=== PATIENT | female | born 1960 | race Caucasian/White ===

== ENCOUNTER 2019-09-25 19:35 | Emergency (ER) | payer MEDICARE, SELFPAY ==
[2019-09-25] VITALS (12 sets, daily range): BP systolic 103–126; BP diastolic 51–86; PULSE 78–174; RESP 17–25; TEMP 36.6; O2SAT 95–99; BMI 38.4
--- NOTE | 2019-09-25 19:58 | ED_ITS ---
Entered by Diane Rodriguez, acting as scribe for HPI - Chest Pain General: Chief Complaint: Chest Pain Stated Complaint: ABD HR Time Seen by Provider: 09/25/19 19:58 Source: patient Mode of arrival: ambulatory History of Present Illness: HPI narrative: 59 yo f came to the er pov with family with afib. Onset was an hour ago. Pt states that she is sweaty. MD complaint: chest pain Pertinent past history: other (afib) Prior episodes: Yes Onset: during rest Pain location: lateral Pain radiation: none Severity: mild Quality: fullness Associated symptoms: Deny abdominal pain, dyspnea or fever(s) Risk Factors: Coronary artery disease risk factors: none Related Data: On Oral Contraceptives: No Review of Systems General: Reports: 10 or more systems reviewed and unremarkable except in HPI and below Const: Denies: fever Eyes: Denies: change in vision ENMT: Denies: throat pain Card: Reports: chest pain and other (afib) Resp: Denies: shortness of breath GI: Denies: abdominal pain : Denies: flank pain Musc: Denies: neck pain Skin/Breast: Denies: rash Neuro: Denies: headache Psych: Denies: anxiety Endo: Denies: excessive urination Good/Lymph: Denies: easy bruising All/Imm: Denies: hives PFSH ED PFSH: Statuses (acute, chronic, etc) shown below reflect problem list status as previously entered and may not be historically accurate Social History Smoking and tobacco status: current every day smoker Course Vital Signs: Vital signs: Vital Signs Temperature 97.9 F 09/25/19 19:43 Pulse Rate 83 09/25/19 21:53 Respiratory Rate 17 09/25/19 21:15 Blood Pressure 117/80 09/25/19 21:15 Pulse Oximetry 99 09/25/19 21:15 MDM - Chest Pain Lab Data: Labs: Lab Results 09/25/19 09/25/19 09/25/19 Range/Units 20:07 20:07 20:07 WBC 10.9 H (4.0-10.0) 10^3/ uL RBC 5.78 H (4.1-5.3) 10^6/u L Hgb 16.2 H (11.5-15.3) g/dL Hct 49.7 H (37.0-47.0) % MCV 86.0 (81-99) fL MCH 28.0 (28.0-34.0) pg MCHC 32.6 (30.0-36.0) g/dL RDW 12.8 (12.1-15.1) % Plt Count 214 (130-400) 10^3/c mm MPV 11.2 H (7.4-10.4) fL Neut % (Auto) 65.0 % Lymph % (Auto) 21.1 % [place] % (Auto) 8.4 % Eos % (Auto) 4.5 % Baso % (Auto) 0.5 % Neut # (Auto) 7.1 (1.8-7.7) 10^3/u L Lymph # (Auto) 2.3 (0.8-4.8) 10^3/u L [place] # (Auto) 0.9 (0.2-0.9) 10^3/u L Eos # (Auto) 0.5 (0.0-0.8) 10^3/u L Baso # (Auto) 0.1 (0.0-0.1) 10^3/u L Nucleated RBC % (a uto) 0 % Nucleated RBCs # 0.0 /100WBC Sodium 140 (136-145) mmol/L Potassium 3.9 (3.5-5.1) mmol/L Chloride 100 (98-107) mmol/L Carbon Dioxide 24 (22-29) mmol/L Anion Gap 19.9 H (5-19) BUN 20 (8-23) mg/dL Creatinine 1.1 H (0.5-0.9) mg/dL GFR Calculation 50.5 L (90-130) mL/min Glucose 217 H (74-106) mg/dL Calcium 10.4 H (8.8-10.2) mg/Dl Total Bilirubin 0.2 (0.15-1.2) mg/dL AST 29 (0-32) U/L ALT 26 (0-33) U/L Alkaline Phosphata se 96 (35-105) IU/L Troponin T Baselin e 42 H (0-10) ng/mL Troponin T 120 Min livan (0-10) ng/mL Delta Troponin T (0-10) ABS# Total Protein 7.5 (6.6-8.7) g/dL Albumin 5.0 (3.5-5.2) g/dL Globulin 2.5 (1.3-4.6) g/dL 09/25/19 Range/Units 22:25 WBC (4.0-10.0) 10^3/ uL RBC (4.1-5.3) 10^6/u L Hgb (11.5-15.3) g/dL Hct (37.0-47.0) % MCV (81-99) fL MCH (28.0-34.0) pg MCHC (30.0-36.0) g/dL RDW (12.1-15.1) % Plt Count (130-400) 10^3/c mm MPV (7.4-10.4) fL Neut % (Auto) % Lymph % (Auto) % [place] % (Auto) % Eos % (Auto) % Baso % (Auto) % Neut # (Auto) (1.8-7.7) 10^3/u L Lymph # (Auto) (0.8-4.8) 10^3/u L [place] # (Auto) (0.2-0.9) 10^3/u L Eos # (Auto) (0.0-0.8) 10^3/u L Baso # (Auto) (0.0-0.1) 10^3/u L Nucleated RBC % (a uto) % Nucleated RBCs # /100WBC Sodium (136-145) mmol/L Potassium (3.5-5.1) mmol/L Chloride (98-107) mmol/L Carbon Dioxide (22-29) mmol/L Anion Gap (5-19) BUN (8-23) mg/dL Creatinine (0.5-0.9) mg/dL GFR Calculation (90-130) mL/min Glucose (74-106) mg/dL Calcium (8.8-10.2) mg/Dl Total Bilirubin (0.15-1.2) mg/dL AST (0-32) U/L ALT (0-33) U/L Alkaline Phosphata se (35-105) IU/L Troponin T Baselin e (0-10) ng/mL Troponin T 120 Min livan 59.33 H (0-10) ng/mL Delta Troponin T 17.33 H (0-10) ABS# Total Protein (6.6-8.7) g/dL Albumin (3.5-5.2) g/dL Globulin (1.3-4.6) g/dL Discharge Plan Discharge Patient Disposition: Home, Self-Care Clinical Impression: Atrial fibrillation Condition: Stable Prescriptions: No Action levothyroxine 175 mcg tablet 175 mcg PO DAILY RF: 0 potassium chloride 10 mEq capsule, extended release 10 meq PO DAILY RF: 0 sotalol 80 mg tablet 80 mg PO BID RF: 0 simvastatin 40 mg tablet 40 mg PO QPM RF: 0 pantoprazole 40 mg tablet,delayed release (DR/EC) 40 mg PO DAILY RF: 0 lisinopril 10 mg tablet 10 mg PO DAILY RF: 0 diltiazem HCl 120 mg capsule,extended release 24hr 120 mg PO DAILY RF: 0 montelukast 10 mg tablet 10 mg PO DAILY RF: 0 glipizide 5 mg tablet 5 mg PO DAILY RF: 0 Eliquis 5 mg tablet 5 mg PO DAILY RF: 0 Discharge Orders: Discharge Order (Routine); Ordered 09/26/19 Ordered By: Steph Broderick Referrals: [id number] [Other] Discharge Diet: Advance as tolerated Discharge Activity: Resume usual activity Patient Instructions: Atrial Fibrillation (ED) Coding Level of Care Code ED Correspondence Review Clerk for Chg Fwaleksandar The documentation recorded by the Michael martínez Stephanie Lyn, accurately reflects the service I personally performed and the decisions made by Davie hawkins Korby, MD Sep 25, 2019 19:35
[2019-09-25 20:14] LABS: Basophils # 0.1 10^3/uL (0.0-0.1); Basophils % 0.5 %; Eosinophils # 0.5 10^3/uL (0.0-0.8); Eosinophils % 4.5 %; Hematocrit 49.7 % (37.0-47.0); Hemoglobin 16.2 g/dL (11.5-15.3); Lymphocytes # 2.3 10^3/uL (0.8-4.8); Lymphocytes % 21.1 %; Mean Corpuscular HGB Conc 32.6 g/dL (30.0-36.0); Mean Platelet Volume 11.2 fL (7.4-10.4); Monocytes # 0.9 10^3/uL (0.2-0.9); Monocytes % 8.4 %; Neutrophils # 7.1 10^3/uL (1.8-7.7); Nucleated Red Blood Cells % 0 %; Platelet Count 214 10^3/cmm (130-400); Red Blood Count 5.78 10^6/uL (4.1-5.3); Red Cell Distribution Width 12.8 % (12.1-15.1); White Blood Count 10.9 10^3/uL (4.0-10.0)
[2019-09-25 20:20] LABS: Add RBC Morph No
[2019-09-25 20:29] LABS: Alanine Aminotransferase 26 U/L (0-33); Alkaline Phosphatase 96 IU/L (35-105); Anion Gap 19.9 (5-19); Aspartate Amino Transferase 29 U/L (0-32); Blood Urea Nitrogen 20 mg/dL (8-23); Calcium 10.4 mg/Dl (8.8-10.2); Carbon Dioxide 24 mmol/L (22-29); Chloride 100 mmol/L (98-107); Globulin 2.5 g/dL (1.3-4.6); Glomerular Filtration Rate 50.5 mL/min (90-130); Glucose 217 mg/dL (74-106); Potassium 3.9 mmol/L (3.5-5.1); Sodium 140 mmol/L (136-145); Total Bilirubin 0.2 mg/dL (0.15-1.2); Total Protein 7.5 g/dL (6.6-8.7)
[2019-09-25] MEDS: sodium chloride 0.9% 1,000 ML 999 ML IV (20:30)
[2019-09-25 20:31] LABS: Troponin(5th) Baseline 42 ng/mL (0-10)
[2019-09-25] MEDS: sodium chloride 0.9% 500 ML 999 ML IV (20:31)
--- NOTE | 2019-09-25 20:50 | XR_ITS ---
WS: [id number] Portable AP upright chest, 09/25/2019 Clinical Data: chest pain Comparison: Portable chest, 06/30/2019 Findings: No nodules, masses or effusions are seen. The heart is normal. The pulmonary vascularity is not increased. No pneumonia or pneumothorax is seen. Monitor leads are on the chest wall. XR/XR chest 1V portable [id number] Impression: Negative chest.
--- NOTE | 2019-09-25 22:04 | ECG_ITS ---
Measurements Intervals [place] Rate: 77 P: 86 SC: 129 QRS: -6 QRSD: 112 T: -87 QT: 424 QTc: 480 SINUS RHYTHM INCOMPLETE RIGHT BUNDLE BRANCH BLOCK MINIMAL VOLTAGE CRITERIA FOR LVH, CONSIDER NORMAL VARIANT ST DEVIATION AND MODERATE T-WAVE ABNORMALITY, CONSIDER ANTEROLATERAL ISCHEMIA ST DEVIATION AND MODERATE T-WAVE ABNORMALITY, CONSIDER INFERIOR ISCHEMIA Compared to ECG 07/02/2019 04:58:49 Sinus bradycardia no longer present Indeterminate axis no longer present T-wave abnormality still present Possible ischemia still present Electronically Signed On 09-26-2019 6:56:51 MAINFRAME SYSTEMS ENGINEER by Yohana Dejesus M.D. [email or web address]
[2019-09-25 22:46] LABS: Troponin 5 2HR 59.33 ng/mL (0-10); Troponin 5 2HR Delta 17.33 ABS# (0-10)
--- NOTE | 2019-09-25 23:56 | PC.NURSE ---
Patient ambulated to bedside commode and sink with no need for assistance. Patient did state that she would like something to drink. Noted for nurse.
--- NOTE | 2019-09-26 00:02 | PC.NURSE ---
Patient is wanting an update on test results and disposition. nurse has been notified, noted in comments for nurse and doctor.
[2019-09-26] MEDS: sodium chloride 0.9% 1,000 ML 999 ML IV (00:20)
[2019-09-26 00:23] VITALS: BP 123/54; PULSE 62; RESP 18; O2SAT 97
[2019-09-26 00:38] VITALS: BP 134/64; PULSE 69; RESP 18; O2SAT 97
--- NOTE | 2019-09-26 02:20 | W.ED.CHESTPA ---
HPI - Chest Pain General: Chief Complaint: Chest Pain Stated Complaint: ABD HR Time Seen by Provider: 09/25/19 19:58 Source: patient Mode of arrival: ambulatory Limitations: no limitations History of Present Illness: HPI narrative: 59-year-old female with a history of A. fib states she started having palpitations roughly 1 to 2 hours ago. Patient's heart rate here is in the 160s. She states that she typically goes in and out of A. fib. She has had palpitations and pain with her heart rate. She states this feels like it does when she goes into A. fib. Onset (ago): hour(s) Pain location: lateral Quality: fullness Associated symptoms: Deny abdominal pain, dyspnea, fever(s), nausea or vomiting Related Data: On Oral Contraceptives: No Review of Systems Const: Denies: fever or chills Eyes: Denies: change in vision ENMT: Denies: throat pain or mouth pain Card: Denies: chest pain Resp: Denies: shortness of breath GI: Denies: abdominal pain, nausea, vomiting or diarrhea : Denies: difficulty urinating Musc: Denies: back pain or joint pain Skin/Breast: Denies: rash Neuro: Denies: headache or behavioral changes Psych: Denies: depression Endo: Denies: excessive urination Good/Lymph: Denies: easy bruising All/Imm: Denies: hives PFSH ED PFSH: Statuses (acute, chronic, etc) shown below reflect problem list status as previously entered and may not be historically accurate Social History Smoking and tobacco status: current every day smoker Physical Exam Const: COMMON NORMALS: no apparent distress, oriented x3 and healthy appearing HENMT: COMMON NORMALS: normocephalic and external nose normal HEAD & SCALP: normocephalic NOSE: external nose normal Eye: COMMON NORMALS: PERRL PUPIL: Yes PERRL Neck/C-Spine: COMMON NORMALS: full ROM and no lymphadenopathy Chest: COMMONS NORMALS: inspection of chest normal Resp: COMMON NORMALS: normal respiratory effort, no use of accessory muscles and clear to auscultation bilaterally AUSCULTATION: clear to auscultation bilaterally Cardio: RATE: tachycardic RHYTHM: abnormal rhythm GI: COMMON NORMALS: normal to inspection, nondistended, normoactive bowel sounds, soft to palpation, non-tender and no masses PALPATION: Yes soft Back/Pelvis: THORACIC SPINE/UPPER BACK: Yes normal to inspection Extremity: COMMON NORMALS: normal to inspection, full ROM and normal capillary refill Neuro: COMMON NORMALS: oriented x3 Psych: COMMON NORMALS: mental status grossly normal and cooperative Skin: COMMON NORMALS: no rashes or lesions noted GENERAL SKIN EXAM: no rashes or lesions noted Course Vital Signs: Vital signs: Vital Signs Temperature 97.9 F 09/25/19 19:43 Pulse Rate 69 09/26/19 00:38 Respiratory Rate 18 09/26/19 00:38 Blood Pressure 134/64 09/26/19 00:38 Pulse Oximetry 97 09/26/19 00:38 MDM - Chest Pain MDM Narrative: Medical decision making narrative: Patient presents here with A. fib with RVR is converted here with Cardizem. Patient does have 2-hour troponin delta of 17 but she states she feels improved and does not want to stay. It is likely due to her A. fib. Patient is requesting discharge I feel she is stable for discharge. She is to follow-up with her primary care doctor in 2 to 5 days and return if worsening. Lab Data: Labs: Lab Results 09/25/19 09/25/19 09/25/19 Range/Units 20:07 20:07 20:07 WBC 10.9 H (4.0-10.0) 10^3/ uL RBC 5.78 H (4.1-5.3) 10^6/u L Hgb 16.2 H (11.5-15.3) g/dL Hct 49.7 H (37.0-47.0) % MCV 86.0 (81-99) fL MCH 28.0 (28.0-34.0) pg MCHC 32.6 (30.0-36.0) g/dL RDW 12.8 (12.1-15.1) % Plt Count 214 (130-400) 10^3/c mm MPV 11.2 H (7.4-10.4) fL Neut % (Auto) 65.0 % Lymph % (Auto) 21.1 % [place] % (Auto) 8.4 % Eos % (Auto) 4.5 % Baso % (Auto) 0.5 % Neut # (Auto) 7.1 (1.8-7.7) 10^3/u L Lymph # (Auto) 2.3 (0.8-4.8) 10^3/u L [place] # (Auto) 0.9 (0.2-0.9) 10^3/u L Eos # (Auto) 0.5 (0.0-0.8) 10^3/u L Baso # (Auto) 0.1 (0.0-0.1) 10^3/u L Nucleated RBC % (a uto) 0 % Nucleated RBCs # 0.0 /100WBC Sodium 140 (136-145) mmol/L Potassium 3.9 (3.5-5.1) mmol/L Chloride 100 (98-107) mmol/L Carbon Dioxide 24 (22-29) mmol/L Anion Gap 19.9 H (5-19) BUN 20 (8-23) mg/dL Creatinine 1.1 H (0.5-0.9) mg/dL GFR Calculation 50.5 L (90-130) mL/min Glucose 217 H (74-106) mg/dL Calcium 10.4 H (8.8-10.2) mg/Dl Total Bilirubin 0.2 (0.15-1.2) mg/dL AST 29 (0-32) U/L ALT 26 (0-33) U/L Alkaline Phosphata se 96 (35-105) IU/L Troponin T Baselin e 42 H (0-10) ng/mL Troponin T 120 Min livan (0-10) ng/mL Delta Troponin T (0-10) ABS# Total Protein 7.5 (6.6-8.7) g/dL Albumin 5.0 (3.5-5.2) g/dL Globulin 2.5 (1.3-4.6) g/dL 09/25/19 Range/Units 22:25 WBC (4.0-10.0) 10^3/ uL RBC (4.1-5.3) 10^6/u L Hgb (11.5-15.3) g/dL Hct (37.0-47.0) % MCV (81-99) fL MCH (28.0-34.0) pg MCHC (30.0-36.0) g/dL RDW (12.1-15.1) % Plt Count (130-400) 10^3/c mm MPV (7.4-10.4) fL Neut % (Auto) % Lymph % (Auto) % [place] % (Auto) % Eos % (Auto) % Baso % (Auto) % Neut # (Auto) (1.8-7.7) 10^3/u L Lymph # (Auto) (0.8-4.8) 10^3/u L [place] # (Auto) (0.2-0.9) 10^3/u L Eos # (Auto) (0.0-0.8) 10^3/u L Baso # (Auto) (0.0-0.1) 10^3/u L Nucleated RBC % (a uto) % Nucleated RBCs # /100WBC Sodium (136-145) mmol/L Potassium (3.5-5.1) mmol/L Chloride (98-107) mmol/L Carbon Dioxide (22-29) mmol/L Anion Gap (5-19) BUN (8-23) mg/dL Creatinine (0.5-0.9) mg/dL GFR Calculation (90-130) mL/min Glucose (74-106) mg/dL Calcium (8.8-10.2) mg/Dl Total Bilirubin (0.15-1.2) mg/dL AST (0-32) U/L ALT (0-33) U/L Alkaline Phosphata se (35-105) IU/L Troponin T Baselin e (0-10) ng/mL Troponin T 120 Min livan 59.33 H (0-10) ng/mL Delta Troponin T 17.33 H (0-10) ABS# Total Protein (6.6-8.7) g/dL Albumin (3.5-5.2) g/dL Globulin (1.3-4.6) g/dL EKG Data^: EKG 1: Attestation: I personally reviewed and interpreted this EKG as follows: EKG interpretation date: 09/25/19 EKG interpretation time: 19:52 Interpretation: afib with rvr hr [address] or t wave abnormalities EKG 2: Attestation: I personally reviewed and interpreted this EKG as follows: EKG interpretation date: 09/26/19 EKG interpretation time: 22:07 Interpretation: hr [address] or t wave abnormalities nsr Discharge Plan Discharge Patient Disposition: Home, Self-Care Clinical Impression: Atrial fibrillation Qualifiers: Atrial fibrillation type: paroxysmal Qualified Code(s): I48.0 - Paroxysmal atrial fibrillation Condition: Stable Prescriptions: No Action levothyroxine 175 mcg tablet 175 mcg PO DAILY RF: 0 potassium chloride 10 mEq capsule, extended release 10 meq PO DAILY RF: 0 sotalol 80 mg tablet 80 mg PO BID RF: 0 simvastatin 40 mg tablet 40 mg PO QPM RF: 0 pantoprazole 40 mg tablet,delayed release (DR/EC) 40 mg PO DAILY RF: 0 lisinopril 10 mg tablet 10 mg PO DAILY RF: 0 diltiazem HCl 120 mg capsule,extended release 24hr 120 mg PO DAILY RF: 0 montelukast 10 mg tablet 10 mg PO DAILY RF: 0 glipizide 5 mg tablet 5 mg PO DAILY RF: 0 Eliquis 5 mg tablet 5 mg PO DAILY RF: 0 Discharge Orders: Discharge Order (Routine); Ordered 09/26/19 Ordered By: Steph Broderick Referrals: REYES [Other] Discharge Diet: Advance as tolerated Discharge Activity: Resume usual activity Patient Instructions: Atrial Fibrillation (ED) Discharge Date/Time: 09/26/19 01:00 Coding Level of Care Code ED Payloader Operator for Wendie Mata
== END 2019-09-26 01:00 | disposition home or self-care (01) ==
PROVIDERS: Emergency Provider Emergency Medicine
DX: I48.91 Unspecified atrial fibrillation (principal); F17.210 Nicotine dependence, cigarettes, uncomplicated
CPT/HCPCS: 36415; 71045; 80053; 84484; 85025; 93005; 96360; 96361; 96374; 99282; J3490; J7030; J7040

== ENCOUNTER 2019-10-08 09:00 | Outpatient (CLI) | payer MEDICARE, SELFPAY | END 2019-10-08 09:01 | disposition home or self-care (01) | LOC: SLEEP 10-09 09:01 | DX: G47.33 Obstructive sleep apnea (adult) (pediatric) (principal) | CPT/HCPCS: 95810; 95811 ==

== ENCOUNTER 2019-10-28 08:13 | Outpatient (CLI) | payer MEDICARE, SELFPAY | END 2019-10-28 08:14 | disposition home or self-care (01) | LOC: RT 08:18 | DX: J44.9 Chronic obstructive pulmonary disease, unspecified (principal) | CPT/HCPCS: 94010 ==

== ENCOUNTER 2020-04-23 11:54 | Outpatient (CLI) | payer MEDICARE, SELFPAY ==
--- NOTE | 2020-04-23 12:10 | XRR_ITS ---
PROCEDURE INFORMATION: Exam: XR Lumbosacral Spine Complete with Flexion/Extension, 6 or More Views Exam date and time: 04/23/2020 12:51 PM Age: 59 years old Clinical indication: Pain; Lumbago; Additional info: Lumbago w/sciatica, left side TECHNIQUE: Imaging protocol: XR of the lumbosacral spine with flexion/extension, 6 or more views. Other technique: AP, both oblique, neutral, flexion and extension lateral, and spot lateral views of the lumbar spine are submitted. COMPARISON: MRI Lumbar Spine w/o [id number] 01/23/2014 3:41 PM FINDINGS: Vertebrae: Bilateral L4-L5 and L5-S1 lumbar facet primary osteoarthritis. There is 8.4 mm anterolisthesis of L4 on L5 in the neutral position. No instability with flexion or extension positioning identified. Moderate L5-S1 spondylosis, likely L5-S1 neural foraminal stenoses.. Vasculature: Moderate aortic and bilateral iliac artery atherosclerotic calcifications without evidence of aneurysm. Soft tissues: Unremarkable. XR/XR lumbar spine 6V w f/e [id number] IMPRESSION: 1. Grade 1 L4-5 degenerative type anterolisthesis. 2. No instability with flexion or extension positioning identified.
== END 2020-04-23 11:55 | disposition home or self-care (01) ==
LOC: RAD 12:00
DX: M54.42 Lumbago with sciatica, left side (principal)
CPT/HCPCS: 72114

== ENCOUNTER 2020-05-21 10:06 | Outpatient (CLI) | payer MEDICARE, SELFPAY ==
--- NOTE | 2020-05-21 10:09 | CT_ITS ---
WS: [id number] LDCT LUNG CANCER SCREENING TECHNIQUE: Noncontrast CT of the chest with coronal and sagittal reformatted images. CLINICAL INFORMATION: NICOTINE DEPENDENCE COMPARISON: CT chest 9 ,017 DLP: 70.96 mGy.cm DIvol: 2.[address] scans at [facility] use at least one of these dose optimization techniques: automat ed exposure control; mA and/or kV adjustment per patient size (includes targeted exams where dose is matched to clinical indication); or iterative reconstruction. FINDINGS: No acute pulmonary infiltrates. Tiny 1 to 2 mm noncalcified nodule left upper lobe. A few calcified g ranulomas. No axillary lymphadenopathy. Coronary calcification. Normal caliber thoracic aorta. Cardio megaly. A few prominent anterior mediastinal lymph nodes similar to previous. Slightly prominent agusto r lymph nodes also similar to previous. Small esophageal hiatal hernia. Hypertrophic changes thoracic spine. CT/CT lung screening [id number] IMPRESSION: LUNG-RADS: 2-Benign Appearance or Behavior FOLLOW UP: 12 Month: Continue annual screening with LDCT
== END 2020-05-21 10:07 | disposition home or self-care (01) ==
LOC: CT 10:07
DX: Z12.2 Encounter for screening for malignant neoplasm of respiratory organs (principal); F17.210 Nicotine dependence, cigarettes, uncomplicated
CPT/HCPCS: G0297

== ENCOUNTER 2020-07-24 23:01 | Observation (INO) | payer MEDICARE, SELFPAY ==
--- NOTE | 2020-07-24 23:03 | XRR_ITS ---
PROCEDURE INFORMATION: Exam: XR Chest, 1 View Exam date and time: 07/24/2020 11:35 PM Age: 60 years old Clinical indication: Chest pain; Prior surgery; Surgery type: Lumpectomy; Patient HX: Palpitations, a fib, cp TECHNIQUE: Imaging protocol: XR of the chest Views: 1 view. COMPARISON: CR XR chest 1V portable [id number] 09/25/2019 9:24 PM FINDINGS: Lungs: Visualized portions of the lungs are clear. Pleural space: Unremarkable. No pleural effusion. No pneumothorax. Heart/Mediastinum: Heart is upper limits of normal in size. Bones/joints: Unremarkable. XR/XR chest 1V portable [id number] IMPRESSION: No acute infiltrates. No significant change from 09/25/2019
--- NOTE | 2020-07-24 23:04 | ECG_ITS ---
[facility] Test Date: 2020-07-24 Pat Name: Trena Segura Department: Room: Gender: Female Socket Puller: : 1960 Requested By: Blanca Longoria Order Number: [id number] John MD: ABDI AMBROSE Measurements Intervals [place] Rate: 141 P: -10 DC: 173 QRS: -67 QRSD: 124 T: 94 QT: 333 QTc: 510 Interpretive Statements SINUS TACHYCARDIA, POSSIBLE ATRIAL FLUTTER RIGHT BUNDLE BRANCH BLOCK [120+ ms QRS DURATION, UPRIGHT V1, 40+ ms S IN I/aVL/V4/V5/V6] LEFT ANTERIOR FASCICULAR BLOCK [QRS AXIS <= -45, QR IN I, RS IN II] LEFT VENTRICULAR HYPERTROPHY AND ST-T CHANGE [VOLTAGE CRITERIA PLUS ST/T ABNORMALITY] POSSIBLE SEPTAL MYOCARDIAL INFARCTION , OF INDETERMINATE AGE [30 ms Q WAVE IN V1/V2] Compared to ECG 09/25/2019 22:07:22 Patient is tachycardic now Electronically Signed On 07-25-2020 18:28:09 CDT by ABDI AMBROSE [id number]
[2020-07-24 23:11] VITALS: BP 117/76; PULSE 128; RESP 18; TEMP 36.4; O2SAT 97; BMI 35.9
[2020-07-24 23:22] VITALS: O2SAT 100
[2020-07-24 23:30] VITALS: BP 127/85; PULSE 141; RESP 23; O2SAT 98
[2020-07-24 23:33] VITALS: BP 127/85; PULSE 140; RESP 19; O2SAT 99
[2020-07-24 23:35] LABS: Basophils # 0.1 10^3/uL (0.0-0.1); Basophils % 0.6 %; Eosinophils # 0.6 10^3/uL (0.0-0.8); Eosinophils % 6.3 %; Hematocrit 49.4 % (37.0-47.0); Hemoglobin 16.4 g/dL (11.5-15.3); Lymphocytes # 2.1 10^3/uL (0.8-4.8); Lymphocytes % 24.2 %; Mean Corpuscular HGB Conc 33.2 g/dL (30.0-36.0); Mean Corpuscular Hemoglobin 29.3 pg (28.0-34.0); Mean Corpuscular Volume 88.2 fL (81-99); Mean Platelet Volume 10.9 fL (7.4-10.4); Monocytes # 0.8 10^3/uL (0.2-0.9); Neutrophils # 5.26 10^3/uL (1.8-7.7); Neutrophils % 59.4 %; Nucleated Red Blood Cells % 0 %; Platelet Count 204 10^3/cmm (130-400); Red Cell Distribution Width 13.1 % (12.1-15.1); White Blood Count 8.9 10^3/uL (4.0-10.0)
[2020-07-24 23:45] VITALS: BP 113/88; PULSE 113; RESP 21; O2SAT 100
[2020-07-24 23:45] LABS: INR 0.94 (0.8-1.2)
--- NOTE | 2020-07-24 23:52 | ED_ITS ---
HPI - Arrhythmia/Palpitations General: Chief Complaint: Arrhythmia/Palpitations Stated Complaint: possible a fib Time Seen by Provider: 07/24/20 23:17 Source: patient and family Mode of arrival: ambulatory Limitations: no limitations History of Present Illness: HPI narrative: Trena is a very nice 60-year-old female who comes in complaining of chest discomfort with palpitations. Patient has a history of paroxysmal atrial fibrillation as she states at 2 PM today she felt her heart go into A. fib. It is uncomfortable in her chest. She cannot describe the discomfort any further other than as a discomfort . She has shortness of breath more so when she exerts herself. She denies any radiation of the discomfort, diaphoresis, nausea vomiting or other complaint. Patient is unaware of any exacerbating or alleviating factors other than exertion makes her shortness of breath worse. She denies fever, cough, chills, headache, abdominal, back pain or urinary symptoms. Patient denies missing any of her medications but states that she did increase her caffeine intake today and she can be sensitive to that. Associated symptoms: Deny diaphoresis, nausea, pre-syncope, syncope or vomiting Review of Systems Const: Denies: fever(s), chills, body aches, fatigue, malaise or diaphoresis Eyes: Denies: change in vision, blurry vision, photophobia, eye discomfort, eye discharge, eye redness or yellow eyes ENMT: Denies: throat pain, odynophagia, hoarseness, swelling of lips/tongue, ear or mastoid pain, ear discharge, change in hearing or nasal discharge Card: Denies: edema, lightheadedness, syncope, pre-syncope, dyspnea on exertion or orthopnea Resp: Denies: productive cough, non-productive cough, wheezing, hemoptysis or chest congestion GI: Denies: abdominal pain, nausea, vomiting, hematemesis, coffee ground emesis, heartburn, diarrhea, constipation, GI cramping, hematochezia or melena : Denies: flank pain, dysuria, urinary frequency, urinary urgency or hematuria Musc: Denies: neck pain, back pain, extremity pain, extremity swelling, joint pain, joint swelling, joint redness, joint warmth or joint stiffness Skin/Breast: Denies: rash, pruritus, erythema, skin pain or skin tenderness Neuro: Denies: headache(s), numbness in extremities, weakness in extremities, sensory changes, lack of coordination, difficulty walking, dizziness, vertigo, confusion, Slurred speech present or seizure-like activity Good/Lymph: Denies: easy bruising, easy bleeding, petechiae, purpura or enlarged lymph nodes All/Imm: Denies: urticaria, throat swelling, tongue swelling, facial swelling or acute wheezing PFSH ED PFSH: Medical History History of chronic atrial fibrillation History of COPD History of degenerative joint disease History of depression History of diverticulosis History of fibromyalgia History of fracture of lower extremity History of hypertension History of hypothyroidism Hx of atrial flutter Hx of chronic congestive heart failure Hx of colonic polyps Hx of coronary artery disease Hx of diastolic dysfunction Hx of gastroesophageal reflux (GERD) Hx of gout Hx of hemorrhoids Hx of hyperlipidemia Hx of myocardial infarction Hx of nicotine dependence Hx of obesity Hx of osteoporosis Hx of simple renal cyst Hx of sleep apnea Hx of type 2 diabetes mellitus Surgical History History of coronary artery stent placement History of total left knee replacement History of total right knee replacement (TKR) Hx of breast reduction, elective Hx of colonoscopy Hx of coronary angioplasty Hx of esophagogastroduodenoscopy Hx of skin graft Hx of tonsillectomy Social History Smoking and tobacco status: current every day smoker Physical Exam Const: COMMON NORMALS: no acute distress, patient oriented x3, no limitations and alert GENERAL APPEARANCE: cooperative HENMT: COMMON NORMALS: normocephalic, atraumatic, external ears normal, EAC's normal and Normal external nose present HEAD & SCALP: normal to inspection, normocephalic and atraumatic FACE & SINUS: normal facial exam and face symmetric NOSE: Normal external nose present and Normal nares present EXTERNAL EAR: Yes external ears normal EXTERNAL AUDITORY CANAL: EAC's normal MOUTH: Normal oral and palatal mucosa present, lip normal and tongue normal Eye: COMMON NORMALS: Equal, round and reactive pupils present and conjunctivae normal GENERAL EYE: appearance normal, both eyes and all related structures ALIGNMENT: Yes alignment normal PERIORBITAL: periorbital findings normal EYELID: eyelids normal CONJUNCTIVA: Yes conjunctivae normal SCLERA: sclerae normal PUPIL: Yes Equal, round and reactive pupils present Neck/C-Spine: COMMON NORMALS: full ROM, no lymphadenopathy, supple, no meningeal signs and no JVD GENERAL: Yes normal visual inspection and Yes trachea midline Chest: COMMONS NORMALS: normal inspection of the chest and normal palpation of entire chest wall Resp: COMMON NORMALS: normal respiratory effort, No retractions, No use of accessory muscles and clear to auscultation bilaterally EFFORT & INSPECTION: Yes able to speak in complete sentences and Yes symmetric chest movement AUSCULTATION: clear to auscultation bilaterally, no crackles, no rales, no rhonchi and no wheezes Cardio: COMMON NORMALS: no JVD, S1 normal heart sound present and S2 normal heart sound present RATE: tachycardic RHYTHM: abnormal rhythm irregularly irregular HEART SOUNDS: S1 normal heart sound present, S2 normal heart sound present, no click, no gallops, no murmurs and no rubs GI: COMMON NORMALS: Soft to palpation and No hepatosplenomegaly present PALPATION: Yes Soft to palpation, No Tenderness to palpation present (GI), No Guarding due to palpation present (GI), No Rigid due to palpation, Yes No hepatosplenomegaly present, No Hernia present, No Palpable mass present and No Pulsatile mass present : COMMON NORMALS: Yes no CVA tenderness BLADDER/KIDNEY EXAM: Yes no CVA tenderness EXTERNAL FEMALE EXAM: No Hernia present Back/Pelvis: COMMON NORMALS: no CVA tenderness, thoracic and lumbar spine normal to inspection, no thoracic nor lumbar tenderness and thoraco-lumbar ROM normal Extremity: COMMON NORMALS: normal to inspection, full ROM, capillary refill normal, no joint enlargement, no clubbing, cyanosis or edema and no calf tenderness Neuro: COMMON NORMALS: patient oriented x3, CN's II-XII intact bilaterally, moves all extremities, no focal motor deficits and no sensory deficits noted SENSORIUM/ORIENTATION: Yes alert MENINGEAL SIGNS: Yes no meningeal signs SPEECH: speech normal Psych: COMMON NORMALS: mental status grossly normal, Normal thought process present, cooperative, normal affect, speech normal and activity/motor behavior normal SPEECH: Yes normal speech THOUGHT PROCESS: Normal thought process present Skin: COMMON NORMALS: no rashes or lesions noted, turgor normal, no jaundice, no petechiae and no mottling GENERAL SKIN EXAM: no rashes or lesions noted and turgor normal Course Vital Signs: Vital signs: Vital Signs Temperature 97.5 F L 07/24/20 23:11 Pulse Rate 136 H 07/25/20 00:34 Respiratory Rate 23 H 07/25/20 00:34 Blood Pressure 142/98 07/25/20 00:34 Pulse Oximetry 98 07/25/20 00:34 MDM - Arrhythmia/Palpitations MDM Narrative: Medical decision making narrative: Trena's heart rate improved after the second bolus and we did a trial of keeping her off the drip but within just a few minutes her heart rate went back into the 120 range. We had to turn the drip back on and up to a higher rate to keep it down. Currently her heart rate is 103 at 7.5 mg/h of diltiazem. She had a positive delta but I think this was due to the elevated heart rate as the patient has no significant ST or T wave changes and is not having any chest discomfort any longer. Her magnesium was low and I replaced this but the drip did not seem to cause any change in her heart rate. Patient is already anticoagulated so she will not need any additional anticoagulation at this time. I endorsed the case to Dr. Dickinson and he is agreeable to admission. Lab Data: Attestation: I reviewed the patient's lab results. Labs: Lab Results 07/24/20 07/24/20 07/24/20 Range/Units 23:29 23:29 23:29 WBC 8.9 (4.0-10.0) 10^3/ uL RBC 5.60 H (4.1-5.3) 10^6/u L Hgb 16.4 H (11.5-15.3) g/dL Hct 49.4 H (37.0-47.0) % MCV 88.2 (81-99) fL MCH 29.3 (28.0-34.0) pg MCHC 33.2 (30.0-36.0) g/dL RDW 13.1 (12.1-15.1) % Plt Count 204 (130-400) 10^3/c mm MPV 10.9 H (7.4-10.4) fL Neut % (Auto) 59.4 % Lymph % (Auto) 24.2 % [place] % (Auto) 9.0 % Eos % (Auto) 6.3 % Baso % (Auto) 0.6 % Neut # (Auto) 5.26 (1.8-7.7) 10^3/u L Lymph # (Auto) 2.1 (0.8-4.8) 10^3/u L [place] # (Auto) 0.8 (0.2-0.9) 10^3/u L Eos # (Auto) 0.6 (0.0-0.8) 10^3/u L Baso # (Auto) 0.1 (0.0-0.1) 10^3/u L Nucleated RBC % (a uto) 0 % Nucleated RBCs # 0.0 /100WBC PT 12.90 (12.1-14.9) SECO NDS INR 0.94 (0.8-1.2) Sodium 134 L (136-145) mmol/L Potassium 4.1 (3.5-5.1) mmol/L Chloride 99 (98-107) mmol/L Carbon Dioxide 21 L (22-29) mmol/L Anion Gap 18.1 (5-19) BUN 14 (8-23) mg/dL Creatinine 0.9 (0.5-0.9) mg/dL GFR Calculation 63.4 L (90-130) mL/min Glucose 261 H (65-115) mg/dL Calculated Osmolal ity 288 (285-295) mOsm/k g Calcium 9.6 (8.5-10.5) mg/dL Magnesium 1.6 L (1.7-2.3) mg/dL Total Bilirubin 0.3 (0.15-1.2) mg/dL AST 28 (0-32) U/L ALT 35 H (0-33) U/L Alkaline Phosphata se 137 H (35-105) IU/L Troponin T Baselin e (0-10) ng/L Troponin T 120 Min [place] (0-10) ng/L Delta Troponin T (0-10) ABS# Total Protein 6.9 (6.6-8.7) g/dL Albumin 4.6 (3.5-5.2) g/dL Globulin 2.3 (1.3-4.6) g/dL TSH 2.73 (0.27-4.20) uIU/ mL Free T4 1.58 (0.82-1.77) ng/d L Urine Color (Yellow) Urine Appearance (CLEAR) Urine pH (5-7) Ur Specific Gravit y (1.005-1.030) Urine Protein (Negative) Urine Glucose (UA) (Normal) Urine Ketones (Negative) Urine Blood (Negative) Urine Nitrate (Negative) Urine Bilirubin (Negative) Urine Urobilinogen (Negative) mg/dL Ur Leukocyte Abida ase (Negative) 07/24/20 07/25/20 07/25/20 Range/Units 23:29 01:06 01:27 WBC (4.0-10.0) 10^3/ uL RBC (4.1-5.3) 10^6/u L Hgb (11.5-15.3) g/dL Hct (37.0-47.0) % MCV (81-99) fL MCH (28.0-34.0) pg MCHC (30.0-36.0) g/dL RDW (12.1-15.1) % Plt Count (130-400) 10^3/c mm MPV (7.4-10.4) fL Neut % (Auto) % Lymph % (Auto) % [place] % (Auto) % Eos % (Auto) % Baso % (Auto) % Neut # (Auto) (1.8-7.7) 10^3/u L Lymph # (Auto) (0.8-4.8) 10^3/u L [place] # (Auto) (0.2-0.9) 10^3/u L Eos # (Auto) (0.0-0.8) 10^3/u L Baso # (Auto) (0.0-0.1) 10^3/u L Nucleated RBC % (a uto) % Nucleated RBCs # /100WBC PT (12.1-14.9) SECO NDS INR (0.8-1.2) Sodium (136-145) mmol/L Potassium (3.5-5.1) mmol/L Chloride (98-107) mmol/L Carbon Dioxide (22-29) mmol/L Anion Gap (5-19) BUN (8-23) mg/dL Creatinine (0.5-0.9) mg/dL GFR Calculation (90-130) mL/min Glucose (65-115) mg/dL Calculated Osmolal ity (285-295) mOsm/k g Calcium (8.5-10.5) mg/dL Magnesium (1.7-2.3) mg/dL Total Bilirubin (0.15-1.2) mg/dL AST (0-32) U/L ALT (0-33) U/L Alkaline Phosphata se (35-105) IU/L Troponin T Baselin e 48 H (0-10) ng/L Troponin T 120 Min [place] 62.08 H (0-10) ng/L Delta Troponin T 14.08 H* (0-10) ABS# Total Protein (6.6-8.7) g/dL Albumin (3.5-5.2) g/dL Globulin (1.3-4.6) g/dL TSH (0.27-4.20) uIU/ mL Free T4 (0.82-1.77) ng/d L Urine Color Straw (Yellow) Urine Appearance Clear (CLEAR) Urine pH 6 (5-7) Ur Specific Gravit y 1.005 (1.005-1.030) Urine Protein Neg (Negative) Urine Glucose (UA) Trace H (Normal) Urine Ketones Negative (Negative) Urine Blood Neg (Negative) Urine Nitrate Negative (Negative) Urine Bilirubin Neg (Negative) Urine Urobilinogen Norm (Negative) mg/dL Ur Leukocyte Abida ase Negative (Negative) Imaging Data^: CXR: Attestation: I personally reviewed and interpreted this imaging study as follows: My impression: No acute cardiopulmonary findings. EKG Data^: EKG 1: Attestation: I personally reviewed and interpreted this EKG as follows: EKG interpretation date: 07/25/20 EKG interpretation time: 23:25 Interpretation: Atrial fibrillation with rapid ventricular [place] 141 beats a minute. Right bundle branch block. Left axis deviation. Left anterior f ascicular block. LVH. Nonspecific ST and T wave changes. Other EKG comments: Chest X-Ray 07/24/20 23:03 IMPRESSION: No acute infiltrates. No significant change from 09/25/2019 EKG 2: Attestation: I personally reviewed and interpreted this EKG as follows: EKG interpretation date: 07/25/20 EKG interpretation time: 01:15 Interpretation: Probable atrial flutter with a ventricular rate of 136 beats a minute, left axis deviation, left anterior fascicular block, left ventricular perjury, no other acute abnormalities. Other EKG comments: Chest X-Ray 07/24/20 23:03 IMPRESSION: No acute infiltrates. No significant change from 09/25/2019 Discharge Plan Discharge Patient Disposition: Placed in Observation Clinical Impression: Atrial fibrillation with rapid ventricular response Condition: Stable Prescriptions: No Action levothyroxine 175 mcg tablet 175 mcg PO DAILY RF: 0 potassium chloride 10 mEq capsule, extended release 10 meq PO DAILY RF: 0 sotalol 80 mg tablet 80 mg PO BID RF: 0 simvastatin 40 mg tablet 40 mg PO QPM RF: 0 pantoprazole 40 mg tablet,delayed release (DR/EC) 40 mg PO DAILY RF: 0 lisinopril 10 mg tablet 10 mg PO DAILY RF: 0 diltiazem HCl 120 mg capsule,extended release 24hr 120 mg PO DAILY RF: 0 montelukast 10 mg tablet 10 mg PO DAILY RF: 0 glipizide 5 mg tablet 5 mg PO DAILY RF: 0 Eliquis 5 mg tablet 5 mg PO DAILY RF: 0 Referrals: Nirmal Hines [Primary Care Provider] - Coding Level of Care Code ED 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
[2020-07-24 23:53] LABS: Troponin(5th) Baseline 48 ng/L (0-10)
[2020-07-24 23:58] VITALS: BP 113/88; PULSE 142; RESP 23; O2SAT 99
[2020-07-24] MEDS: sodium chloride 0.9% 1,000 ML 999 ML IV (23:58)
[2020-07-25] VITALS (16 sets, daily range): BP systolic 98–150; BP diastolic 51–110; PULSE 68–142; RESP 16–28; TEMP 36.4; O2SAT 92–100
[2020-07-25 00:03] LABS: Alanine Aminotransferase 35 U/L (0-33); Albumin Level 4.6 g/dL (3.5-5.2); Alkaline Phosphatase 137 IU/L (35-105); Aspartate Amino Transferase 28 U/L (0-32); Blood Urea Nitrogen 14 mg/dL (8-23); Calcium 9.6 mg/dL (8.5-10.5); Carbon Dioxide 21 mmol/L (22-29); Chloride 99 mmol/L (98-107); Free T4 Free Thyroxine 1.58 ng/dL (0.82-1.77); Globulin 2.3 g/dL (1.3-4.6); Glomerular Filtration Rate 63.4 mL/min (90-130); Glucose 261 mg/dL (65-115); Magnesium 1.6 mg/dL (1.7-2.3); Osmolality Calculated 288 mOsm/kg (285-295); Sodium 134 mmol/L (136-145); Thyroid Stimulating Hormone 2.73 uIU/mL (0.27-4.20); Total Bilirubin 0.3 mg/dL (0.15-1.2); Total Protein 6.9 g/dL (6.6-8.7)
[2020-07-25 00:04] LABS: Anion Gap 18.1 (5-19); Potassium 4.1 mmol/L (3.5-5.1)
[2020-07-25] MEDS: magnesium sulfate premix 2 GM/50 ML PIGGYBACK IV (00:33)
--- NOTE | 2020-07-25 01:04 | ECG_ITS ---
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1960 Requested By: Blanca Longoria Order Number: [id number] John MD: ABDI AMBROSE Measurements Intervals [place] Rate: 136 P: 41 ID: [id number] QRS: -59 QRSD: 129 T: 97 QT: 349 QTc: 527 Interpretive Statements SINUS TACHYCARDIA RIGHT BUNDLE BRANCH BLOCK [120+ ms QRS DURATION, UPRIGHT V1, 40+ ms S IN I/aVL/V4/V5/V6] LEFT ANTERIOR FASCICULAR BLOCK [QRS AXIS <= -45, QR IN I, RS IN II] LEFT VENTRICULAR HYPERTROPHY AND ST-T CHANGE [VOLTAGE CRITERIA PLUS ST/T ABNORMALITY] Compared to ECG 07/24/2020 23:25:34 Myocardial infarct finding no longer present ST (T wave) deviation still present Electronically Signed On 07-25-2020 18:32:22 CDT by ABDI AMBROSE [id number]
[2020-07-25 01:37] LABS: Add Urine Microscopic? NO
[2020-07-25 01:48] LABS: Protein Urine Neg (Negative); Specific Gravity, Urine 1.005 (1.005-1.030); Urine Appearance Clear (CLEAR); Urine Color Straw (Yellow); pH Urine 6 (5-7)
[2020-07-25 01:49] LABS: Bilirubin Urine Neg (Negative); Blood Urine Neg (Negative); Glucose Urine UA Trace (Normal); Ketones Urine Negative (Negative); Leukocyte Esterase Urine Negative (Negative); Nitrate Urine Negative (Negative); Urobilinogen Urine Norm (Negative)
[2020-07-25 02:00] LABS: Troponin 5 2HR 62.08 ng/L (0-10)
[2020-07-25 02:16] LABS: Troponin 5 2HR Delta 14.08 ABS# (0-10)
--- NOTE | 2020-07-25 02:19 | PC.NURSE ---
lab called critical 2 hour delta 14.08. Notified Dr. Preston. No orders at this time
--- NOTE | 2020-07-25 02:29 | PM.HP ---
Providers/Chief Complaint Primary Care Provider: Nirmal Hines Chief Complaint: possible a fib History of Present Illness 60-year-old female with a past medical history significant for chronic obstructive pulmonary disease, tobacco abuse, hypothyroidism, diabetes mellitus, dyslipidemia, hypertension, coronary artery disease, paroxysmal atrial fibrillation/flutter on sotalol, diltiazem and Eliquis was presented to the hospital with palpitations which started earlier today. Patient stated that she has recently been under a lot of stress due to in the family. Has missed multiple doses of for diltiazem this week. Today she noted a funny sensation during which time she checked her blood pressure and heart rate and noted elevated rate. Denied chest pain. Denied shortness of breath. No recent fever, chills, nausea vomiting. Denied abdominal pain, diarrhea constipation. Upon arrival to emergency room she was noted to be in rapid rate in low 140s Initial laboratory workup showed a WBC of 8.9, hemoglobin is 16.4, hematocrit of 49.4 and a platelet count of 204. INR of 0.94. Sodium 134, potassium 4.1, chloride 99, bicarb 21, BUN 14 and creatinine is 0.9. Glucose was elevated 261. Magnesium of 1.6. AST of 28, ALT of 35. TSH of 2.73 and free T4 1.58. In ER patient was started on Cardizem gtt. Also given IL Bolus of NS as well as magnesium 2g IV x 1. Review of Systems General: Reports: 10 or more systems reviewed and unremarkable except in HPI and below Medications/Allergies Home Medications Medication Instructions Recorded Confirmed Last Taken Type apixaban [Eliquis] 5 mg PO DAILY 09/25/19 06/29/20 09/25/19 History diltiazem HCl 120 mg PO DAILY 09/25/19 06/29/20 09/25/19 History glipizide 5 mg PO DAILY 09/25/19 06/29/20 09/25/19 History levothyroxine 175 mcg PO DAILY 09/25/19 06/29/20 09/25/19 History lisinopril 10 mg PO DAILY 09/25/19 06/29/20 09/25/19 History montelukast 10 mg PO DAILY 09/25/19 06/29/20 09/24/19 History pantoprazole 40 mg PO DAILY 09/25/19 06/29/20 09/25/19 History potassium chloride 10 meq PO DAILY 09/25/19 06/29/20 09/25/19 History simvastatin 40 mg PO QPM 09/25/19 06/29/20 09/24/19 History sotalol 80 mg PO BID 09/25/19 06/29/20 09/25/19 History Allergies Allergy/AdvReac Type Severity Reaction Status Date / Time latex Allergy Unknown Unknown Unverified 10/09/19 13:01 Penicillins Allergy Unknown Unknown Unverified 10/09/19 13:01 adhesive tape Allergy RASH Verified 06/03/20 08:09 PFSH Acute PFSH: Medical History History of chronic atrial fibrillation History of COPD History of degenerative joint disease History of depression History of diverticulosis History of fibromyalgia History of fracture of lower extremity History of hypertension History of hypothyroidism Hx of atrial flutter Hx of chronic congestive heart failure Hx of colonic polyps Hx of coronary artery disease Hx of diastolic dysfunction Hx of gastroesophageal reflux (GERD) Hx of gout Hx of hemorrhoids Hx of hyperlipidemia Hx of myocardial infarction Hx of nicotine dependence Hx of obesity Hx of osteoporosis Hx of simple renal cyst Hx of sleep apnea Hx of type 2 diabetes mellitus Surgical History History of coronary artery stent placement History of total left knee replacement History of total right knee replacement (TKR) Hx of breast reduction, elective Hx of colonoscopy Hx of coronary angioplasty Hx of esophagogastroduodenoscopy Hx of skin graft Hx of tonsillectomy Social History Smoking and tobacco status: current every day smoker Vitals/I&O/Wt Last Vital Signs Temp 97.5 F L 07/24/20 23:11 Pulse 136 H 07/25/20 00:34 Resp 23 H 07/25/20 00:34 BP 142/98 07/25/20 00:34 Pulse Ox 98 07/25/20 00:34 07/24/20 07/24/20 07/25/20 14:59 22:59 06:59 Intake Total 1050 / 1050 Balance 1050 / 1050 Weight last 48 hrs Weight 86.183 kg Physical Exam Narrative: EXAM NARRATIVE: General- alert awake oriented no apparent distress HEENT -grossly unremarkable CVS- irregularly irregular rhythm Chest -clear to auscultation bilaterally Abdomen-soft non-tender non-distended Extremities-no edema Data : 07/24/20 23:29 07/24/20 23:29 A&P Assessment and plan (1) Atrial fibrillation with rapid ventricular response: Status: Acute (2) Hypertension: Status: Acute (3) Hyperlipidemia: Status: Acute (4) Coronary artery disease: Status: Acute (5) History of COPD: Status: Acute Atrial fibrillation with RVR - Continue cardizem gtt - Titrate to keep HR < 100 - Resume Sotalol 80 mg PO BID - Continue Eliquis 5 mg PO BID - If doing well resume cardizem 120 mg PO daily in am and titrate off gtt. - Consider cardiology consult in am - Monitor on tele Hypertension - On cardizem gtt - Resume Lisinpril 10 mg PO daily - Meds as above Diabetes Mellitus - Sliding scale insulin - Diabetic/Cardic diet - Hold oral meds COPD w/o exacerbation - Duoneb Q6hr PRN for dyspenea - Supplemental o2 as needed Dyslipidemia - Simvastatin 40 mg PO daily Hypothyroidism - Levothyroxine 175 mcg PO daily - TSH/FT4- WNL DVT ppx - Eliquis 5 mg PO BID Attestations Medical Necessity Statement*: Patient is admitted with atrial fibrillation with rapid ventricular response requiring IV Cardizem anticipate less than 2 midnight stay in hospital for evaluation and treatment Coding Level of Care Code Acute Linux Systems Engineer for Wendie Fwaleksandar Diagnoses Atrial fibrillation with rapid ventricular response I48.91 Hypertension I10 Hyperlipidemia E78.5 Coronary artery disease I25.10 History of COPD Z87.09
--- NOTE | 2020-07-25 02:38 | PC.NURSE ---
Titrated Cardizem drip up to 7.5mg/hr per ED physician verbal order.
--- NOTE | 2020-07-25 03:12 | PC.NURSE ---
Report called to Ruth MENDOZA in [facility].
--- NOTE | 2020-07-25 04:08 | PC.NURSE ---
Patient received from ED via stretcher. Patient able to ambulate to bed with standby assist. Cardizem running at 7.5ml/hr on arrival. Telemetry placed. Patient currently NSR with rate mid 70s. Decreased cardizem drip to 5ml/hr. Patient denies palpitations, pain or other needs. Patient stated, I just want to sleep right now. Patient pleasant and cooperative. No distress observed. Admission completed as documented.
--- NOTE | 2020-07-25 04:43 | PC.NURSE ---
Informed Dr Dickinson patient has returned to NSR with heart rate at 70 [address]. to floor and received verbal order to d/c cardizem gtt and give am home dose of po cardizem now.
--- NOTE | 2020-07-25 05:04 | ECG_ITS ---
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: : 1960 Requested By: Blanca Longoria Order Number: [id number] John MD: ABDI AMBROSE Measurements Intervals [place] Rate: 60 P: 70 IL: 131 QRS: -64 QRSD: 125 T: 246 QT: 459 QTc: 461 Interpretive Statements SINUS RHYTHM RIGHT BUNDLE BRANCH BLOCK [120+ ms QRS DURATION, UPRIGHT V1, 40+ ms S IN I/aVL/V4/V5/V6] LEFT ANTERIOR FASCICULAR BLOCK [QRS AXIS <= -45, QR IN I, RS IN II] LEFT VENTRICULAR HYPERTROPHY AND ST-T CHANGE [VOLTAGE CRITERIA PLUS ST/T ABNORMALITY] POSSIBLE SEPTAL MYOCARDIAL INFARCTION [30 ms Q WAVE IN V1/V2], OF INDETERMINATE AGE Compared to ECG 07/25/2020 01:15:26 Myocardial infarct finding now present Sinus tachycardia no longer present ST (T wave) deviation still present Electronically Signed On 07-25-2020 18:32:14 CDT by ABDI AMBROSE [id number]
[2020-07-25] MEDS: dilTIAZem ER (24HR) 120 mg Capsule PO (05:10)
[2020-07-25 05:43] LABS: Basophils % 0.6 %; Eosinophils # 0.5 10^3/uL (0.0-0.8); Eosinophils % 6.4 %; Hematocrit 45.7 % (37.0-47.0); Hemoglobin 15.1 g/dL (11.5-15.3); Lymphocytes # 1.9 10^3/uL (0.8-4.8); Lymphocytes % 26.1 %; Mean Corpuscular Hemoglobin 29.2 pg (28.0-34.0); Mean Corpuscular Volume 88.4 fL (81-99); Mean Platelet Volume 10.8 fL (7.4-10.4); Monocytes # 0.8 10^3/uL (0.2-0.9); Monocytes % 10.5 %; Neutrophils # 4.02 10^3/uL (1.8-7.7); Neutrophils % 56.1 %; Nucleated Red Blood Cells % 0 %; Platelet Count 165 10^3/cmm (130-400); Red Blood Count 5.17 10^6/uL (4.1-5.3); Red Cell Distribution Width 13.2 % (12.1-15.1); White Blood Count 7.2 10^3/uL (4.0-10.0)
[2020-07-25 06:12] LABS: Anion Gap 17.2 (5-19); Blood Urea Nitrogen 11 mg/dL (8-23); Calcium 8.9 mg/dL (8.5-10.5); Carbon Dioxide 21 mmol/L (22-29); Chloride 105 mmol/L (98-107); Glomerular Filtration Rate 72.7 mL/min (90-130); Glucose 159 mg/dL (65-115); Magnesium 2.1 mg/dL (1.7-2.3); Osmolality Calculated 291 mOsm/kg (285-295); Potassium 4.2 mmol/L (3.5-5.1); Sodium 139 mmol/L (136-145); Thyroid Stimulating Hormone 2.36 uIU/mL (0.27-4.20); Troponin 5 6HR 65.48 ng/L (0-10)
[2020-07-25 06:22] LABS: Troponin 5 6HR Delta 17.48 ng/L (0-12)
[2020-07-25 06:27] LABS: Glucose Point of Care 155 mg/dL (70-110)
[2020-07-25] MEDS: apixaban 5 mg Tablet PO (08:10)
[2020-07-25] MEDS: potassium chloride ER 10 mEq Tablet PO (08:10)
[2020-07-25] MEDS: levothyroxine 150 mcg Tablet PO (08:10)
[2020-07-25] MEDS: sotalol 80 mg Tablet PO (08:10)
[2020-07-25] MEDS: lisinopril 10 mg Tablet PO (08:10)
[2020-07-25] MEDS: levothyroxine 25 mcg Tablet PO (08:10)
[2020-07-25] MEDS: montelukast sodium 10 mg Tablet PO (08:10)
[2020-07-25] MEDS: pantoprazole DR 40 mg Tablet PO (08:11)
--- NOTE | 2020-07-25 08:36 | PM.DCS ---
Discharge Providers Date of Admission: 07/25/20 02:24 Date of Discharge: July 25, 2020 Attending Provider at Admission: Bindu Dickinson Attending Provider at Discharge: Stephen Wright MD Primary Care Provider: Nirmal Hines Diagnoses at Discharge Discharge Diagnosis (1) Atrial fibrillation with rapid ventricular response: Status: Acute Permanent problem details: She is converted to sinus rhythm. She had missed several doses of sotalol and Cardizem, likely explaining her recurrent atrial fibrillation with rapid ventricular rate. Previous to this she had had 9 months free of any known recurrence (2) Hypertension: Status: Acute (3) Hyperlipidemia: Status: Acute (4) Coronary artery disease: Status: Acute (5) History of COPD: Status: Acute Reason for Visit Reason for Visit: possible a fib Hospital Course Hospital Course: Trena is a 60-year-old white female who presented to the emergency department with complaints of fast irregular heartbeat. She was found to be in atrial fibrillation with rapid ventricular rate. She was placed on a Cardizem drip, and transferred to the first floor. Patient reported that she had missed several doses of her Cardizem and sotalol, secondary to stress with a in the family. While on the Cardizem she converted to sinus rhythm. Her sotalol and Cardizem were restarted. It was thought the patient could go home with no overall medicine changes as her recurrence of atrial fibrillation was secondary to medical noncompliance with dosing of medication. Physical Exam Narrative: EXAM NARRATIVE: General exam is no apparent distress Cardiovascular regular rate and rhythm without murmur, telemetry demonstrates sinus rhythm today. Lungs clear Abdomen is soft with positive bowel sounds Extremities no cyanosis clubbing or edema Discharge Data Data Completed and Pending: Completed Studies During Hospitalization Category Date Time Status XR chest 1V eyad ble [id number] Stat Exams 07/24/20 23:03 Completed Pending at discharge Category Date Time Status Basic Metabolic P jeffery AM LABS Lab 07/26/20 04:00 Ordered Complete Blood Co unt w/Auto AM LABS Lab 07/26/20 04:00 Ordered Magnesium AM LABS Lab 07/26/20 04:00 Ordered Thyroid Stimulati ng Hormone AM LABS Lab 07/26/20 04:00 Ordered Labs from last 24 hours 07/25/20 07/25/20 07/25/20 06:16 05:00 05:00 WBC 7.2 RBC 5.17 Hgb 15.1 Hct 45.7 MCV 88.4 MCH 29.2 MCHC 33.0 RDW 13.2 Plt Count 165 MPV 10.8 H Neut % (Auto) 56.1 Lymph % (Auto) 26.1 Frederick % (Auto) 10.5 Eos % (Auto) 6.4 Baso % (Auto) 0.6 Neut # (Auto) 4.02 Lymph # (Auto) 1.9 Frederick # (Auto) 0.8 Eos # (Auto) 0.5 Baso # (Auto) 0.0 Nucleated RBC % (a uto) 0 Nucleated RBCs # 0.0 PT INR Sodium 139 Potassium 4.2 Chloride 105 Carbon Dioxide 21 L Anion Gap 17.2 BUN 11 Creatinine 0.8 GFR Calculation 72.7 L Glucose 159 H POC Glucose 155 Calculated Osmolal ity 291 Calcium 8.9 Magnesium 2.1 Total Bilirubin AST ALT Alkaline Phosphata se Troponin T Baselin e Troponin T 120 Min [place] Delta Troponin T Troponin T Hi Sens 6Hr Troponin T Hi Sens 6Hr Delta Total Protein Albumin Globulin TSH 2.36 Free T4 Urine Color Urine Appearance Urine pH Ur Specific Gravit y Urine Protein Urine Glucose (UA) Urine Ketones Urine Blood Urine Nitrate Urine Bilirubin Urine Urobilinogen Ur Leukocyte Abida ase 07/25/20 07/25/20 07/25/20 05:00 01:27 01:06 WBC RBC Hgb Hct MCV MCH MCHC RDW Plt Count MPV Neut % (Auto) Lymph % (Auto) Frederick % (Auto) Eos % (Auto) Baso % (Auto) Neut # (Auto) Lymph # (Auto) Frederick # (Auto) Eos # (Auto) Baso # (Auto) Nucleated RBC % (a uto) Nucleated RBCs # PT INR Sodium Potassium Chloride Carbon Dioxide Anion Gap BUN Creatinine GFR Calculation Glucose POC Glucose Calculated Osmolal ity Calcium Magnesium Total Bilirubin AST ALT Alkaline Phosphata se Troponin T Baselin e Troponin T 120 Min [place] cliff 62.08 H Delta Troponin T 14.08 H* Troponin T Hi Sens 6Hr 65.48 H Troponin T Hi Sens 6Hr Delta 17.48 H* Total Protein Albumin Globulin TSH Free T4 Urine Color Straw Urine Appearance Clear Urine pH 6 Ur Specific Gravit y 1.005 Urine Protein Neg Urine Glucose (UA) Trace H Urine Ketones Negative Urine Blood Neg Urine Nitrate Negative Urine Bilirubin Neg Urine Urobilinogen Norm Ur Leukocyte Abida ase Negative 07/24/20 07/24/20 07/24/20 23:29 23:29 23:29 WBC RBC Hgb Hct MCV MCH MCHC RDW Plt Count MPV Neut % (Auto) Lymph % (Auto) Frederick % (Auto) Eos % (Auto) Baso % (Auto) Neut # (Auto) Lymph # (Auto) Frederick # (Auto) Eos # (Auto) Baso # (Auto) Nucleated RBC % (a uto) Nucleated RBCs # PT 12.90 INR 0.94 Sodium 134 L Potassium 4.1 Chloride 99 Carbon Dioxide 21 L Anion Gap 18.1 BUN 14 Creatinine 0.9 GFR Calculation 63.4 L Glucose 261 H POC Glucose Calculated Osmolal ity 288 Calcium 9.6 Magnesium 1.6 L Total Bilirubin 0.3 AST 28 ALT 35 H Alkaline Phosphata se 137 H Troponin T Baselin e 48 H Troponin T 120 Min [place] Delta Troponin T Troponin T Hi Sens 6Hr Troponin T Hi Sens 6Hr Delta Total Protein 6.9 Albumin 4.6 Globulin 2.3 TSH 2.73 Free T4 1.58 Urine Color Urine Appearance Urine pH Ur Specific Gravit y Urine Protein Urine Glucose (UA) Urine Ketones Urine Blood Urine Nitrate Urine Bilirubin Urine Urobilinogen Ur Leukocyte Abida ase 07/24/20 23:29 WBC 8.9 RBC 5.60 H Hgb 16.4 H Hct 49.4 H MCV 88.2 MCH 29.3 MCHC 33.2 RDW 13.1 Plt Count 204 MPV 10.9 H Neut % (Auto) 59.4 Lymph % (Auto) 24.2 Frederick % (Auto) 9.0 Eos % (Auto) 6.3 Baso % (Auto) 0.6 Neut # (Auto) 5.26 Lymph # (Auto) 2.1 Frederick # (Auto) 0.8 Eos # (Auto) 0.6 Baso # (Auto) 0.1 Nucleated RBC % (a uto) 0 Nucleated RBCs # 0.0 PT INR Sodium Potassium Chloride Carbon Dioxide Anion Gap BUN Creatinine GFR Calculation Glucose POC Glucose Calculated Osmolal ity Calcium Magnesium Total Bilirubin AST ALT Alkaline Phosphata se Troponin T Baselin e Troponin T 120 Min [place] Delta Troponin T Troponin T Hi Sens 6Hr Troponin T Hi Sens 6Hr Delta Total Protein Albumin Globulin TSH Free T4 Urine Color Urine Appearance Urine pH Ur Specific Gravit y Urine Protein Urine Glucose (UA) Urine Ketones Urine Blood Urine Nitrate Urine Bilirubin Urine Urobilinogen Ur Leukocyte Abida ase Vitals: Last Vital Signs Temp 97.6 F 07/25/20 07:11 Pulse 70 07/25/20 07:11 Resp 16 07/25/20 07:11 BP 141/73 07/25/20 07:11 Pulse Ox 92 07/25/20 07:11 Discharge Plan Discharge Patient Disposition: Home Condition: Stable Prescriptions: Continued levothyroxine 175 mcg tablet 175 mcg PO DAILY RF: 0 potassium chloride 10 mEq capsule, extended release 10 meq PO DAILY RF: 0 sotalol 80 mg tablet 80 mg PO BID RF: 0 simvastatin 40 mg tablet 40 mg PO QPM RF: 0 pantoprazole 40 mg tablet,delayed release (DR/EC) 40 mg PO DAILY RF: 0 lisinopril 10 mg tablet 10 mg PO DAILY RF: 0 diltiazem HCl 120 mg capsule,extended release 24hr 120 mg PO DAILY RF: 0 montelukast 10 mg tablet 10 mg PO DAILY RF: 0 glipizide 5 mg tablet 5 mg PO DAILY RF: 0 Changed Eliquis 5 mg tablet 5 mg PO BID Qty: 0 RF: 0 Discharge Orders: Discharge Order (Routine); Ordered 07/25/20 Ordered By: Stephen Wright Referrals: Nirmal Hines [Primary Care Provider] - 4-7 days Discharge Diet: Cardiac and Diabetic Discharge Activity: Increase activity as tolerated Patient Instructions: Coronary Artery Disease (DC), Atrial Fibrillation (DC), Hypertension (DC), Hyperlipidemia (DC), COPD Stoplight Activity Restrictions/Additional Instructions: Take all medicine as prescribed Keep regular follow-up with your mortgage loan officer Discharge Attestations Time Spent in Discharge Care*: greater than 30 min Quality Metrics Clinical Quality Measures During this hospital stay, did patient experience: None Coding Level of Care Code Acute Inspector [employer] for Tomg Fwd Diagnoses Atrial fibrillation with rapid ventricular response I48.91 Hypertension I10 Hyperlipidemia E78.5 Coronary artery disease I25.10 History of COPD Z87.09
--- NOTE | 2020-07-25 09:55 | PC.NURSE ---
Home med Pt eliquis is listed as daily per doctor. Verified with pt and she is unsure if she takes it daily or twice daily. At first response she said it was daily then she stated she might confuse it with other meds. [place] [facility] [place] as 5 mg twice a day. But pt has not fill this med since February. Pt stated she goes through [facility] pharmacy for her meds. She stated, the [employer] delivery might got delayed. Informed doctor on this. Medication adherence reinforced to pt to take her blood thinner twice a day as directed.
[2020-07-25 11:17] LABS: Glucose Point of Care 121 mg/dL (70-110)
--- NOTE | 2020-07-25 11:24 | PC.NURSE ---
Pt stated she does not have enough Betapace to get through next week She has one for tonight and tomorrow. Notified Dr. Wright and he said [place] [facility] [place]. Verified w/ pt's if she has enough Eliquis (apixaban), w/c is her blood thinner. and she stated she has enough. Verified if pt has enough Cardizem and other meds and she stated, she has enough of them as well. She stated, I get my meds through [facility] pharmacy. I don't know what happened. It might be the [employer] delivery is delayed. Verified to pt if she has anything else that i can help with. Pt denies any more needs or concerns.
--- NOTE | 2020-07-25 11:54 | PC.CHAP ---
Pastoral Care Encounter/Spiritual Assessment Type of Contact [] Declined mailroom supervisor visit [] Patient/Family/Request visit [] Outpatient visit [] Follow-up visit [] Physician referral [] Code/Alert [X] Routine visit [] Staff referral [] Actively dying [] Patient sleeping [] Family support [] [] Out of room [] Palliative care [] [] Receiving care in room [] Pre-surgical visit [] Trauma [] Long length of stay [] ICU visit [] Other: Relational/Emotional Strength [X] Patient feels connected with others/family/visitors/staff [] Distress [] Loneliness/isolation [] Abandonment Spirituality of Patient [X] Person of Kelly [] Attends Moravian of their Kelly [X] Believes in Prayer [] Reads Bible or Christianity materials [] There are Spiritual issues to be addressed Cement Handler Interventions [X] Prayer [X] Active listening [X] Non-anxious presence [X] Spiritual/emotional support [] Crisis/trauma care [] Spiritual counseling [X] Bereavement support [] Provided bereavement packet [] Provided Bible/devotional materials [] Provided toy/stuffed animal, coloring book to patient or family member [] Provided Communion [] Anointing/[place] [] Salvation [X] Completed spiritual assessment [] Other: Impact on Illness or Injury [] Angry [] Fearful [] Anxious [] Often cries [] Exhaustion [] Unable to work [] Unable to attend hinduism [] Unable to walk/stand [] Unable to read [] Unable to drive [] Unable to eat/drink [] Unable to sleep [] Unable to be with family [] Patient intubated [] Other: Summary: Pt has a hisotry of afib; this was not her first admission or experience with afib. She will be discharged today. 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 Family is unwilling to learn if nurses or mailroom supervisor was with her [id number] at his . Also, he recently switched his burial plans, which has the family confused. This is a distressing time for the family. They hope to have his burial/memorial service on Nineveh's Day. Time spent with patient: 20 mins
--- NOTE | 2020-07-27 17:18 | PC.RESP ---
Smoking Cessation and Pulmonary Rehab packets sent to patient.
== END 2020-07-25 12:04 | disposition home or self-care (01) ==
LOC: ER 07-25 02:42 → CSU 07-25 03:03
PROVIDERS: Emergency Medicine; Admitting Provider Hospitalist; Visit Provider Internal Medicine
DX: I48.0 Paroxysmal atrial fibrillation (principal); I10 Essential (primary) hypertension; E78.5 Hyperlipidemia, unspecified; I25.10 Atherosclerotic heart disease of native coronary artery without angina pectoris; Z87.09 Personal history of other diseases of the respiratory system; E03.9 Hypothyroidism, unspecified; Z79.01 Long term (current) use of anticoagulants
CPT/HCPCS: 12345; 36415; 36416; 71045; 80048; 80053; 81003; 82962; 83735; 84439; 84443; 84484; 85025; 85610; 93005; 96361; 96365; 96366; 96372; 96375; 99284; 99285; G0378; J1815; J3475; J3490; J7030

== ENCOUNTER 2020-07-31 06:00 | Outpatient (RCR) | payer MEDICARE, SELFPAY | END 2020-08-24 23:59 | disposition home or self-care (01) | LOC: SPT 06:00 | DX: M54.42 Lumbago with sciatica, left side (principal) | CPT/HCPCS: 97110; 97162 ==

== ENCOUNTER 2020-08-25 06:00 | Outpatient (RCR) | payer MEDICARE, SELFPAY | END 2020-09-24 23:59 | disposition home or self-care (01) | LOC: SPT 06:00 | DX: M54.42 Lumbago with sciatica, left side (principal) | CPT/HCPCS: 97110 ==

== ENCOUNTER 2020-11-23 20:18 | Observation (INO) | payer MEDICARE, SELFPAY ==
--- NOTE | 2020-11-23 20:37 | XRR_ITS ---
PROCEDURE INFORMATION: Exam: XR Chest Exam date and time: 11/23/2020 9:01 PM Age: 60 years old Clinical indication: Chest pain; Type not specified; Patient HX: Afib; Additional info: Cp TECHNIQUE: Imaging protocol: XR of the chest Views: 1 view. COMPARISON: CR XR chest 1V portable [id number] 07/24/2020 11:14 PM FINDINGS: Lungs: Hyperinflation and interstitial prominence. Pleural spaces: No pleural effusion. Heart/Mediastinum: Borderline cardiomegaly. Bones/joints: Degenerative change. When correlating with the previous study, no significant interval changes are present. XR/XR chest 1V portable [id number] IMPRESSION: Stable appearance of the chest, not significantly changed from 07/24/20.
--- NOTE | 2020-11-23 20:38 | ECG_ITS ---
[facility] Test Date: 2020-11-23 Pat Name: Trena Segura Department: Room: Gender: Female Low Pressure Firer: ANDREIA : 1960 Requested By: Steph Broderick Order Number: [id number] John MD: ABDI AMBROSE Measurements Intervals [place] Rate: 145 P: [place]: QRS: -73 QRSD: 130 T: 109 QT: 320 QTc: 499 Interpretive Statements ATRIAL FIBRILLATION WITH RAPID VENTRICULAR RESPONSE WITH ABERRANT CONDUCTION OR VENTRICULAR PREMATURE COMPLEXES RIGHT BUNDLE BRANCH BLOCK [120+ ms QRS DURATION, UPRIGHT V1, 40+ ms S IN I/aVL/V4/V5/V6] LEFT ANTERIOR FASCICULAR BLOCK [QRS AXIS <= -45, QR IN I, RS IN II] VOLTAGE CRITERIA FOR LVH [MEETS CRITERIA IN ONE OF: R(aVL), S(V1), R(V5), R(V5/V6)+S(V1)] Compared to ECG 07/25/2020 05:17:01 Sinus rhythm no longer present ST (T wave) deviation no longer present Myocardial infarct finding no longer present Electronically Signed On 11-24-2020 20:00:15 ACCOUNTS PAYABLE CLERK by ABDI AMBROSE [email or web address]
[2020-11-23 20:41] VITALS: BP 151/110; PULSE 145; RESP 14; TEMP 36.5; O2SAT 96; BMI 39.3
--- NOTE | 2020-11-23 21:18 | W.ED.ARRPALP ---
Documented by User: Sinan Maynard MD 11/29/20 13:37 HPI - Arrhythmia/Palpitations General: Chief Complaint: Arrhythmia/Palpitations Stated Complaint: afib Time Seen by Provider: 11/23/20 20:59 History of Present Illness: HPI narrative: The patient is a 60-year-old female with past medical history of atrial fibrillation on Eliquis who comes to the ER complaining of palpitations. Heart rate noted to be 145 on arrival. Denies chest pain and shortness of breath. Admits palpitations. She was given 10 IV of Cardizem and cardioverted to the 80s Associated symptoms: Deny anxiety Review of Systems General: Reports: 10 or more systems reviewed and unremarkable except in HPI and below Const: Denies: fatigue Eyes: Denies: change in vision, blurry vision or eye redness ENMT: Denies: throat pain, swelling of lips/tongue, ear or mastoid pain or nasal congestion Card: Reports: palpitations; Denies: chest pain, irregular heart rhythm, edema, dyspnea on exertion or orthopnea Resp: Denies: dyspnea, productive cough or non-productive cough GI: Denies: abdominal pain, diarrhea or GI cramping : Denies: flank pain, difficulty voiding, urinary frequency or urinary urgency Musc: Denies: neck pain, back pain, extremity pain, joint pain, joint redness, limited range of motion or muscle weakness Skin/Breast: Denies: rash, pruritus, erythema, skin pain or skin tenderness Neuro: Denies: headache(s), numbness in extremities, weakness in extremities, sensory changes, difficulty walking, dizziness, confusion or Slurred speech present Psych: Denies: anxiety or depression Endo: Denies: polyuria All/Imm: Denies: urticaria, throat swelling or tongue swelling PFSH ED PFSH: Medical History History of chronic atrial fibrillation History of COPD History of degenerative joint disease History of depression History of diverticulosis History of fibromyalgia History of fracture of lower extremity History of hypertension History of hypothyroidism Hx of atrial flutter Hx of chronic congestive heart failure Hx of colonic polyps Hx of coronary artery disease Hx of diastolic dysfunction Hx of gastroesophageal reflux (GERD) Hx of gout Hx of hemorrhoids Hx of hyperlipidemia Hx of myocardial infarction Hx of nicotine dependence Hx of obesity Hx of osteoporosis Hx of simple renal cyst Hx of sleep apnea Hx of type 2 diabetes mellitus Surgical History History of coronary artery stent placement History of total left knee replacement History of total right knee replacement (TKR) Hx of breast reduction, elective Hx of colonoscopy Hx of coronary angioplasty Hx of esophagogastroduodenoscopy Hx of skin graft Hx of tonsillectomy Family History Other Family history non-contributory Social History Smoking and tobacco status: current every day smoker Physical Exam Const: COMMON NORMALS: no acute distress, average body habitus, patient oriented x3, no limitations, healthy appearing, alert and well nourished GENERAL APPEARANCE: cooperative, comfortable, well kempt and well developed ORIENTATION/CONSCIOUSNESS: Yes awake, Yes oriented to person, Yes oriented to place and Yes oriented to time HENMT: COMMON NORMALS: normocephalic, external ears normal and Normal external nose present HEAD & SCALP: normal to inspection and normocephalic NOSE: Normal external nose present EXTERNAL EAR: Yes external ears normal MOUTH: Normal oral and palatal mucosa present THROAT: posterior oropharynx normal Eye: COMMON NORMALS: Equal, round and reactive pupils present and EOMs intact bilaterally GENERAL EYE: appearance normal, both eyes and all related structures PUPIL: Yes Equal, round and reactive pupils present Neck/C-Spine: COMMON NORMALS: full ROM, no lymphadenopathy, no meningeal signs and no JVD GENERAL: Yes normal visual inspection Lymph: LYMPHATIC: no lymphadenopathy noted Chest: COMMONS NORMALS: normal inspection of the chest and normal palpation of entire chest wall Resp: COMMON NORMALS: normal respiratory effort, No retractions, No use of accessory muscles, clear to auscultation bilaterally and percussion normal EFFORT & INSPECTION: Yes able to speak in complete sentences AUSCULTATION: clear to auscultation bilaterally PERCUSSION: percussion normal Cardio: COMMON NORMALS: no JVD, S1 normal heart sound present, S2 normal heart sound present and Peripheral pulses 2+ throughout RATE: tachycardic RHYTHM: abnormal rhythm irregularly irregular HEART SOUNDS: S1 normal heart sound present and S2 normal heart sound present PERIPHERAL PULSES: Peripheral pulses 2+ throughout OTHER: A. fib RVR rate 110s to 120s. It was 140s on arrival and after Cardizem IV she is in the 80s sinus rhythm. GI: COMMON NORMALS: Normal to inspection, nondistended, normoactive bowel sounds present, Soft to palpation, non-tender and no masses INSPECTION: Yes normal to inspection PALPATION: Yes Soft to palpation : COMMON NORMALS: Yes no CVA tenderness BLADDER/KIDNEY EXAM: Yes no CVA tenderness Back/Pelvis: COMMON NORMALS: no CVA tenderness, thoracic and lumbar spine normal to inspection, no thoracic nor lumbar tenderness and thoraco-lumbar ROM normal Extremity: COMMON NORMALS: normal to inspection, full ROM, capillary refill normal, no joint enlargement and no pedal edema GENERAL: Yes normal exam except as noted Neuro: COMMON NORMALS: patient oriented x3, CN's II-XII intact bilaterally, moves all extremities, no focal motor deficits, no sensory deficits noted and gait normal SENSORIUM/ORIENTATION: Yes alert, Yes oriented to person, Yes oriented to place and Yes oriented to time MENINGEAL SIGNS: Yes no meningeal signs Psych: COMMON NORMALS: mental status grossly normal, Normal thought process present, cooperative, normal affect and speech normal APPEARANCE: Yes well kempt ATTITUDE: Yes calm SPEECH: Yes normal speech THOUGHT PROCESS: Normal thought process present Skin: COMMON NORMALS: no rashes or lesions noted GENERAL SKIN EXAM: no rashes or lesions noted Course Vital Signs: Vital signs: Vital Signs Temperature 97.9 F 11/25/20 11:03 Pulse Rate 52 L 11/25/20 15:12 Respiratory Rate 18 11/25/20 11:03 Blood Pressure 122/68 11/25/20 11:03 Pulse Oximetry 97 11/25/20 11:03 MDM - Arrhythmia/Palpitations MDM Narrative: Medical decision making narrative: Patient came in with atrial fibrillation RVR rate in the 130s. A single dose of 10 mg Cardizem IV immediately converted her and she has been asymptomatic ever since. Troponin normal. Discussed with Dr. Paniagua who recommended increasing Cardizem home dose and following up in the clinic. Discussed this with the patient. ER with worsening symptoms otherwise follow-up in clinic Lab Data: Labs: Lab Results 11/23/20 11/23/20 11/23/20 Range/Units 21:00 21:00 21:00 WBC 8.0 (4.0-10.0) 10^3/ uL RBC 5.42 H (4.1-5.3) 10^6/u L Hgb 15.7 H (11.5-15.3) g/dL Hct 47.1 H (37.0-47.0) % MCV 86.9 (81-99) fL MCH 29.0 (28.0-34.0) pg MCHC 33.3 (30.0-36.0) g/dL RDW 14.3 (12.1-15.1) % Plt Count 196 (130-400) 10^3/c mm MPV 11.7 H (7.4-10.4) fL Neut % (Auto) 60.8 % Lymph % (Auto) 22.8 % [place] % (Auto) 8.5 % Eos % (Auto) 7.1 % Baso % (Auto) 0.6 % Neut # (Auto) 4.86 (1.8-7.7) 10^3/u L Lymph # (Auto) 1.8 (0.8-4.8) 10^3/u L [place] # (Auto) 0.7 (0.2-0.9) 10^3/u L Eos # (Auto) 0.6 (0.0-0.8) 10^3/u L Baso # (Auto) 0.1 (0.0-0.1) 10^3/u L Nucleated RBC % (a uto) 0 % Nucleated RBCs # 0.0 /100WBC D-Dimer (0-0.59) ug/mIFE U Sodium 134 L (136-145) mmol/L Potassium 3.8 (3.5-5.1) mmol/L Chloride 97 L (98-107) mmol/L Carbon Dioxide 23 (22-29) mmol/L Anion Gap 17.8 (5-19) BUN 13 (8-23) mg/dL Creatinine 0.7 (0.5-0.9) mg/dL GFR Calculation 84.8 L (90-130) mL/min Glucose 218 H (65-115) mg/dL Calculated Osmolal ity 285 (285-295) mOsm/k g Calcium 9.5 (8.5-10.5) mg/dL Total Bilirubin 0.4 (0.15-1.2) mg/dL AST 25 (0-32) U/L ALT 26 (0-33) U/L Alkaline Phosphata se 90 (35-105) IU/L Troponin T Baselin e 39 H (0-10) ng/L Troponin T 120 Min grindstone (0-10) ng/L Delta Troponin T (0-10) ABS# NT-Pro-B Natriuret Pep 625 H (0-125) pg/mL Total Protein 7.5 (6.6-8.7) g/dL Albumin 4.4 (3.5-5.2) g/dL Globulin 3.1 (1.3-4.6) g/dL Urine Color (Yellow) Urine Appearance (CLEAR) Urine pH (5-7) Ur Specific Gravit y (1.005-1.030) Urine Protein (Negative) Urine Glucose (UA) (Normal) Urine Ketones (Negative) Urine Blood (Negative) Urine Nitrate (Negative) Urine Bilirubin (Negative) Urine Urobilinogen (Negative) mg/dL Ur Leukocyte Abida ase (Negative) Urine RBC (0-2) /hpf Urine WBC (0-5) /hpf Ur Squamous Epith Cells (0-5) /hpf Amorphous Sediment Urine Bacteria (NONE) /hpf 11/23/20 11/23/20 11/23/20 Range/Units 21:00 21:30 22:58 WBC (4.0-10.0) 10^3/ uL RBC (4.1-5.3) 10^6/u L Hgb (11.5-15.3) g/dL Hct (37.0-47.0) % MCV (81-99) fL MCH (28.0-34.0) pg MCHC (30.0-36.0) g/dL RDW (12.1-15.1) % Plt Count (130-400) 10^3/c mm MPV (7.4-10.4) fL Neut % (Auto) % Lymph % (Auto) % [place] % (Auto) % Eos % (Auto) % Baso % (Auto) % Neut # (Auto) (1.8-7.7) 10^3/u L Lymph # (Auto) (0.8-4.8) 10^3/u L [place] # (Auto) (0.2-0.9) 10^3/u L Eos # (Auto) (0.0-0.8) 10^3/u L Baso # (Auto) (0.0-0.1) 10^3/u L Nucleated RBC % (a uto) % Nucleated RBCs # /100WBC D-Dimer 0.52 (0-0.59) ug/mIFE U Sodium (136-145) mmol/L Potassium (3.5-5.1) mmol/L Chloride (98-107) mmol/L Carbon Dioxide (22-29) mmol/L Anion Gap (5-19) BUN (8-23) mg/dL Creatinine (0.5-0.9) mg/dL GFR Calculation (90-130) mL/min Glucose (65-115) mg/dL Calculated Osmolal ity (285-295) mOsm/k g Calcium (8.5-10.5) mg/dL Total Bilirubin (0.15-1.2) mg/dL AST (0-32) U/L ALT (0-33) U/L Alkaline Phosphata se (35-105) IU/L Troponin T Baselin e (0-10) ng/L Troponin T 120 Min grindstone 61.25 H (0-10) ng/L Delta Troponin T 22.25 H* (0-10) ABS# NT-Pro-B Natriuret Pep (0-125) pg/mL Total Protein (6.6-8.7) g/dL Albumin (3.5-5.2) g/dL Globulin (1.3-4.6) g/dL Urine Color Yellow (Yellow) Urine Appearance Clear (CLEAR) Urine pH 7 (5-7) Ur Specific Gravit y 1.005 (1.005-1.030) Urine Protein 3+ H (Negative) Urine Glucose (UA) 1+ (Normal) Urine Ketones Negative (Negative) Urine Blood Neg (Negative) Urine Nitrate Negative (Negative) Urine Bilirubin Neg (Negative) Urine Urobilinogen Norm (Negative) mg/dL Ur Leukocyte Abida ase Negative (Negative) Urine RBC None (0-2) /hpf Urine WBC 5-10 H (0-5) /hpf Ur Squamous Epith Cells 0-4 H (0-5) /hpf Amorphous Sediment Not Reportable Urine Bacteria Trace (NONE) /hpf Discharge Plan Discharge Patient Disposition: Admitted As Inpatient Admit Provider: Gracia Santiago Clinical Impression: Atrial fibrillation Condition: Stable Discharge Diet: Cardiac Coding Level of Care Code ED Crusher Screen Repairer for Chg Fwd Exam Comprehensive Documented by User: Steph Broderick MD 11/24/20 00:39 HPI - Arrhythmia/Palpitations General: Chief Complaint: Arrhythmia/Palpitations Stated Complaint: afib Time Seen by Provider: 11/23/20 20:59 PFSH ED PFSH: Medical History History of chronic atrial fibrillation History of COPD History of degenerative joint disease History of depression History of diverticulosis History of fibromyalgia History of fracture of lower extremity History of hypertension History of hypothyroidism Hx of atrial flutter Hx of chronic congestive heart failure Hx of colonic polyps Hx of coronary artery disease Hx of diastolic dysfunction Hx of gastroesophageal reflux (GERD) Hx of gout Hx of hemorrhoids Hx of hyperlipidemia Hx of myocardial infarction Hx of nicotine dependence Hx of obesity Hx of osteoporosis Hx of simple renal cyst Hx of sleep apnea Hx of type 2 diabetes mellitus Surgical History History of coronary artery stent placement History of total left knee replacement History of total right knee replacement (TKR) Hx of breast reduction, elective Hx of colonoscopy Hx of coronary angioplasty Hx of esophagogastroduodenoscopy Hx of skin graft Hx of tonsillectomy Family History Other Family history non-contributory Social History Smoking and tobacco status: current every day smoker Course Vital Signs: Vital signs: Vital Signs Temperature 97.9 F 11/25/20 11:03 Pulse Rate 52 L 11/25/20 15:12 Respiratory Rate 18 11/25/20 11:03 Blood Pressure 122/68 11/25/20 11:03 Pulse Oximetry 97 11/25/20 11:03 MDM - Arrhythmia/Palpitations MDM Narrative: Medical decision making narrative: Patient's 2-hour troponin came back elevated at 22. This could be from her A. fib. Spoke to hospitalist will admit for observation to continue to follow her troponin and her pain. Lab Data: Labs: Lab Results 11/23/20 11/23/20 11/23/20 Range/Units 21:00 21:00 21:00 WBC 8.0 (4.0-10.0) 10^3/ uL RBC 5.42 H (4.1-5.3) 10^6/u L Hgb 15.7 H (11.5-15.3) g/dL Hct 47.1 H (37.0-47.0) % MCV 86.9 (81-99) fL MCH 29.0 (28.0-34.0) pg MCHC 33.3 (30.0-36.0) g/dL RDW 14.3 (12.1-15.1) % Plt Count 196 (130-400) 10^3/c mm MPV 11.7 H (7.4-10.4) fL Neut % (Auto) 60.8 % Lymph % (Auto) 22.8 % [place] % (Auto) 8.5 % Eos % (Auto) 7.1 % Baso % (Auto) 0.6 % Neut # (Auto) 4.86 (1.8-7.7) 10^3/u L Lymph # (Auto) 1.8 (0.8-4.8) 10^3/u L [place] # (Auto) 0.7 (0.2-0.9) 10^3/u L Eos # (Auto) 0.6 (0.0-0.8) 10^3/u L Baso # (Auto) 0.1 (0.0-0.1) 10^3/u L Nucleated RBC % (a uto) 0 % Nucleated RBCs # 0.0 /100WBC D-Dimer (0-0.59) ug/mIFE U Sodium 134 L (136-145) mmol/L Potassium 3.8 (3.5-5.1) mmol/L Chloride 97 L (98-107) mmol/L Carbon Dioxide 23 (22-29) mmol/L Anion Gap 17.8 (5-19) BUN 13 (8-23) mg/dL Creatinine 0.7 (0.5-0.9) mg/dL GFR Calculation 84.8 L (90-130) mL/min Glucose 218 H (65-115) mg/dL Calculated Osmolal ity 285 (285-295) mOsm/k g Calcium 9.5 (8.5-10.5) mg/dL Total Bilirubin 0.4 (0.15-1.2) mg/dL AST 25 (0-32) U/L ALT 26 (0-33) U/L Alkaline Phosphata se 90 (35-105) IU/L Troponin T Baselin e 39 H (0-10) ng/L Troponin T 120 Min grindstone (0-10) ng/L Delta Troponin T (0-10) ABS# NT-Pro-B Natriuret Pep 625 H (0-125) pg/mL Total Protein 7.5 (6.6-8.7) g/dL Albumin 4.4 (3.5-5.2) g/dL Globulin 3.1 (1.3-4.6) g/dL Urine Color (Yellow) Urine Appearance (CLEAR) Urine pH (5-7) Ur Specific Gravit y (1.005-1.030) Urine Protein (Negative) Urine Glucose (UA) (Normal) Urine Ketones (Negative) Urine Blood (Negative) Urine Nitrate (Negative) Urine Bilirubin (Negative) Urine Urobilinogen (Negative) mg/dL Ur Leukocyte Abida ase (Negative) Urine RBC (0-2) /hpf Urine WBC (0-5) /hpf Ur Squamous Epith Cells (0-5) /hpf Amorphous Sediment Urine Bacteria (NONE) /hpf 11/23/20 11/23/20 11/23/20 Range/Units 21:00 21:30 22:58 WBC (4.0-10.0) 10^3/ uL RBC (4.1-5.3) 10^6/u L Hgb (11.5-15.3) g/dL Hct (37.0-47.0) % MCV (81-99) fL MCH (28.0-34.0) pg MCHC (30.0-36.0) g/dL RDW (12.1-15.1) % Plt Count (130-400) 10^3/c mm MPV (7.4-10.4) fL Neut % (Auto) % Lymph % (Auto) % [place] % (Auto) % Eos % (Auto) % Baso % (Auto) % Neut # (Auto) (1.8-7.7) 10^3/u L Lymph # (Auto) (0.8-4.8) 10^3/u L [place] # (Auto) (0.2-0.9) 10^3/u L Eos # (Auto) (0.0-0.8) 10^3/u L Baso # (Auto) (0.0-0.1) 10^3/u L Nucleated RBC % (a uto) % Nucleated RBCs # /100WBC D-Dimer 0.52 (0-0.59) ug/mIFE U Sodium (136-145) mmol/L Potassium (3.5-5.1) mmol/L Chloride (98-107) mmol/L Carbon Dioxide (22-29) mmol/L Anion Gap (5-19) BUN (8-23) mg/dL Creatinine (0.5-0.9) mg/dL GFR Calculation (90-130) mL/min Glucose (65-115) mg/dL Calculated Osmolal ity (285-295) mOsm/k g Calcium (8.5-10.5) mg/dL Total Bilirubin (0.15-1.2) mg/dL AST (0-32) U/L ALT (0-33) U/L Alkaline Phosphata se (35-105) IU/L Troponin T Baselin e (0-10) ng/L Troponin T 120 Min grindstone 61.25 H (0-10) ng/L Delta Troponin T 22.25 H* (0-10) ABS# NT-Pro-B Natriuret Pep (0-125) pg/mL Total Protein (6.6-8.7) g/dL Albumin (3.5-5.2) g/dL Globulin (1.3-4.6) g/dL Urine Color Yellow (Yellow) Urine Appearance Clear (CLEAR) Urine pH 7 (5-7) Ur Specific Gravit y 1.005 (1.005-1.030) Urine Protein 3+ H (Negative) Urine Glucose (UA) 1+ (Normal) Urine Ketones Negative (Negative) Urine Blood Neg (Negative) Urine Nitrate Negative (Negative) Urine Bilirubin Neg (Negative) Urine Urobilinogen Norm (Negative) mg/dL Ur Leukocyte Abida ase Negative (Negative) Urine RBC None (0-2) /hpf Urine WBC 5-10 H (0-5) /hpf Ur Squamous Epith Cells 0-4 H (0-5) /hpf Amorphous Sediment Not Reportable Urine Bacteria Trace (NONE) /hpf Discharge Plan Discharge Patient Disposition: Admitted As Inpatient Admit Provider: Gracia Santiago Clinical Impression: Atrial fibrillation Condition: Stable Discharge Diet: Cardiac Coding Level of Care Code ED Crusher Screen Repairer for Chg Fwd Exam Comprehensive
[2020-11-23 21:21] VITALS: BP 168/85; PULSE 85; RESP 17; O2SAT 94
[2020-11-23 21:24] LABS: Basophils # 0.1 10^3/uL (0.0-0.1); Basophils % 0.6 %; Eosinophils # 0.6 10^3/uL (0.0-0.8); Eosinophils % 7.1 %; Hematocrit 47.1 % (37.0-47.0); Hemoglobin 15.7 g/dL (11.5-15.3); Lymphocytes # 1.8 10^3/uL (0.8-4.8); Lymphocytes % 22.8 %; Mean Corpuscular HGB Conc 33.3 g/dL (30.0-36.0); Mean Corpuscular Volume 86.9 fL (81-99); Mean Platelet Volume 11.7 fL (7.4-10.4); Monocytes # 0.7 10^3/uL (0.2-0.9); Monocytes % 8.5 %; Neutrophils # 4.86 10^3/uL (1.8-7.7); Neutrophils % 60.8 %; Nucleated Red Blood Cells % 0 %; Platelet Count 196 10^3/cmm (130-400); Red Blood Count 5.42 10^6/uL (4.1-5.3); Red Cell Distribution Width 14.3 % (12.1-15.1)
[2020-11-23 21:47] LABS: Troponin(5th) Baseline 39 ng/L (0-10)
[2020-11-23 21:54] LABS: Alanine Aminotransferase 26 U/L (0-33); Albumin Level 4.4 g/dL (3.5-5.2); Alkaline Phosphatase 90 IU/L (35-105); Aspartate Amino Transferase 25 U/L (0-32); Blood Urea Nitrogen 13 mg/dL (8-23); Calcium 9.5 mg/dL (8.5-10.5); Carbon Dioxide 23 mmol/L (22-29); Chloride 97 mmol/L (98-107); Globulin 3.1 g/dL (1.3-4.6); Glomerular Filtration Rate 84.8 mL/min (90-130); Glucose 218 mg/dL (65-115); NT Pro B Type Natriuretic Pept 625 pg/mL (0-125); Osmolality Calculated 285 mOsm/kg (285-295); Sodium 134 mmol/L (136-145); Total Bilirubin 0.4 mg/dL (0.15-1.2); Total Protein 7.5 g/dL (6.6-8.7)
[2020-11-23 22:01] LABS: Anion Gap 17.8 (5-19); Potassium 3.8 mmol/L (3.5-5.1)
[2020-11-23 22:13] LABS: D Dimer 0.52 ug/mIFEU (0-0.59)
[2020-11-23 22:24] LABS: Add Urine Microscopic? YES; Bilirubin Urine Neg (Negative); Blood Urine Neg (Negative); Glucose Urine UA 1+ (Normal); Ketones Urine Negative (Negative); Leukocyte Esterase Urine Negative (Negative); Nitrate Urine Negative (Negative); Protein Urine 3+ (Negative); Specific Gravity, Urine 1.005 (1.005-1.030); Urine Appearance Clear (CLEAR); Urine Color Yellow (Yellow); Urobilinogen Urine Norm (Negative); pH Urine 7 (5-7)
[2020-11-23 22:29] LABS: Bacteria Urine TRACE /hpf; Squamous Epithelial Cell Urine 0-4 /hpf (0-5)
[2020-11-23 22:30] LABS: Add Urine Culture? No
--- NOTE | 2020-11-23 22:38 | ECG_ITS ---
[facility] Test Date: 2020-11-23 Pat Name: Trena Segura Department: Room: Gender: Female Services Delivery Driver: : 1960 Requested By: Steph Broderick Order Number: [id number] John MD: ABDI AMBROSE Measurements Intervals [place] Rate: 69 P: 74 [place]: 133 QRS: -68 QRSD: 125 T: 90 QT: 438 QTc: 472 Interpretive Statements SINUS RHYTHM RIGHT BUNDLE BRANCH BLOCK [120+ ms QRS DURATION, UPRIGHT V1, 40+ ms S IN I/aVL/V4/V5/V6] LEFT ANTERIOR FASCICULAR BLOCK [QRS AXIS <= -45, QR IN I, RS IN II] LEFT VENTRICULAR HYPERTROPHY AND ST-T CHANGE [VOLTAGE CRITERIA PLUS ST/T ABNORMALITY] POSSIBLE SEPTAL MYOCARDIAL INFARCTION , OF INDETERMINATE AGE [30 ms Q WAVE IN V1/V2] Compared to ECG 11/23/2020 20:37:48 ST (T wave) deviation now present Myocardial infarct finding now present Atrial fibrillation no longer present Electronically Signed On 11-24-2020 20:03:03 OFFICE SERVICES ASSISTANT by ABDI AMBROSE [email or web address]
[2020-11-24] VITALS (13 sets, daily range): BP systolic 109–138; BP diastolic 55–73; PULSE 49–64; RESP 16–19; TEMP 35.8–36.7; O2SAT 94–97
[2020-11-24 00:12] LABS: Troponin 5 2HR 61.25 ng/L (0-10)
[2020-11-24 00:14] LABS: Troponin 5 2HR Delta 22.25 ABS# (0-10)
--- NOTE | 2020-11-24 00:38 | P.HP_ITS ---
Providers/Chief Complaint Primary Care Provider: Nirmal Hines Chief Complaint: afib History of Present Illness Trena Segura is a 60 year old female who has history of chronic atrial fibrillation with RVR, chronic anticoagulation with Eliquis presented today with chief complaint of palpitations. On arrival her heart rate was 145, she received 10 mg of IV Cardizem which converted her rhythm to sinus and heart rate in 80s. She was about to be discharged from the ER when she started complaining of chest discomfort, her EKG showing LVH, left anterior fascicle block with ST changes related to that, delta troponin 22 hence decision was made to observe her overnight. Patient is stating that around evening she started experiencing palpitations associated with chest heaviness, it lasted until she came to the hospital and received IV Cardizem. After control of heart rate her symptoms resolved. At the time my evaluation her heart rate was fluctuating between 57-62, normal blood pressure, she was not complaining of any active chest pain shortness of breath abdominal pain, fever, headache or palpitations. Telemetry was showing normal sinus rhythm. Of note, recently her right of way agent recommended increasing her Cardizem dose, at this point she has been taking 120 mg daily. Review of Systems Const: Denies: fever(s), chills or change in weight Eyes: Denies: change in vision ENMT: Denies: throat pain Card: Reports: dyspnea on exertion; Denies: chest pain, pre-syncope or orthopnea Resp: Reports: dyspnea GI: Denies: abdominal pain : Denies: flank pain Musc: Denies: neck pain Skin/Breast: Denies: rash Neuro: Denies: headache(s) Psych: Denies: anxiety Endo: Denies: polyuria Good/Lymph: Denies: easy bruising All/Imm: Denies: urticaria Medications/Allergies Home Medications Medication Instructions Recorded Confirmed Last Taken Type glipizide 5 mg PO DAILY 09/25/19 07/25/20 07/24/20 08:00 History levothyroxine 175 mcg PO DAILY 09/25/19 07/25/20 07/24/20 07:00 History lisinopril 10 mg PO DAILY 09/25/19 07/25/20 07/24/20 08:00 History montelukast 10 mg PO DAILY 09/25/19 07/25/20 07/24/20 08:00 History pantoprazole 40 mg PO DAILY 09/25/19 07/25/20 07/24/20 08:00 History potassium chloride 10 meq PO DAILY 09/25/19 07/25/20 07/24/20 08:00 History simvastatin 40 mg PO QPM 09/25/19 07/25/20 07/24/20 21:00 History Eliquis 5 mg PO BID #0 tab 07/25/20 07/25/20 07/24/20 08:00 Rx sotalol 80 mg tablet 80 mg PO BID #180 tab 07/27/20 Unknown Rx diltiazem HCl 180 mg PO DAILY #14 cap 11/23/20 Unknown Rx Allergies Allergy/AdvReac Type Severity Reaction Status Date / Time latex Allergy Unknown Unknown Verified 07/25/20 04:34 Penicillins Allergy Unknown Unknown Verified 07/25/20 04:34 adhesive tape Allergy RASH Verified 07/25/20 04:34 PFSH Acute PFSH: Medical History History of chronic atrial fibrillation History of COPD History of degenerative joint disease History of depression History of diverticulosis History of fibromyalgia History of fracture of lower extremity History of hypertension History of hypothyroidism Hx of atrial flutter Hx of chronic congestive heart failure Hx of colonic polyps Hx of coronary artery disease Hx of diastolic dysfunction Hx of gastroesophageal reflux (GERD) Hx of gout Hx of hemorrhoids Hx of hyperlipidemia Hx of myocardial infarction Hx of nicotine dependence Hx of obesity Hx of osteoporosis Hx of simple renal cyst Hx of sleep apnea Hx of type 2 diabetes mellitus Surgical History History of coronary artery stent placement History of total left knee replacement History of total right knee replacement (TKR) Hx of breast reduction, elective Hx of colonoscopy Hx of coronary angioplasty Hx of esophagogastroduodenoscopy Hx of skin graft Hx of tonsillectomy Family History Other Family history non-contributory Social History Smoking and tobacco status: current every day smoker Vitals/I&O/Wt Last Vital Signs Temp 97.7 F 11/23/20 20:41 Pulse 64 11/24/20 00:21 Resp 19 H 11/24/20 00:21 BP 133/68 11/24/20 00:21 Pulse Ox 95 11/24/20 00:21 Weight last 48 hrs Weight 97.522 kg Physical Exam Narrative: EXAM NARRATIVE: Middle-age female currently saturating well on room air laying comfortably in her bed appears stated age no signs of heart failure S1, S2 sinus rhythm no sign of heart murmur or failure Abdomen soft nontender bowel sounds present Neurologically no focal deficit appreciated Awake alert oriented x3 GCS 15 Abdomen soft central obesity nontender Low symmetry no edema gangrene ulcer No joint pain or swelling No ischemia gangrene ulcer of lower extremities Appropriate mood and affect EOMI, PERRLA Data : 11/23/20 21:00 11/23/20 21:00 A&P Assessment and plan (1) Atrial fibrillation with RVR: A. fib RVR improved after getting 10 mg IV push of Cardizem Continue diltiazem 120 mg along with sotalol current heart rate sinus rhythm fluctuating between 57-65, normal blood pressure no chest pain shortness of breath headache or confusion Status: Acute (2) Atypical chest pain: No active chest pain, her discomfort was related to palpitations which has resolved, delta troponin noted, EKG showing nonspecific ST changes, currently she is in sinus rhythm, Overnight monitoring because of significant delta troponin Hemodynamically stable I do believe her delta troponin secondary to tachyarrhythmia however she has history of coronary disease with stent Status: Acute Additional A&P Information Cardiac/consistent carb diet Hypothyroidism continue levothyroxine dosage, will request TSH and mag level Sliding scale Full code DVT prophylaxis not indicated currently on Eliquis Attestations Medical Necessity Statement*: Anticipating discharge in less than 48 hours overnight monitoring needed because of delta troponin with history of coronary disease and A. fib RVR Time Spent in Patient Care: (>than 50% of time spent in counselling and/or direct pt care on unit) . 30mins Coding Level of Care Code Acute Staff Radiographer for Chg Fwd Diagnoses Atrial fibrillation with RVR I48.91 Atypical chest pain R07.89
[2020-11-24 02:16] LABS: Magnesium 1.6 mg/dL (1.7-2.3); Thyroid Stimulating Hormone 6.03 uIU/mL (0.27-4.20)
--- NOTE | 2020-11-24 02:38 | ECG_ITS ---
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 Head: : 1960 Requested By: Steph Broderick Order Number: [id number] Reading MD: ABDI AMBROSE Measurements Intervals [place] Rate: 66 P: 81 WI: 139 QRS: -72 QRSD: 127 T: 55 QT: 467 QTc: 493 Interpretive Statements SINUS RHYTHM WITH FREQUENT SUPRAVENTRICULAR PREMATURE COMPLEXES RIGHT BUNDLE BRANCH BLOCK [120+ ms QRS DURATION, UPRIGHT V1, 40+ ms S IN I/aVL/V4/V5/V6] LEFT ANTERIOR FASCICULAR BLOCK [QRS AXIS <= -45, QR IN I, RS IN II] LEFT VENTRICULAR HYPERTROPHY AND ST-T CHANGE [VOLTAGE CRITERIA PLUS ST/T ABNORMALITY] POSSIBLE SEPTAL MYOCARDIAL INFARCTION , PROBABLY OLD [30 ms Q WAVE IN V1/V2] Compared to ECG 11/23/2020 22:58:32 No significant changes Electronically Signed On 11-24-2020 20:02:15 HEAD 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
[2020-11-24 03:36] LABS: Troponin 5 6HR 78.26 ng/L (0-10)
[2020-11-24 03:48] LABS: Troponin 5 6HR Delta 39.26 ng/L (0-12)
[2020-11-24] MEDS: levothyroxine 75 mcg Tablet 150 MCG PO (06:16)
[2020-11-24 06:36] LABS: Glucose Point of Care 172 mg/dL (70-110)
[2020-11-24] MEDS: dilTIAZem ER (24HR) 120 mg Capsule PO (08:36)
[2020-11-24] MEDS: sotalol 80 mg Tablet PO ×2 (08:36→20:26)
[2020-11-24] MEDS: lisinopril 10 mg Tablet PO (08:37)
[2020-11-24] MEDS: apixaban 5 mg Tablet PO ×2 (08:37→20:26)
--- NOTE | 2020-11-24 08:40 | PC.NURSE ---
PATIENT REFUSED INSULIN DUE TO NOT TAKING IT AT HOME. BG 172.
[2020-11-24 10:04] LABS: Glucose Point of Care 216 mg/dL (70-110)
[2020-11-24] MEDS: magnesium sulfate premix 2 GM/50 ML PIGGYBACK IV (12:31)
[2020-11-24 16:44] LABS: Glucose Point of Care 105 mg/dL (70-110)
--- NOTE | 2020-11-24 18:37 | PC.NURSE ---
SHIFT SUMMARY PATIENT HAS DONE WELL TODAY. PATIENT IS ON TELEMETRY AND HAS BEEN BRADYCARDIC THE MAJORITY OF THE DAY. THIS NURSE ADMINISTERED PATIENT'S CARDIAC MEDICATIONS THIS AM. HEART RATE WAS 65 WHEN THESE MEDICATIONS WERE ADMINISTERED. PATIENT HAS TRENDED DOWN THROUGHOUT THE DAY INTO THE 40'S. DR. SANTIAGO NOTIFIED. PATIENT'S BP STABLE. CONTINUED TO MONITOR. HEART RATE HAS NOW INCREASED INTO THE 50'S AND 60'S. PATIENT ASYMPTOMATIC.
--- NOTE | 2020-11-24 20:12 | P.CONIM_ITS ---
Providers/Reason For Consult Consulting Physican/Specialty*: TIFFANI Anderson MD/cardiology Reason for Consult*: Patient with atrial fibrillation rapid ventricular rate. Atypical chest pain. Attending Physician: Vasiliy Tarango Primary Care Provider: Nirmal Hines History of Present Illness History of Present Illness Trena Segura is a 60 year old female Meds/Allergies Home Medications and Allergies Home Medications Medication Instructions Recorded Confirmed Last Taken Type glipizide 5 mg PO DAILY 09/25/19 11/24/20 11/23/20 08:00 History levothyroxine 175 mcg PO DAILY 09/25/19 11/24/20 11/23/20 05:00 History lisinopril 10 mg PO DAILY 09/25/19 11/24/20 11/23/20 08:00 History montelukast 10 mg PO DAILY 09/25/19 11/24/20 11/23/20 08:00 History pantoprazole 40 mg PO DAILY 09/25/19 11/24/20 11/23/20 08:00 History potassium chloride 10 meq PO DAILY 09/25/19 11/24/20 11/23/20 08:00 History simvastatin 40 mg PO QPM 09/25/19 11/24/20 11/23/20 20:00 History Eliquis 5 mg PO BID #0 tab 07/25/20 11/24/20 11/23/20 20:00 Rx sotalol 80 mg tablet 80 mg PO BID #180 tab 07/27/20 11/24/20 11/23/20 20:00 Rx diltiazem HCl 180 mg PO DAILY #14 cap 11/23/20 Unknown Rx buspirone 10 mg PO BID 11/24/20 11/24/20 11/23/20 20:00 History calcium PO DAILY 11/24/20 11/23/20 08:00 History cholecalciferol (vitamin D3) 25 mcg PO DAILY 11/24/20 11/24/20 11/23/20 08:00 H istory [Vitamin D3] fluoxetine 10 mg PO DAILY 11/24/20 11/24/20 11/23/20 08:00 History furosemide 20 mg PO QAM 11/24/20 11/24/20 11/23/20 08:00 History ibuprofen 400 mg PO BID 11/24/20 11/24/20 11/23/20 20:00 History zinc 50 mg PO DAILY 11/24/20 11/24/20 11/23/20 08:00 History Allergies Allergy/AdvReac Type Severity Reaction Status Date / Time latex Allergy Unknown Unknown Verified 07/25/20 04:34 Penicillins Allergy Unknown Unknown Verified 07/25/20 04:34 adhesive tape Allergy RASH Verified 07/25/20 04:34 Current Medications Current Medications Generic Name Dose Route Start Last Admin Trade Name Freq PRN Reason Stop Dose Admin Apixaban 5 mg 11/24/20 09:00 11/24/20 08:37 Apixaban 5 Mg Tablet PO 5 mg BID@0900,2100 LARA Administration Insulin Aspart 0 unit 11/24/20 08:00 11/24/20 17:14 Insulin Aspart 100 Unit/1 Ml SUBCUT Not Given WM&BEDTIME LARA Protocol Levothyroxine Sodium 150 mcg 11/24/20 06:00 11/24/20 06:16 Levothyroxine 75 Mcg Tablet PO 150 mcg QAM LARA Administration Lisinopril 10 mg 11/24/20 09:00 11/24/20 08:37 Lisinopril 10 Mg Tablet PO 10 mg DAILY LARA Administration Sotalol HCl 80 mg 11/24/20 09:00 11/24/20 08:36 Sotalol 80 Mg Tablet PO 80 mg BID@0900,2100 LARA Administration PFSH Acute PFSH: Medical History History of chronic atrial fibrillation History of COPD History of degenerative joint disease History of depression History of diverticulosis History of fibromyalgia History of fracture of lower extremity History of hypertension History of hypothyroidism Hx of atrial flutter Hx of chronic congestive heart failure Hx of colonic polyps Hx of coronary artery disease Hx of diastolic dysfunction Hx of gastroesophageal reflux (GERD) Hx of gout Hx of hemorrhoids Hx of hyperlipidemia Hx of myocardial infarction Hx of nicotine dependence Hx of obesity Hx of osteoporosis Hx of simple renal cyst Hx of sleep apnea Hx of type 2 diabetes mellitus Surgical History History of coronary artery stent placement History of total left knee replacement History of total right knee replacement (TKR) Hx of breast reduction, elective Hx of colonoscopy Hx of coronary angioplasty Hx of esophagogastroduodenoscopy Hx of skin graft Hx of tonsillectomy Family History Other Family history non-contributory Social History Smoking and tobacco status: current every day smoker Vitals/I&O/Wt Last Vital Signs Temp 96.4 F L 11/24/20 15:12 Pulse 57 L 11/24/20 15:12 Resp 17 11/24/20 15:12 BP 123/64 11/24/20 15:12 Pulse Ox 96 11/24/20 15:12 11/24/20 11/24/20 11/24/20 06:59 14:59 22:59 Intake Total 410 / 410 Output Total 400 / 400 600 / 600 400 / 1000 Balance -400 / -400 -190 / -190 -400 / -590 Weight last 48 hrs Weight 215 lb Data Labs: Other Labs: Laboratory Last Values WBC 8.0 10^3/uL (4.0- 10.0) 11/23/20 21:00 RBC 5.42 10^6/uL (4.1 -5.3) H 11/23/20 21:00 Hgb 15.7 g/dL (11.5-1 5.3) H 11/23/20 21:00 Hct 47.1 % (37.0-47.0 ) H 11/23/20 21:00 MCV 86.9 fL (81-99) 11/23/20 21:00 MCH 29.0 pg (28.0-34. 0) 11/23/20 21:00 MCHC 33.3 g/dL (30.0-3 6.0) 11/23/20 21:00 RDW 14.3 % (12.1-15.1 ) 11/23/20 21:00 Plt Count 196 10^3/cmm (130 -400) 11/23/20 21:00 MPV 11.7 fL (7.4-10.4 ) H 11/23/20 21:00 Neut % (Auto) 60.8 % 11/23/20 21:00 Lymph % (Auto) 22.8 % 11/23/20 21:00 [place] % (Auto) 8.5 % 11/23/20 21:00 Eos % (Auto) 7.1 % 11/23/20 21:00 Baso % (Auto) 0.6 % 11/23/20 21:00 Neut # (Auto) 4.86 10^3/uL (1.8 -7.7) 11/23/20 21:00 Lymph # (Auto) 1.8 10^3/uL (0.8- 4.8) 11/23/20 21:00 [place] # (Auto) 0.7 10^3/uL (0.2- 0.9) 11/23/20 21:00 Eos # (Auto) 0.6 10^3/uL (0.0- 0.8) 11/23/20 21:00 Baso # (Auto) 0.1 10^3/uL (0.0- 0.1) 11/23/20 21:00 Nucleated RBC % (a uto) 0 % 11/23/20 21:00 Nucleated RBCs # 0.0 /100WBC 11/23/20 21:00 D-Dimer 0.52 ug/mIFEU (0- 0.59) 11/23/20 21:00 Sodium 134 mmol/L (136-1 45) L 11/23/20 21:00 Potassium 3.8 mmol/L (3.5-5 .1) 11/23/20 21:00 Chloride 97 mmol/L (98-107 ) L 11/23/20 21:00 Carbon Dioxide 23 mmol/L (22-29) 11/23/20 21:00 Anion Gap 17.8 (5-19) 11/23/20 21:00 BUN 13 mg/dL (8-23) 11/23/20 21:00 Creatinine 0.7 mg/dL (0.5-0. 9) 11/23/20 21:00 GFR Calculation 84.8 mL/min (90-1 30) L 11/23/20 21:00 Glucose 218 mg/dL (65-115 ) H 11/23/20 21:00 POC Glucose 105 mg/dL (70-110 ) 11/24/20 16:37 Calculated Osmolal ity 285 mOsm/kg (285- 295) 11/23/20 21:00 Calcium 9.5 mg/dL (8.5-10 .5) 11/23/20 21:00 Magnesium 1.6 mg/dL (1.7-2. 3) L 11/24/20 01:43 Total Bilirubin 0.4 mg/dL (0.15-1 .2) 11/23/20 21:00 AST 25 U/L (0-32) 11/23/20 21:00 ALT 26 U/L (0-33) 11/23/20 21:00 Alkaline Phosphata se 90 IU/L (35-105) 11/23/20 21:00 Troponin T Baselin e 39 ng/L (0-10) H 11/23/20 21:00 Troponin T 120 Min livan 61.25 ng/L (0-10) H 11/23/20 22:58 Delta Troponin T 22.25 ABS# (0-10) H* 11/23/20 22:58 Troponin T Hi Sens 6Hr 78.26 ng/L (0-10) H 11/24/20 02:40 Troponin T Hi Sens 6Hr Delta 39.26 ng/L (0-12) H* 11/24/20 02:40 NT-Pro-B Natriuret Pep 625 pg/mL (0-125) H 11/23/20 21:00 Total Protein 7.5 g/dL (6.6-8.7 ) 11/23/20 21:00 Albumin 4.4 g/dL (3.5-5.2 ) 11/23/20 21:00 Globulin 3.1 g/dL (1.3-4.6 ) 11/23/20 21:00 TSH 6.03 uIU/mL (0.27 -4.20) H 11/24/20 01:43 Urine Color Yellow (Yellow) 11/23/20 21:30 Urine Appearance Clear (CLEAR) 11/23/20 21:30 Urine pH 7 (5-7) 11/23/20 21:30 Ur Specific Gravit y 1.005 (1.005-1.0 30) 11/23/20 21:30 Urine Protein 3+ (Negative) H 11/23/20 21:30 Urine Glucose (UA) 1+ (Normal) 11/23/20 21:30 Urine Ketones Negative (Negati ve) 11/23/20 21:30 Urine Blood Neg (Negative) 11/23/20 21:30 Urine Nitrate Negative (Negati ve) 11/23/20 21:30 Urine Bilirubin Neg (Negative) 11/23/20 21:30 Urine Urobilinogen Norm mg/dL (Negat abida) 11/23/20 21:30 Ur Leukocyte Abida ase Negative (Negati ve) 11/23/20 21:30 Urine RBC None /hpf (0-2) 11/23/20 21:30 Urine WBC 5-10 /hpf (0-5) H 11/23/20 21:30 Ur Squamous Epith Cells 0-4 /hpf (0-5) H 11/23/20 21:30 Amorphous Sediment Not Reportable 11/23/20 21:30 Urine Bacteria Trace /hpf (NONE) 11/23/20 21:30 Coding Level of Care Code Acute Buzzsaw Operator Helper for Wendie Mata
[2020-11-24 21:08] LABS: Glucose Point of Care 115 mg/dL (70-110)
--- NOTE | 2020-11-24 21:09 | PM.PN ---
Subjective Subjective: Interval history: This morning her heart rate continue to trend down, down as low as into 40s. She was feeling fatigued, but otherwise denies any lightheadedness, dizziness, chest pain or pressure, or shortness of breath. Vitals/I&O/Wt Last Vital Signs Temp 98.0 F 11/24/20 20:00 Pulse 57 L 11/24/20 20:00 Resp 16 11/24/20 20:00 BP 109/56 11/24/20 20:00 Pulse Ox 97 11/24/20 20:00 11/24/20 11/24/20 11/24/20 06:59 14:59 22:59 Intake Total 410 / 410 Output Total 400 / 400 600 / 600 400 / 1000 Balance -400 / -400 -190 / -190 -400 / -590 Weight last 48 hrs Weight 97.522 kg Physical Exam Const: COMMON NORMALS: no acute distress and patient oriented x3 NUTRITIONAL APPEARANCE: overweight HENMT: COMMON NORMALS: oropharynx normal Neck/C-Spine: COMMON NORMALS: no JVD Resp: COMMON NORMALS: normal respiratory effort and clear to auscultation bilaterally AUSCULTATION: clear to auscultation bilaterally Cardio: COMMON NORMALS: no JVD, regular rhythm, S1 normal heart sound present, S2 normal heart sound present and No murmurs present (Cardio) RHYTHM: regular rhythm HEART SOUNDS: S1 normal heart sound present and S2 normal heart sound present GI: COMMON NORMALS: Normal to inspection, nondistended, normoactive bowel sounds present, Soft to palpation and non-tender PALPATION: Yes Soft to palpation Extremity: COMMON NORMALS: no joint enlargement and no pedal edema Neuro: COMMON NORMALS: patient oriented x3 and moves all extremities Skin: COMMON NORMALS: no rashes or lesions noted GENERAL SKIN EXAM: no rashes or lesions noted Data : 11/23/20 21:00 11/23/20 21:00 A&P Assessment and plan (1) Bradycardia: Heart rates down into the 40s today after receiving her usual dose of medications of Cardizem, sotalol. Last night received 10 mg IV push Cardizem. As far as I can see has not received any additional rate control medications. At this time she is requiring additional adjustment of her medications, so we will transition to inpatient admission. Discussed with her, discussed with cardiology. She did convert to sinus rhythm. Due to bradycardia additional Cardizem was held. Continue sotalol as per cardiology recommendation for maintenance of sinus rhythm. Appreciate cardiology consultation and additional assessment and recommendations. Discussed with her as well or place hypomagnesemia. Also noted mild hypothyroidism with TSH up to 6.03. Discussed increasing levothyroxine dose, normal, she notes that she has missed a few doses of levothyroxine since she has been trying to take it very early in the morning, and sometimes has not started her alarm clock. She requests not to increase losartan dose at this time, she will make a more consistent effort to take levothyroxine daily. Noted troponin elevation. She denies chest pain or pressure. EKG with no suggestion of acute ischemia. Troponin may be elevated secondary to demand ischemia following A. fib with RVR. Given new bradycardia, normal troponin will assess by TTE. Status: Acute (2) Atrial fibrillation with RVR: Converted to sinus bradycardia. A. fib RVR improved after getting 10 mg IV push of Cardizem Status: Acute (3) Atypical chest pain: Appears this was related to A. fib with RVR, with palpitations. Without any chest discomfort during my visit. Does have abnormal troponin. Will additionally assessed by echocardiogram as above. Status: Acute Attestations Medical Necessity Statement*: Admission of over 2 midnights needed for assessment management of episodes of atrial fibrillation with RVR, new bradycardia. Coding Level of Care Code Acute Bead Forming Machine Operator for Wendie Mata Diagnoses Bradycardia R00.1 Atrial fibrillation with RVR I48.91 Atypical chest pain R07.89
[2020-11-24] MEDS: atorvastatin 40 mg Tablet 20 MG PO (22:12)
--- NOTE | 2020-11-24 22:13 | P.CONIM_ITS ---
Providers/Reason For Consult Consulting Physican/Specialty*: Bert Bernabe MD/Cardiology Reason for Consult*: Atrial fibrillation Requesting Physcian: Dr Tarango Attending Physician: Vasiliy Tarango Primary Care Provider: Nirmal Hines History of Present Illness History of Present Illness 60 year old female who has history of chronic atrial fibrillation with RVR, chronic anticoagulation with Eliquis presented to hospital with chief complaint of palpitations. On arrival her heart rate was 145, she received 10 mg of IV Cardizem which converted her rhythm to sinus however she became bradycardic. Heart rates have been in 40s to 50s. She feels fatigued with it. She denies any chest pain. She is on sotalol 80 mg twice daily and Cardizem 120 mg daily at home. Blood pressure is stable now. Review of Systems Const: Denies: fever(s), chills or change in weight Eyes: Denies: change in vision ENMT: Denies: throat pain Card: Reports: dyspnea on exertion; Denies: chest pain, pre-syncope or orthopnea Resp: Reports: dyspnea GI: Denies: abdominal pain : Denies: flank pain Musc: Denies: neck pain Skin/Breast: Denies: rash Neuro: Denies: headache(s) Psych: Denies: anxiety Endo: Denies: polyuria Good/Lymph: Denies: easy bruising All/Imm: Denies: urticaria Meds/Allergies Home Medications and Allergies Home Medications Medication Instructions Recorded Confirmed Last Taken Type glipizide 5 mg PO DAILY@09/25/19 11/25/20 07/24/20 08:00 History levothyroxine 175 mcg PO DAILY@09/25/19 11/25/20 07/24/20 07:00 History lisinopril 10 mg PO DAILY@09/25/19 11/25/20 07/24/20 08:00 History montelukast 10 mg PO DAILY@09/25/19 11/25/20 07/24/20 08:00 History pantoprazole 40 mg PO DAILY@09/25/19 11/25/20 07/24/20 08:00 History potassium chloride 10 meq PO DAILY@09/25/19 11/25/20 07/24/20 08:00 History simvastatin 40 mg PO DAILY@09/25/19 11/25/20 07/24/20 21:00 History Eliquis 5 mg PO BID #0 tab 07/25/20 11/24/20 11/23/20 20:00 Rx buspirone 10 mg PO BID@11/24/20 11/25/20 Unknown History calcium 1 tab PO DAILY@11/24/20 11/25/20 Unknown History cholecalciferol (vitamin D3) 25 mcg PO DAILY@11/24/20 11/25/20 Unknown History [Vitamin D3] fluoxetine 10 mg PO DAILY@11/24/20 11/25/20 Unknown History furosemide 20 mg PO DAILY@11/24/20 11/25/20 Unknown History ibuprofen 400 mg PO BID@11/24/20 11/25/20 Unknown History zinc 50 mg PO DAILY@11/24/20 11/25/20 Unknown History diltiazem HCl 120 mg PO DAILY@11/25/20 11/25/20 Unknown History fluticasone propionate [Flonase] 2 spray INTRANASAL DAILY PRN 11/25/20 11/25/20 Unknown History sotalol 80 mg PO BID@11/25/20 11/25/20 Unknown History Allergies Allergy/AdvReac Type Severity Reaction Status Date / Time latex Allergy Unknown Unknown Verified 11/25/20 09:24 Penicillins Allergy Unknown Unknown Verified 11/25/20 09:24 adhesive tape Allergy RASH Verified 11/25/20 09:24 Current Medications Current Medications Generic Name Dose Route Start Last Admin Trade Name [place] PRN Reason Stop Dose Admin Apixaban 5 mg 11/24/20 09:00 11/24/20 20:26 Apixaban 5 Mg Tablet PO 5 mg BID@0900,2100 LARA Administration Insulin Aspart 0 unit 11/24/20 08:00 11/24/20 21:21 Insulin Aspart 100 Unit/1 Ml SUBCUT Not Given WM&BEDTIME LARA Protocol Levothyroxine Sodium 150 mcg 11/24/20 06:00 11/24/20 06:16 Levothyroxine 75 Mcg Tablet PO 150 mcg QAM LARA Administration Lisinopril 10 mg 11/24/20 09:00 11/24/20 08:37 Lisinopril 10 Mg Tablet PO 10 mg DAILY LARA Administration Sotalol HCl 80 mg 11/24/20 09:00 11/24/20 20:26 Sotalol 80 Mg Tablet PO 80 mg BID@0900,2100 LARA Administration PFSH Acute PFSH: Medical History History of chronic atrial fibrillation History of COPD History of degenerative joint disease History of depression History of diverticulosis History of fibromyalgia History of fracture of lower extremity History of hypertension History of hypothyroidism Hx of atrial flutter Hx of chronic congestive heart failure Hx of colonic polyps Hx of coronary artery disease Hx of diastolic dysfunction Hx of gastroesophageal reflux (GERD) Hx of gout Hx of hemorrhoids Hx of hyperlipidemia Hx of myocardial infarction Hx of nicotine dependence Hx of obesity Hx of osteoporosis Hx of simple renal cyst Hx of sleep apnea Hx of type 2 diabetes mellitus Surgical History History of coronary artery stent placement History of total left knee replacement History of total right knee replacement (TKR) Hx of breast reduction, elective Hx of colonoscopy Hx of coronary angioplasty Hx of esophagogastroduodenoscopy Hx of skin graft Hx of tonsillectomy Family History Other Family history non-contributory Social History Smoking and tobacco status: current every day smoker Vitals/I&O/Wt Last Vital Signs Temp 98.0 F 11/24/20 20:00 Pulse 57 L 11/24/20 20:00 Resp 16 11/24/20 20:00 BP 109/56 11/24/20 20:00 Pulse Ox 97 11/24/20 20:00 11/24/20 11/24/20 11/24/20 06:59 14:59 22:59 Intake Total 410 / 410 Output Total 400 / 400 600 / 600 400 / 1000 Balance -400 / -400 -190 / -190 -400 / -590 Weight last 48 hrs Weight 215 lb Physical Exam Const: COMMON NORMALS: no acute distress and patient oriented x3 NUTRITIONAL APPEARANCE: overweight HENMT: COMMON NORMALS: oropharynx normal Neck/C-Spine: COMMON NORMALS: no JVD Resp: COMMON NORMALS: normal respiratory effort and clear to auscultation bilaterally AUSCULTATION: clear to auscultation bilaterally Cardio: COMMON NORMALS: no JVD, regular rhythm, S1 normal heart sound present, S2 normal heart sound present and No murmurs present (Cardio) RHYTHM: regular rhythm and other (Bradycardic) HEART SOUNDS: S1 normal heart sound present and S2 normal heart sound present GI: COMMON NORMALS: Normal to inspection, nondistended, normoactive bowel sounds present, Soft to palpation and non-tender PALPATION: Yes Soft to palpation Extremity: COMMON NORMALS: no joint enlargement and no pedal edema Neuro: COMMON NORMALS: patient oriented x3 and moves all extremities Skin: COMMON NORMALS: no rashes or lesions noted GENERAL SKIN EXAM: no rashes or lesions noted A&P Assessment and plan (1) Bradycardia: Status: Acute (2) Atrial fibrillation with RVR: Status: Acute (3) Hx of type 2 diabetes mellitus: Status: Acute (4) History of COPD: Status: Acute (5) Hypertension: Status: Acute (6) Atrial fibrillation: Status: Acute Patient presented to the hospital with Shaila calvert with RVR and after receiving IV Cardizem converted to sinus rhythm however is significantly bradycardic with symptoms of fatigue. Continue to monitor on telemetry. Patient will need event monitor as outpatient to assess for tachybradycardia syndrome. Hold sotalol and Cardizem for now as she is significantly bradycardic. Depending on her overnight telemetry and heart rates, we will decide on discharge home medications. Thank you for involving us with care of this patient. We will continue to follow. Please call with questions. Coding Level of Care Code Acute Liquefaction And Regasification Helper for Wendie Fwd Diagnoses Bradycardia R00.1 Atrial fibrillation with RVR I48.91 Hx of type 2 diabetes mellitus Z86.39 History of COPD Z87.09 Hypertension I10 Atrial fibrillation I48.91
[2020-11-25] VITALS (7 sets, daily range): BP systolic 122–144; BP diastolic 56–68; PULSE 52–58; RESP 18; TEMP 36.4–36.6; O2SAT 94–98
[2020-11-25 05:31] LABS: Basophils # 0.1 10^3/uL (0.0-0.1); Basophils % 0.8 %; Eosinophils # 0.5 10^3/uL (0.0-0.8); Eosinophils % 8.6 %; Hematocrit 44.4 % (37.0-47.0); Hemoglobin 14.5 g/dL (11.5-15.3); Lymphocytes # 1.5 10^3/uL (0.8-4.8); Lymphocytes % 25.3 %; Mean Corpuscular HGB Conc 32.7 g/dL (30.0-36.0); Mean Corpuscular Hemoglobin 28.9 pg (28.0-34.0); Mean Corpuscular Volume 88.4 fL (81-99); Mean Platelet Volume 11.2 fL (7.4-10.4); Monocytes # 0.6 10^3/uL (0.2-0.9); Monocytes % 9.6 %; Neutrophils # 3.29 10^3/uL (1.8-7.7); Neutrophils % 55.4 %; Nucleated Red Blood Cells % 0 %; Platelet Count 174 10^3/cmm (130-400); Red Blood Count 5.02 10^6/uL (4.1-5.3); Red Cell Distribution Width 14.3 % (12.1-15.1); White Blood Count 5.9 10^3/uL (4.0-10.0)
[2020-11-25 05:54] LABS: Alanine Aminotransferase 24 U/L (0-33); Alkaline Phosphatase 80 IU/L (35-105); Anion Gap 13.8 (5-19); Aspartate Amino Transferase 25 U/L (0-32); Blood Urea Nitrogen 16 mg/dL (8-23); Calcium 9.2 mg/dL (8.5-10.5); Carbon Dioxide 26 mmol/L (22-29); Chloride 100 mmol/L (98-107); Globulin 2.9 g/dL (1.3-4.6); Glomerular Filtration Rate 72.7 mL/min (90-130); Glucose 141 mg/dL (65-115); Magnesium 1.9 mg/dL (1.7-2.3); Osmolality Calculated 284 mOsm/kg (285-295); Potassium 4.8 mmol/L (3.5-5.1); Sodium 135 mmol/L (136-145); Total Bilirubin 0.4 mg/dL (0.15-1.2); Total Protein 6.9 g/dL (6.6-8.7)
[2020-11-25] MEDS: levothyroxine 75 mcg Tablet 150 MCG PO (06:24)
[2020-11-25 06:55] LABS: Glucose Point of Care 153 mg/dL (70-110)
[2020-11-25] MEDS: lisinopril 10 mg Tablet PO (08:53)
[2020-11-25] MEDS: apixaban 5 mg Tablet PO (08:53)
[2020-11-25] MEDS: aspirin 81 mg EC Tablet PO (08:53)
--- NOTE | 2020-11-25 10:25 | P.PN_ITS ---
Subjective Subjective: Interval history: Patient is doing well. She denies any complaints of chest pain, shortness of breath or palpitations. She did receive sotalol overnight. She has remained bradycardic with heart rates in 40s to 50s. Vitals/I&O/Wt Last Vital Signs Temp 97.6 F 11/25/20 07:13 Pulse 55 L 11/25/20 07:13 Resp 18 11/25/20 07:13 BP 128/68 11/25/20 07:13 Pulse Ox 98 11/25/20 07:13 11/24/20 11/25/20 11/25/20 22:59 06:59 14:59 Intake Total 360 / 770 120 / 120 Output Total 400 / 1000 700 / 700 Balance -40 / -230 -580 / -580 Weight last 48 hrs Weight 215 lb Physical Exam Const: COMMON NORMALS: no acute distress and patient oriented x3 NUTRITIONAL APPEARANCE: overweight HENMT: COMMON NORMALS: oropharynx normal Neck/C-Spine: COMMON NORMALS: no JVD Resp: COMMON NORMALS: normal respiratory effort and clear to auscultation bilaterally AUSCULTATION: clear to auscultation bilaterally Cardio: COMMON NORMALS: no JVD, regular rhythm, S1 normal heart sound present, S2 normal heart sound present and No murmurs present (Cardio) RHYTHM: regular rhythm and other (Bradycardic) HEART SOUNDS: S1 normal heart sound present an d S2 normal heart sound present GI: COMMON NORMALS: Normal to inspection, nondistended, normoactive bowel sounds present, Soft to palpation and non-tender PALPATION: Yes Soft to palpation Extremity: COMMON NORMALS: no joint enlargement and no pedal edema Neuro: COMMON NORMALS: patient oriented x3 and moves all extremities Skin: COMMON NORMALS: no rashes or lesions noted GENERAL SKIN EXAM: no rashes or lesions noted Data : 11/25/20 05:15 11/25/20 05:15 A&P Assessment and plan (1) Bradycardia: Status: Acute (2) Atrial fibrillation with RVR: Status: Acute (3) Hx of type 2 diabetes mellitus: Status: Acute (4) History of COPD: Status: Acute (5) Hypertension: Status: Acute (6) Atrial fibrillation: Status: Acute Patient received sotalol overnight. She is still bradycardic. Will hold sotalol for now. Monitor patient on telemetry for the next few hours. If her heart rate increases to more than 60 bpm, can reinitiate sotalol at a lower dose of 40 mg twice daily but keep holding Cardizem. However if heart rate stays low, will discharge with sotalol and Cardizem held. Patient will need event monitoring as outpatient to assess her heart rates at home. She may have developed tachybrady syndrome and might need a pacemaker in the future. I have counseled patient to monitor her heart rate at home and contact us if becomes tachycardic. We will have close follow-up with cardiology office in 1 week. Thank you for involving us with care of this patient. Please call with questions. Attestations Medical Necessity Statement*: Care expected to cross 2 midnights. Coding Level of Care Code Acute Regional Wildlife Agent for Wendie Mata Diagnoses Bradycardia R00.1 Atrial fibrillation with RVR I48.91 Hx of type 2 diabetes mellitus Z86.39 History of COPD Z87.09 Hypertension I10 Atrial fibrillation I48.91
[2020-11-25 10:41] LABS: Glucose Point of Care 208 mg/dL (70-110)
--- NOTE | 2020-11-25 12:25 | P.DS_ITS ---
Discharge Providers Date of Admission: 11/24/20 01:38 Date of Discharge: November 25, 2020 Attending Provider at Admission: Gracia Santiago MD Attending Provider at Discharge: Vasiliy Tarango Primary Care Provider: Nirmal Hines Diagnoses at Discharge Discharge Diagnosis (1) Bradycardia: Status: Acute (2) Atrial fibrillation with RVR: Status: Acute (3) Hx of type 2 diabetes mellitus: Status: Acute (4) History of COPD: Status: Acute (5) Hypertension: Status: Acute (6) Atrial fibrillation: Status: Acute (7) Hypothyroidism: Status: Acute (8) Hypomagnesemia: Status: Acute Reason for Visit Reason for Visit: afib Hospital Course Hospital Course Very pleasant 60-year-old lady with history of atrial fibrillation treated with sotalol 80 mg twice daily, 24-hour Cardizem 120 mg daily, on Eliquis anticoagulation was admitted for assessment management after presenting with chest discomfort, palpitations, with atrial fibrillation with RVR on presentation, for which she received 10 mg IV Cardizem push, and resumed on her usual medications. Subsequently with noted conversion to sinus bradycardia, and with worsening bradycardia with heart rates down into the 40s the next morning. She was assessed by cardiology. Both Cardizem and sotalol were recommended to be held. Incidentally she was noted hypomagnesemic in hospital which was supplemented, but also found to be hypothyroid with TSH 6.03. Increasing the dose of levothyroxine initially discussed with her, however, she stated that she occasionally missed doses of levothyroxine in the morning due to missed alarms. She asked not to increase the dose of levothyroxine as she will do a better job of taking her levothyroxine daily instead. Her heart rates improved up to mid 50s, and remained stable there. She remains asymptomatic. She has been ambulating. She feels well without any persistent or recurrent chest discomfort. She has had no symptoms of heart failure. She is cleared to return home on cardiology reassessment, and feels she is doing well enough to do so. She is asked to be set up with event monitor at discharge. She is asked to continue to hold both Cardizem and sotalol. She is to continue blood pressure and heart rate monitoring at home. If heart rates persistently increase above 60 she may cautiously resume half dose of sotalol at 40 mg but continue to hold Cardizem. She is asked to come for reassessment with cardiology in office in 1 week. Echocardiogram has also been obtained prior to discharge, with final results pending. Physical Exam Const: COMMON NORMALS: no acute distress and patient oriented x3 NUTRITIONAL APPEARANCE: overweight HENMT: COMMON NORMALS: oropharynx normal Neck/C-Spine: COMMON NORMALS: no JVD Resp: COMMON NORMALS: normal respiratory effort and clear to auscultation bilaterally AUSCULTATION: clear to auscultation bilaterally Cardio: COMMON NORMALS: no JVD, S1 normal heart sound present, S2 normal heart sound present and No murmurs present (Cardio) RATE: bradycardic HEART SOUNDS: S1 normal heart sound present and S2 normal heart sound present GI: COMMON NORMALS: Normal to inspection, nondistended, normoactive bowel sounds present, Soft to palpation and non-tender PALPATION: Yes Soft to palpation Extremity: COMMON NORMALS: no joint enlargement and no pedal edema Neuro: COMMON NORMALS: patient oriented x3 and moves all extremities Skin: COMMON NORMALS: no rashes or lesions noted GENERAL SKIN EXAM: no r ashes or lesions noted Discharge Data Data Completed and Pending: Completed Studies During Hospitalization Category Date Time Status XR chest 1V eyad ble [id number] Stat Exams 11/23/20 20:37 Completed Pending at discharge Category Date Time Status Complete Blood Co unt w/Auto AM LABS Lab 11/26/20 04:00 Ordered Complete Blood Co unt w/Auto AM LABS Lab 11/27/20 04:00 Ordered Comprehensive Met abolic Panel AM LA BS Lab 11/26/20 04:00 Ordered Comprehensive Met abolic Panel AM HUMA BS Lab 11/27/20 04:00 Ordered CV echo wo/w cont rast [id number] Routine Ultrasound 11/25/20 21:15 Taken Labs from last 24 hours 11/25/20 11/25/20 11/25/20 10:22 06:48 05:15 WBC RBC Hgb Hct MCV MCH MCHC RDW Plt Count MPV Neut % (Auto) Lymph % (Auto) [place] % (Auto) Eos % (Auto) Baso % (Auto) Neut # (Auto) Lymph # (Auto) [place] # (Auto) Eos # (Auto) Baso # (Auto) Nucleated RBC % (a uto) Nucleated RBCs # Sodium 135 L Potassium 4.8 Chloride 100 Carbon Dioxide 26 Anion Gap 13.8 BUN 16 Creatinine 0.8 GFR Calculation 72.7 L Glucose 141 H POC Glucose 208 H 153 H Calculated Osmolal ity 284 L Calcium 9.2 Magnesium 1.9 Total Bilirubin 0.4 AST 25 ALT 24 Alkaline Phosphata se 80 Total Protein 6.9 Albumin 4.0 Globulin 2.9 11/25/20 11/24/20 11/24/20 05:15 20:12 16:37 WBC 5.9 RBC 5.02 Hgb 14.5 Hct 44.4 MCV 88.4 MCH 28.9 MCHC 32.7 RDW 14.3 Plt Count 174 MPV 11.2 H Neut % (Auto) 55.4 Lymph % (Auto) 25.3 [place] % (Auto) 9.6 Eos % (Auto) 8.6 Baso % (Auto) 0.8 Neut # (Auto) 3.29 Lymph # (Auto) 1.5 [place] # (Auto) 0.6 Eos # (Auto) 0.5 Baso # (Auto) 0.1 Nucleated RBC % (a uto) 0 Nucleated RBCs # 0.0 Sodium Potassium Chloride Carbon Dioxide Anion Gap BUN Creatinine GFR Calculation Glucose POC Glucose 115 H 105 Calculated Osmolal ity Calcium Magnesium Total Bilirubin AST ALT Alkaline Phosphata se Total Protein Albumin Globulin Vitals: Last Vital Signs Temp 97.9 F 11/25/20 11:03 Pulse 55 L 11/25/20 11:03 Resp 18 11/25/20 11:03 BP 122/68 11/25/20 11:03 Pulse Ox 97 11/25/20 11:03 Discharge Plan Discharge Patient Disposition: Home Condition: Stable Prescriptions: Continued levothyroxine 175 mcg tablet 175 mcg PO DAILY@ RF: 0 potassium chloride 10 mEq capsule, extended release 10 meq PO DAILY@ RF: 0 simvastatin 40 mg tablet 40 mg PO DAILY@ RF: 0 pantoprazole 40 mg tablet,delayed release (DR/EC) 40 mg PO DAILY@ RF: 0 lisinopril 10 mg tablet 10 mg PO DAILY@ RF: 0 montelukast 10 mg tablet 10 mg PO DAILY@ RF: 0 glipizide 5 mg tablet 5 mg PO DAILY@ RF: 0 buspirone 10 mg tablet 10 mg PO BID@ RF: 0 fluoxetine 10 mg Tablet 10 mg PO DAILY@ RF: 0 furosemide 20 mg Tablet 20 mg PO DAILY@ RF: 0 cholecalciferol (vitamin D3) [Vitamin D3] 25 mcg (1,000 unit) Capsule 25 mcg PO DAILY@ RF: 0 ibuprofen 400 mg Tablet 400 mg PO BID@ RF: 0 zinc 50 mg Capsule 50 mg PO DAILY@ RF: 0 calcium 1 tab PO DAILY@ RF: 0 fluticasone propionate 50 mcg/actuation [place],Suspension 2 spray INTRANASAL DAILY PRN (Reason: Allergy Symptoms) RF: 0 Eliquis 5 mg tablet 5 mg PO BID Qty: 0 RF: 0 Discontinued diltiazem HCl 120 mg capsule,extended release 24hr 120 mg PO DAILY RF: 0 diltiazem HCl 120 mg capsule,extended release 24hr 120 mg PO DAILY@ RF: 0 sotalol 80 mg tablet 80 mg PO BID@ RF: 0 Discharge Orders: Discharge Order (Routine); Ordered 11/25/20 Ordered By: Vasiliy Tarango Other Ambulatory Orders: [place] cardiac event monitor (Routine) Timeframe: 1 Day Facility: [facility] - Location: Cardiac Diagnostic Laboratory Ordered By: Vasiliy Tarango Referrals: Bert Bernabe M.D [Physician] - 4-7 days Nirmal Hines [Primary Care Provider] - 4-7 days Discharge Diet: Cardiac Patient Instructions: Bradycardia, Atrial Fibrillation (ED), Hypothyroidism (GEN), Bradycardia (GEN), Hypomagnesemia (GEN), Opioid Safety Activity Restrictions/Additional Instructions: Please hold both Cardizem and sotalol at this time. Monitor your heart rates at home. Please make sure to have heart monitor set up on discharge. If your heart rate increase and persistently stay above 60, cautiously resume 40 mg sotalol twice a day, however, if heart rates decrease into low 50s, or into 40s, discontinue sotalol again. If your heart rates persistently remain low in the 40s despite not take medications, or heart rates increase and stay above 110 persistently even at rest, please contact the cardiology office. If you experience any chest pain, significant of breath, any fainting or other concerning symptoms seek medical attention without delay. Follow-up with cardiology office in 1 week for reassessment, as well as with your primary care doctor. Please make sure to take your thyroid medicine as prescribed, daily, due to noted hypothyroidism while in the hospital which may contribute to slow heart rates, possibly from missed thyroid medicine doses. Please discuss with your primary care doctor to reassess thyroid function in case thyroid function still low requiring increase in thyroid hormone dose. Continue magnesium supplementation. Discussed that she had low magnesium levels in the hospital with your primary doctor. Discharge Attestations Time Spent in Discharge Care*: greater than 30 min Quality Metrics Clinical Quality Measures During this hospital stay, did patient experience: None Coding Level of Care Code Acute [place] Vessel Pilot for Chg Fwd Diagnoses Bradycardia R00.1 Atrial fibrillation with RVR I48.91 Hx of type 2 diabetes mellitus Z86.39 History of COPD Z87.09 Hypertension I10 Atrial fibrillation I48.91 Hypothyroidism E03.9 Hypomagnesemia E83.42
[2020-11-25] MEDS: perflutren protein-a microsphr 0.22 mg/mL SDV 3 mL IV (16:13)
--- NOTE | 2020-11-25 21:15 | USCV_ITS ---
Trena Segura Age: 60 Gender: F : 1960 Exam Date: 11/25/2020 05:48 Ordering Phys: Vasiliy Tarango MD Technologist: Vivienne Anand [place] [facility] [place]: A fib w/ RVR BP: 122 / 56 HR: 48 Rhythm: Sinus Technical Quality: Technically difficult study MEASUREMENTS (Male / Female) Normal Values 2D ECHO LV Diastolic Diameter PLAX 2.5 cm 4.2 - 5.9 / 3.9 - 5.3 cm LV Systolic Diameter PLAX 2.0 cm IVS Diastolic Thickness 1.4 cm 0.6 - 1.0 / 0.6 - 0.9 cm IVS Systolic Thickness 1.8 cm LVPW Diastolic Thickness 2.0 cm 0.6 - 1.0 / 0.6 - 0.9 cm LVPW Systolic Thickness 2.4 cm LVOT Diameter 2.0 cm LV Ejection Fraction 2D Teich 40.6 % LV Ejection Fraction MOD 2C 48.0 % LV Ejection Fraction 2C AL 43.9 % LA Diameter 3.6 cm LA Width 3.7 cm LA Height 2.4 cm RA Width 2.8 cm RA Height 2.6 cm Aorta at Sinotubular Diameter 2.0 cm M-MODE Aortic Annulus Diameter 2.7 cm LA Ao Ratio MM 1.4 DOPPLER AV Peak Velocity 119.0 cm/s LVOT Peak Velocity 100.0 cm/s AV Area Cont Eq vti 3.4 cm squared AV Area Cont Eq pk 2.6 cm squared MV Area PHT 2.8 cm squared Mitral E to A Ratio 4.6 MV E' Velocity 88.5 cm/s Mitral E to MV E' Ratio 13.2 Mitral E to LV E' Lateral Ratio 16.1 Mitral E to LV E' Septal Ratio 11.2 TR Peak Velocity 197.7 cm/s TR Peak Gradient 15.6 mmHg TV Peak E Velocity 77.0 cm/s Right Atrial Pressure 3.0 mmHg Pulmonary Artery Systolic Pressu 18.6 mmHg PV Peak Velocity 95.0 cm/s RV Acceleration Time 0.0 s RV Ejection Time 0.4 s RV AcT/ET 0.1 FINDINGS Left Ventricle Normal left ventricle size and systolic function. Left ventricular ejection fraction is estimated at 65%. No regional wall motion abnormalities. Abnormal diastolic function. Right Ventricle Normal right ventricular size and systolic function. Right Atrium Right atrium not well visualized. Left Atrium Left atrium not well visualized. Probably mildly increased left atrial size. Mitral Valve Moderate mitral annular calcification. Mildly thickened mitral valve. No mitral valve stenosis. Aortic Valve Aortic valve not well visualized. No aortic valve stenosis. No aortic valve regurgitation. Tricuspid Valve Tricuspid valve not well visualized. Trace tricuspid valve regurgitation. Pulmonic Valve Pulmonic valve not well visualized. Pericardium No pericardial effusion. Aorta Aorta not well visualized. CONCLUSIONS 1. This is a technically difficult study. Ultrasound enhancing agent Optison was used. 2. Normal left ventricle size and systolic function. Left ventricular ejection fraction is estimated at 65 %. No regional wall motion abnormalities. Abnormal diastolic function. 3. Normal right ventricular size and systolic function. 4. There may not have been any significant change when compared to old study from 28 August 2018. Yohana Dejesus MD (Electronically Signed) Final Date: 25 November 2020 14:36 S
== END 2020-11-25 15:13 | disposition home or self-care (01) ==
LOC: ER 11-24 00:39 → MEDSURG 11-24 06:41
PROVIDERS: Family Medicine; Admitting Provider Internal Medicine; Emergency Provider Emergency Medicine; Visit Provider Internal Medicine
DX: I48.20 Chronic atrial fibrillation, unspecified (principal); R00.1 Bradycardia, unspecified; Z86.39 Personal history of other endocrine, nutritional and metabolic disease; Z87.09 Personal history of other diseases of the respiratory system; I10 Essential (primary) hypertension; E03.9 Hypothyroidism, unspecified; E83.42 Hypomagnesemia; Z79.01 Long term (current) use of anticoagulants; J44.9 Chronic obstructive pulmonary disease, unspecified; M19.90 Unspecified osteoarthritis, unspecified site; I50.9 Heart failure, unspecified; I25.10 Atherosclerotic heart disease of native coronary artery without angina pectoris; E78.5 Hyperlipidemia, unspecified; I25.2 Old myocardial infarction; Z87.891 Personal history of nicotine dependence
CPT/HCPCS: 36415; 36416; 71045; 80053; 81001; 82962; 83735; 83880; 84443; 84484; 85025; 85378; 93005; 93306; 96365; 96367; 96372; 96375; 99285; C8929; G0378; J1815; J3475; J3490; Q9956

== ENCOUNTER 2021-02-12 08:56 | Outpatient (CLI) | payer MEDICARE, OTHER, SELFPAY ==
--- NOTE | 2021-02-12 09:11 | CT_ITS ---
WS: [id number] CT scan of the abdomen with Oral and IV contrast. Additional two-dimensional coronal and sagittal rec onstruction was performed. 02/12/2021 Clinical Data: ABDOMINAL PAIN Comparison: CT abdomen and pelvis, 04/26/2016. DLP: 802.[address] scans at [facility] use at least one of these dose optimization techniques: automat ed exposure control; mA and/or kV adjustment per patient size (includes targeted exams where dose is matched to clinical indication); or iterative reconstruction. Findings: The lower lungs show no nodules, masses or effusions. The liver, gallbladder, spleen, adrenal glands and pancreas are normal. The kidneys show equal bilateral contrast excretion with a left 3.5 cm cortical cyst. No masses, hydr onephrosis or renal calculi are seen. The abdominal aorta is normal in size with calcification in the wall. No appendicitis or diverticulitis is seen. Oral contrast is in the stomach, small bowel and colon and there is no bowel dilatation. No abscess, adenopathy, ascites, mass, obstruction or free air is seen . The bone the lateral thorax and lumbar spine show moderate osteoarthritic change. CT/CT abdomen w con* [id number] Impression: Negative for acute intra-abdominal abnormalities.
[2021-02-12] MEDS: iohexol 300 mg/mL 50 mL Btl PO (10:11)
[2021-02-12 10:36] LABS: Blood Urea Nitrogen 18 mg/dL (8-23); Glomerular Filtration Rate 56.2 mL/min (90-130)
== END 2021-02-12 08:57 | disposition home or self-care (01) ==
PROVIDERS: Nurse Practitioner Family
DX: R10.9 Unspecified abdominal pain (principal)
CPT/HCPCS: 74160; 82565; 84520; Q9967

== ENCOUNTER 2021-03-19 12:43 | Outpatient (CLI) | payer MEDICARE, SELFPAY ==
--- NOTE | 2021-03-19 13:07 | MM_ITS ---
WS: [id number] DIAGNOSTIC BILATERAL DIGITAL MAMMOGRAM WITH CAD HISTORY: HX OF BREAST CA COMPARISON: 08/20/2019 and 04/19/2017 TECHNIQUE: Bilateral craniocaudad, mediolateral oblique, and mediolateral views are submitted. Comput er aided detection utilized. Breast composition: There are scattered areas of fibroglandular density. Architectural distortion and curvilinear and coarse calcifications within each breast. Calcifications are dystrophic and probably related to prior mammoplasty. There is is scarring in the RIGHT breast which is probably related to the prior lumpectomy for cancer. No change in the lumpectomy scar. MM/[place] [id number] IMPRESSION: BI-RADS: 2-Benign FOLLOW UP: 1 Year Follow-up
== END 2021-03-19 12:44 | disposition home or self-care (01) ==
LOC: RADSHAW 12:57
PROVIDERS: PCP Clinical Nurse Specialist Adult Health; Visit Provider Clinical Nurse Specialist Adult Health
DX: Z85.3 Personal history of malignant neoplasm of breast (principal)
CPT/HCPCS: 77066

== ENCOUNTER 2021-05-29 11:36 | Emergency (ER) | payer MEDICARE, SELFPAY ==
[2021-05-29] VITALS (8 sets, daily range): BP systolic 91–137; BP diastolic 53–97; PULSE 78–155; RESP 17–25; TEMP 36.1; O2SAT 93–100; BMI 36.8
--- NOTE | 2021-05-29 12:01 | XRR_ITS ---
PROCEDURE INFORMATION: Exam: XR Chest Exam date and time: 05/29/2021 12:01 PM Age: 60 years old Clinical indication: Dyspnea TECHNIQUE: Imaging protocol: XR of the chest. Views: 1 view. COMPARISON: CR XR chest 1V portable [id number] 11/23/2020 9:03 PM FINDINGS: Lungs: Unremarkable. No consolidation. Pleural spaces: Unremarkable. No pleural effusion. No pneumothorax. Heart/Mediastinum: Unremarkable. No cardiomegaly. Bones/joints: Unremarkable. XR/XR chest 1V portable [id number] IMPRESSION: No acute findings.
--- NOTE | 2021-05-29 12:10 | W.ED.ARRPALP ---
HPI - Arrhythmia/Palpitations General: Chief Complaint: Arrhythmia/Palpitations Stated Complaint: LOW BP HIGH HR Time Seen by Provider: 05/29/21 11:57 History of Present Illness: HPI narrative: 60-year-old female presents emergency room with complaints of rapid heart rate. She denies any chest pain or shortness of breath began yesterday. She has a known history of atrial fibrillation and is on Eliquis. She was previously on metoprololBut it was stopped because of what she describes as had sweats. She denies any shortness of breath denies any fever sweats chills nausea vomiting diarrhea she has not missed any medications or change anything recently but only metoprolol was stopped quite some time ago. She actually just seen Dr. Noel yesterday and shortly after appointment began having palpitations prior to thatShe was asymptomatic. According to Dr. Noel's note she is taking Betapace although does not appear on her medicine list. She also has a history of hypothyroidism. MD complaint: rapid heart beat, heart racing and irregular heart beat Onset (ago): hour(s) Duration: constant Severity: moderate Arrhythmia history: atrial fibrillation Associated symptoms: Deny anxiety, cough, diaphoresis, muscle cramps, nausea, paresthesias, pre-syncope, sense of impending doom, short of breath, syncope or vomiting Review of Systems Const: Denies: diaphoresis ENMT: Denies: throat pain, ear or mastoid pain, nasal discharge or nasal congestion Card: Denies: syncope or pre-syncope Resp: Denies: dyspnea, productive cough or non-productive cough GI: Denies: nausea or vomiting : Denies: flank pain, difficulty voiding, dysuria, urinary frequency or urinary urgency Musc: Denies: muscle cramps Skin/Breast: Denies: rash or pruritus Psych: Denies: anxiety PFSH ED PFSH: Medical History Atrial fibrillation History of chronic atrial fibrillation History of COPD History of degenerative joint disease History of depression History of diverticulosis History of fibromyalgia History of fracture of lower extremity History of hypertension History of hypothyroidism Hx of atrial flutter Hx of chronic congestive heart failure Hx of colonic polyps Hx of coronary artery disease Hx of diastolic dysfunction Hx of gastroesophageal reflux (GERD) Hx of gout Hx of hemorrhoids Hx of hyperlipidemia Hx of myocardial infarction Hx of nicotine dependence Hx of obesity Hx of osteoporosis Hx of simple renal cyst Hx of sleep apnea Hx of type 2 diabetes mellitus Hypertension Surgical History History of coronary artery stent placement History of total left knee replacement History of total right knee replacement (TKR) Hx of breast reduction, elective Hx of colonoscopy Hx of coronary angioplasty Hx of esophagogastroduodenoscopy Hx of skin graft Hx of tonsillectomy Family History Other Family history non-contributory Social History Alcohol intake: never Physical Exam Const: COMMON NORMALS: no acute distress GENERAL APPEARANCE: cooperative and comfortable ORIENTATION/CONSCIOUSNESS: Yes awake, Yes oriented to person, Yes oriented to place and Yes oriented to time HENMT: COMMON NORMALS: normocephalic, atraumatic and hearing grossly normal bilaterally HEAD & SCALP: normocephalic and atraumatic Eye: COMMON NORMALS: Equal, round and reactive pupils present, EOMs intact bilaterally, conjunctivae normal and no scleral icterus CONJUNCTIVA: Yes conjunctivae normal PUPIL: Yes Equal, round and reactive pupils present Neck/C-Spine: COMMON NORMALS: full ROM, no lymphadenopathy, supple and no JVD Lymph: LYMPHATIC: no lymphadenopathy noted and no lymphedema noted Resp: COMMON NORMALS: normal respiratory effort, No retractions, No use of accessory muscles and clear to auscultation bilaterally AUSCULTATION: clear to auscultation bilaterally Cardio: COMMON NORMALS: no JVD RATE: tachycardic RHYTHM: abnormal rhythm irregularly irregular GI: COMMON NORMALS: Soft to palpation and No hepatosplenomegaly present AUSCULTATION: Yes normoactive bowel sounds PALPATION: Yes Soft to palpation, No Tenderness to palpation present (GI), No Guarding due to palpation present (GI) and Yes No hepatosplenomegaly present Extremity: COMMON NORMALS: normal to inspection, capillary refill normal, no clubbing, cyanosis or edema, no calf tenderness and no pedal edema Neuro: SENSORIUM/ORIENTATION: Yes oriented to person, Yes oriented to place and Yes oriented to time Skin: COMMON NORMALS: no rashes or lesions noted GENERAL SKIN EXAM: no rashes or lesions noted Course Vital Signs: Vital signs: Vital Signs Temperature 96.9 F L 05/29/21 11:48 Pulse Rate 80 05/29/21 15:36 Respiratory Rate 17 05/29/21 15:36 Blood Pressure 94/68 05/29/21 15:36 Pulse Oximetry 100 05/29/21 15:36 MDM - Arrhythmia/Palpitations MDM Narrative: Medical decision making narrative: RestartPatient symptoms resolved. Her on sotalol somewhat lower dose 40 mg twice a day however follow-up with co founder as soon as she is able. She has any worsening problems return Lab Data: Labs: Lab Results 05/29/21 05/29/21 05/29/21 Range/Units 12:05 12:05 12:05 WBC 6.6 (4.0-10.0) 10^3/ uL RBC 5.62 H (4.1-5.3) 10^6/u L Hgb 15.9 H (11.5-15.3) g/dL Hct 48.4 H (37.0-47.0) % MCV 86.1 (81-99) fl MCH 28.3 (28.0-34.0) pg MCHC 32.9 (30.0-36.0) g/dL RDW 13.5 (12.1-15.1) % Plt Count 192 (130-400) 10^3/c mm MPV 11.6 H (7.4-10.4) fL Neut % (Auto) 60.2 % Lymph % (Auto) 21.2 % [place] % (Auto) 11.6 % Eos % (Auto) 6.1 % Baso % (Auto) 0.6 % Neut # (Auto) 3.98 (1.8-7.7) 10^3/u L Lymph # (Auto) 1.4 (0.8-4.8) 10^3/u L [place] # (Auto) 0.8 (0.2-0.9) 10^3/u L Eos # (Auto) 0.4 (0.0-0.8) 10^3/u L Baso # (Auto) 0.0 (0.0-0.1) 10^3/u L Nucleated RBC % (a uto) 0 % Nucleated RBCs # 0.0 /100WBC PT 15.50 H (12.1-14.9) SECO NDS INR 1.19 (0.8-1.2) APTT 33.0 (23.9-36.7) SECO NDS Sodium 137 (136-145) mmol/L Potassium 4.5 (3.5-5.1) mmol/L Chloride 101 (98-107) mmol/L Carbon Dioxide 24 (22-29) mmol/L Anion Gap 16.5 (5-19) BUN 14 (8-23) mg/dL Creatinine 0.8 (0.5-0.9) mg/dL GFR Calculation 72.7 L (90-130) mL/min Glucose 103 (65-115) mg/dL Calculated Osmolal ity 285 (285-295) mOsm/k g Calcium 9.0 (8.5-10.5) mg/dL Total Bilirubin 0.3 (0.15-1.2) mg/dL AST 27 (0-32) U/L ALT 24 (0-33) U/L Alkaline Phosphata se 89 (35-105) IU/L Troponin T Baselin e (0-10) ng/L Troponin T 120 Min [place] (0-10) ng/L [place] Troponin T (0-10) ABS# Total Protein 6.4 L (6.6-8.7) g/dL Albumin 4.2 (3.5-5.2) g/dL Globulin 2.2 (1.3-4.6) g/dL 05/29/21 05/29/21 Range/Units 12:05 13:23 WBC (4.0-10.0) 10^3/ uL RBC (4.1-5.3) 10^6/u L Hgb (11.5-15.3) g/dL Hct (37.0-47.0) % MCV (81-99) fl MCH (28.0-34.0) pg MCHC (30.0-36.0) g/dL RDW (12.1-15.1) % Plt Count (130-400) 10^3/c mm MPV (7.4-10.4) fL Neut % (Auto) % Lymph % (Auto) % [place] % (Auto) % Eos % (Auto) % Baso % (Auto) % Neut # (Auto) (1.8-7.7) 10^3/u L Lymph # (Auto) (0.8-4.8) 10^3/u L [place] # (Auto) (0.2-0.9) 10^3/u L Eos # (Auto) (0.0-0.8) 10^3/u L Baso # (Auto) (0.0-0.1) 10^3/u L Nucleated RBC % (a uto) % Nucleated RBCs # /100WBC PT (12.1-14.9) SECO NDS INR (0.8-1.2) APTT (23.9-36.7) SECO NDS Sodium (136-145) mmol/L Potassium (3.5-5.1) mmol/L Chloride (98-107) mmol/L Carbon Dioxide (22-29) mmol/L Anion Gap (5-19) BUN (8-23) mg/dL Creatinine (0.5-0.9) mg/dL GFR Calculation (90-130) mL/min Glucose (65-115) mg/dL Calculated Osmolal ity (285-295) mOsm/k g Calcium (8.5-10.5) mg/dL Total Bilirubin (0.15-1.2) mg/dL AST (0-32) U/L ALT (0-33) U/L Alkaline Phosphata se (35-105) IU/L Troponin T Baselin e 72 H (0-10) ng/L Troponin T 120 Min [place] 75.87 H (0-10) ng/L [place] Troponin T 3.87 (0-10) ABS# Total Protein (6.6-8.7) g/dL Albumin (3.5-5.2) g/dL Globulin (1.3-4.6) g/dL Discharge Plan Discharge Patient Disposition: Home Clinical Impression: Atrial fibrillation Qualifiers: Atrial fibrillation type: persistent (not longstanding) Qualified Code(s): I48.19 - Other persistent atrial fibrillation Condition: Stable Prescriptions: New sotalol 80 mg tablet 40 mg PO BID Qty: 14 RF: 0 No Action magnesium citrate [Citrate of Magnesia] Solution 30 ml PO DAILY PRN (Reason: Constipation) RF: 0 ascorbic acid (vitamin C) 250 mg tablet 250 mg PO DAILY RF: 0 potassium chloride 10 mEq capsule, extended release 10 meq PO DAILY@ RF: 0 simvastatin 40 mg tablet 40 mg PO DAILY@ RF: 0 pantoprazole 40 mg tablet,delayed release (DR/EC) 40 mg PO DAILY@ RF: 0 lisinopril 10 mg tablet 10 mg PO DAILY@ RF: 0 montelukast 10 mg tablet 10 mg PO DAILY@ RF: 0 glipizide 5 mg tablet 5 mg PO DAILY@ RF: 0 buspirone 10 mg tablet 10 mg PO BID@, RF: 0 furosemide 20 mg Tablet 20 mg PO DAILY@ RF: 0 cholecalciferol (vitamin D3) [Vitamin D3] 25 mcg (1,000 unit) Capsule 25 mcg PO DAILY@ RF: 0 calcium 500 mg Tablet 500 mg PO DAILY Qty: 0 RF: 0 ibuprofen 400 mg Tablet 400 mg PO BID PRN (Reason: Pain) RF: 0 zinc 50 mg Capsule 50 mg PO DAILY@ RF: 0 fluticasone propionate 50 mcg/actuation [place],Suspension 2 spray INTRANASAL DAILY PRN (Reason: Allergy Symptoms) RF: 0 Eliquis 5 mg tablet 5 mg PO BID Qty: 0 RF: 0 levothyroxine 150 mcg tablet 150 mcg PO DAILY RF: 0 albuterol sulfate 90 mcg/actuation HFA aerosol inhaler 1 puff INHALATION Q6H PRN (Reason: Shortness Of Breath) RF: 0 Discharge Orders: Discharge ED (Routine); Ordered 05/29/21 Ordered By: Weston Barboza Referrals: Nirmal Hines [Primary Care Provider] - Discharge Diet: Usual diet Discharge Activity: Increase activity as tolerated Patient Instructions: Opioid Safety Activity Restrictions/Additional Instructions: Restart sotalol 40 mg twice daily. Follow-up with cardiology in the coming week to reevaluate medications for rate control for your heart Coding Level of Care Code ED Electrical Prospecting Operator for Wendie Fwaleksandar Exam Comprehensive
[2021-05-29 12:33] LABS: Basophils % 0.6 %; Eosinophils # 0.4 10^3/uL (0.0-0.8); Eosinophils % 6.1 %; Hematocrit 48.4 % (37.0-47.0); Hemoglobin 15.9 g/dL (11.5-15.3); Lymphocytes # 1.4 10^3/uL (0.8-4.8); Lymphocytes % 21.2 %; Mean Corpuscular HGB Conc 32.9 g/dL (30.0-36.0); Mean Corpuscular Hemoglobin 28.3 pg (28.0-34.0); Mean Corpuscular Volume 86.1 fl (81-99); Mean Platelet Volume 11.6 fL (7.4-10.4); Monocytes # 0.8 10^3/uL (0.2-0.9); Monocytes % 11.6 %; Neutrophils # 3.98 10^3/uL (1.8-7.7); Neutrophils % 60.2 %; Nucleated Red Blood Cells % 0 %; Platelet Count 192 10^3/cmm (130-400); Red Blood Count 5.62 10^6/uL (4.1-5.3); Red Cell Distribution Width 13.5 % (12.1-15.1); White Blood Count 6.6 10^3/uL (4.0-10.0)
[2021-05-29 12:44] LABS: INR 1.19 (0.8-1.2)
[2021-05-29 12:49] LABS: Troponin(5th) Baseline 72 ng/L (0-10)
[2021-05-29 12:52] LABS: Alanine Aminotransferase 24 U/L (0-33); Albumin Level 4.2 g/dL (3.5-5.2); Alkaline Phosphatase 89 IU/L (35-105); Anion Gap 16.5 (5-19); Aspartate Amino Transferase 27 U/L (0-32); Blood Urea Nitrogen 14 mg/dL (8-23); Carbon Dioxide 24 mmol/L (22-29); Chloride 101 mmol/L (98-107); Globulin 2.2 g/dL (1.3-4.6); Glomerular Filtration Rate 72.7 mL/min (90-130); Glucose 103 mg/dL (65-115); Osmolality Calculated 285 mOsm/kg (285-295); Potassium 4.5 mmol/L (3.5-5.1); Sodium 137 mmol/L (136-145); Total Bilirubin 0.3 mg/dL (0.15-1.2); Total Protein 6.4 g/dL (6.6-8.7)
--- NOTE | 2021-05-29 13:12 | ECG_ITS ---
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 Icu: : 1960 Requested By: Weston Wolfe Order Number: [id number] Reading MD: ABDI AMBROSE Measurements Intervals [place] Rate: 155 P: ME: QRS: -69 QRSD: 115 T: 117 QT: 279 QTc: 449 Interpretive Statements ATRIAL FLUTTER/TACHYCARDIA WITH RAPID VENTRICULAR RESPONSE PATTERN CONSISTENT WITH PULMONARY DISEASE RIGHT BUNDLE BRANCH BLOCK [120+ ms QRS DURATION, UPRIGHT V1, 40+ ms S IN I/aVL/V4/V5/V6] LEFT ANTERIOR FASCICULAR BLOCK [QRS AXIS <= -45, QR IN I, RS IN II] LEFT VENTRICULAR HYPERTROPHY AND ST-T CHANGE [VOLTAGE CRITERIA PLUS ST/T ABNORMALITY] POSSIBLE SEPTAL MYOCARDIAL INFARCTION [30 ms Q WAVE IN V1/V2], OF INDETERMINATE AGE ST DEPRESSION, CONSIDER SUBENDOCARDIAL INJURY [0.1+ mV ST DEPRESSION] Compared to ECG 11/24/2020 00:55:26 Sinus rhythm no longer present Electronically Signed On 05-29-2021 20:14:49 CDT by ABDI AMBROSE [id number]
[2021-05-29 13:59] LABS: Troponin 5 2HR 75.87 ng/L (0-10); Troponin 5 2HR Delta 3.87 ABS# (0-10)
--- NOTE | 2021-05-29 14:02 | ECG_ITS ---
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: : 1960 Requested By: Weston Wolfe Order Number: [id number] Reading MD: ABDI AMBROSE Measurements Intervals [place] Rate: 77 P: ME: QRS: -32 QRSD: 130 T: -59 QT: 400 QTc: 454 Interpretive Statements ATRIAL FLUTTER/TACHYCARDIA LEFT AXIS DEVIATION [QRS AXIS < -30] RIGHT BUNDLE BRANCH BLOCK [120+ ms QRS DURATION, UPRIGHT V1, 40+ ms S IN I/aVL/V4/V5/V6] LEFT VENTRICULAR HYPERTROPHY AND ST-T CHANGE [VOLTAGE CRITERIA PLUS ST/T ABNORMALITY] POSSIBLE SEPTAL MYOCARDIAL INFARCTION , PROBABLY OLD [30 ms Q WAVE IN V1/V2] LATERAL MYOCARDIAL INFARCTION , OF INDETERMINATE AGE [40+ ms Q WAVE AND/OR ST/T ABNORMALITY IN I/aVL/V5/V6] Compared to ECG 05/29/2021 11:47:29 Left-axis deviation now present Left anterior fascicular block no longer present Electronically Signed On 05-29-2021 20:17:39 CDT by ABDI AMBROSE [id number]
[2021-05-29] MEDS: metoprolol tartrate 1 mg/1 mL SDV 5 mL 2.5 MG IVP (14:39)
[2021-05-29] MEDS: sotalol 80 mg Tablet 40 MG PO (15:16)
== END 2021-05-29 15:38 | disposition home or self-care (01) ==
PROVIDERS: Emergency Provider Family Medicine; PCP Clinical Nurse Specialist Adult Health
DX: I48.19 Other persistent atrial fibrillation (principal); Z79.84 Long term (current) use of oral hypoglycemic drugs; Z79.01 Long term (current) use of anticoagulants; J44.9 Chronic obstructive pulmonary disease, unspecified; I11.0 Hypertensive heart disease with heart failure; I50.9 Heart failure, unspecified; I25.10 Atherosclerotic heart disease of native coronary artery without angina pectoris; E78.5 Hyperlipidemia, unspecified; I25.2 Old myocardial infarction; E11.9 Type 2 diabetes mellitus without complications; Z98.61 Coronary angioplasty status
CPT/HCPCS: 71045; 80053; 84484; 85025; 85610; 85730; 93005; 96365; 96366; 96375; 99284; J3490

== ENCOUNTER 2021-05-30 13:22 | Emergency (ER) | payer MEDICARE, SELFPAY ==
[2021-05-30 13:30] VITALS: BP 111/79; PULSE 147; RESP 20; TEMP 36.6; O2SAT 97; BMI 35.6
[2021-05-30 14:05] VITALS: BP 81/58; PULSE 76; RESP 20; O2SAT 94
--- NOTE | 2021-05-30 14:07 | ED_ITS ---
HPI - General Adult General: Chief complaint: Arrhythmia/Palpitations Stated complaint: AFIB RELATED COMPLICATIONS/HERE YESTERDAY Time Seen by Provider: 05/30/21 13:36 History of Present Illness: HPI narrative: Patient is a 60-year-old female with history of CAD, atrial flutter with RVR, atrial fibrillation with RVR on Eliquis who was recently seen in the emergency room for complaints of atrial fibrillation with RVR on 05/29/2021. At that point time, patient has spontaneous conversion to NSR after medical treatment. Patient noticed that this morning around 9:32 AM she suddenly developed palpitation while taking a shower. Patient was at her heart rate was in the 150s. Patient then presented to the emergency room for evaluation. She recently restarted her sotalol 40 mg twice daily. Onset:chronic Duration:ongoing Location:home Severity:moderate Review of Systems Narrative: Constitutional: No fever, no chills. HEENT: No vision changes CV: No chest pain, +palpitations PULM: no cough, no dyspnea. GI: No abdominal pain, no N/V/D. : No dysuria MSKEL: No muscle pain SKIN: No new rashes, no lesions. NEURO: No headache, no focal weakness. HEME: No visible bruises PSYCH: Normal mood PFSH ED PFSH: Medical History Atrial fibrillation History of chronic atrial fibrillation History of COPD History of degenerative joint disease History of depression History of diverticulosis History of fibromyalgia History of fracture of lower extremity History of hypertension History of hypothyroidism Hx of atrial flutter Hx of chronic congestive heart failure Hx of colonic polyps Hx of coronary artery disease Hx of diastolic dysfunction Hx of gastroesophageal reflux (GERD) Hx of gout Hx of hemorrhoids Hx of hyperlipidemia Hx of myocardial infarction Hx of nicotine dependence Hx of obesity Hx of osteoporosis Hx of simple renal cyst Hx of sleep apnea Hx of type 2 diabetes mellitus Hypertension Surgical History History of coronary artery stent placement History of total left knee replacement History of total right knee replacement (TKR) Hx of breast reduction, elective Hx of colonoscopy Hx of coronary angioplasty Hx of esophagogastroduodenoscopy Hx of skin graft Hx of tonsillectomy Family History Other Family history non-contributory Social History Smoking and tobacco status: current every day smoker Alcohol intake: never Female Reproductive History: Date of last menstrual period: 12/17/20 Physical Exam Narrative: EXAM NARRATIVE: Head: Atraumatic Eyes: PERRL, conjunctiva without injection ENT: Mucous membrane moist NECK: Supple, ROM intact LUNGS: LCTAB, no crackles/rhonchi CV: +Regular tachycardia ABDOMEN: Soft, nontender in all quadrants EXTREMITY: Normal ROM SKIN: No rash or erythema NEURO: Awake and alert, no focal motor deficits PSYCH: Normal mood and affect Course Vital Signs: Vital signs: Vital Signs Temperature 97.9 F 05/30/21 13:30 Pulse Rate 79 05/30/21 14:50 Respiratory Rate 17 05/30/21 14:50 Blood Pressure 97/60 05/30/21 14:50 Pulse Oximetry 96 05/30/21 14:50 MDM - General Adult MDM Narrative: Medical decision making narrative: Patient is a 60-year-old female with history of her fibrillation and atrial flutter who presents to the emergency room for evaluation of acute palpitation since 9:32 AM. EKG showing 3:1 atrial flutter at 119 with occasional 4:1 conductions. Normal axis. No ST elevations/depressions to suggest coronary occlusion. Normal [place], QRS, QT intervals. Received 1 dose of Cardizem in the emergency room with heart rate improving to the 70s. Patient continues to be in 4:1 atrial flutter now with controlled rate . Blood pressure has been stable. Patient has been able to ambulate. I have discussed with patient and that she needs to follow-up with her rocket engine mechanic for reassessment her medication. Patient agrees with plan. Disposition: Discharge. Patient is given strict return precaution of any or signs palpitation lightheadedness, fever/chills, nausea/vomiting, any new or concerning complaints. Patient aware that she needs to follow-up with her rocket engine mechanic in the next 24 to 48 hours as this is her third visit in the emergency room. Lab Data: Labs: Lab Results 05/30/21 05/30/21 Range/Units 14:08 14:08 WBC 8.0 (4.0-10.0) 10^3/ uL RBC 5.29 (4.1-5.3) 10^6/u L Hgb 15.3 (11.5-15.3) g/dL Hct 47.0 (37.0-47.0) % MCV 88.8 (81-99) fl MCH 28.9 (28.0-34.0) pg MCHC 32.6 (30.0-36.0) g/dL RDW 14.1 (12.1-15.1) % Plt Count 193 (130-400) 10^3/c mm MPV 11.7 H (7.4-10.4) fL Neut % (Auto) 57.5 % Lymph % (Auto) 24.7 % [place] % (Auto) 8.9 % Eos % (Auto) 8.2 % Baso % (Auto) 0.4 % Neut # (Auto) 4.59 (1.8-7.7) 10^3/u L Lymph # (Auto) 2.0 (0.8-4.8) 10^3/u L [place] # (Auto) 0.7 (0.2-0.9) 10^3/u L Eos # (Auto) 0.7 (0.0-0.8) 10^3/u L Baso # (Auto) 0.0 (0.0-0.1) 10^3/u L Nucleated RBC % (a uto) 0 % Nucleated RBCs # 0.0 /100WBC Sodium Cancelled Potassium Cancelled Chloride Cancelled Carbon Dioxide Cancelled Anion Gap Cancelled BUN Cancelled Creatinine Cancelled GFR Calculation Cancelled Glucose Cancelled Calculated Osmolal ity Cancelled Calcium Cancelled Magnesium Cancelled Discharge Plan Discharge Patient Disposition: Home Clinical Impression: Atrial flutter Condition: Stable Prescriptions: No Action magnesium citrate [Citrate of Magnesia] Solution 30 ml PO DAILY PRN (Reason: Constipation) RF: 0 ascorbic acid (vitamin C) 250 mg tablet 250 mg PO DAILY RF: 0 potassium chloride 10 mEq capsule, extended release 10 meq PO DAILY@09 RF: 0 simvastatin 40 mg tablet 40 mg PO DAILY@21 RF: 0 pantoprazole 40 mg tablet,delayed release (DR/EC) 40 mg PO DAILY@09 RF: 0 lisinopril 10 mg tablet 10 mg PO DAILY@09 RF: 0 montelukast 10 mg tablet 10 mg PO DAILY@21 RF: 0 glipizide 5 mg tablet 5 mg PO DAILY@ RF: 0 buspirone 10 mg tablet 10 mg PO BID@ RF: 0 furosemide 20 mg Tablet 20 mg PO DAILY@09 RF: 0 cholecalciferol (vitamin D3) [Vitamin D3] 25 mcg (1,000 unit) Capsule 25 mcg PO DAILY@09 RF: 0 calcium 500 mg Tablet 500 mg PO DAILY Qty: 0 RF: 0 ibuprofen 400 mg Tablet 400 mg PO BID PRN (Reason: Pain) RF: 0 zinc 50 mg Capsule 50 mg PO DAILY@ RF: 0 fluticasone propionate 50 mcg/actuation [place],Suspension 2 spray INTRANASAL DAILY PRN (Reason: Allergy Symptoms) RF: 0 Eliquis 5 mg tablet 5 mg PO BID Qty: 0 RF: 0 levothyroxine 150 mcg tablet 150 mcg PO DAILY RF: 0 albuterol sulfate 90 mcg/actuation HFA aerosol inhaler 1 puff INHALATION Q6H PRN (Reason: Shortness Of Breath) RF: 0 sotalol 80 mg tablet 40 mg PO BID Qty: 14 RF: 0 Discharge Orders: Discharge ED (Routine); Ordered 05/30/21 Ordered By: Bertha Patel Referrals: Nirmal Hines [Primary Care Provider] - Discharge Diet: Advance as tolerated Discharge Activity: Resume usual activity Patient Instructions: Atrial Flutter (ED) Activity Restrictions/Additional Instructions: Please follow-up with a rocket engine mechanic as soon as possible. Coding Level of Care Code ED Drafter Apprentice for Wendie Mata
[2021-05-30] MEDS: sodium chloride 0.9% 500 ML IV (14:13)
[2021-05-30 14:23] LABS: Basophils % 0.4 %; Eosinophils # 0.7 10^3/uL (0.0-0.8); Eosinophils % 8.2 %; Hemoglobin 15.3 g/dL (11.5-15.3); Lymphocytes % 24.7 %; Mean Corpuscular HGB Conc 32.6 g/dL (30.0-36.0); Mean Corpuscular Hemoglobin 28.9 pg (28.0-34.0); Mean Corpuscular Volume 88.8 fl (81-99); Mean Platelet Volume 11.7 fL (7.4-10.4); Monocytes # 0.7 10^3/uL (0.2-0.9); Monocytes % 8.9 %; Neutrophils # 4.59 10^3/uL (1.8-7.7); Neutrophils % 57.5 %; Nucleated Red Blood Cells % 0 %; Platelet Count 193 10^3/cmm (130-400); Red Blood Count 5.29 10^6/uL (4.1-5.3); Red Cell Distribution Width 14.1 % (12.1-15.1)
[2021-05-30 14:25] VITALS: BP 100/59; PULSE 78; RESP 19; O2SAT 96
[2021-05-30 14:50] VITALS: BP 97/60; PULSE 79; RESP 17; O2SAT 96
== END 2021-05-30 14:50 | disposition home or self-care (01) ==
PROVIDERS: Emergency Provider Emergency Medicine; PCP Clinical Nurse Specialist Adult Health
DX: I48.92 Unspecified atrial flutter (principal); Z79.01 Long term (current) use of anticoagulants; Z79.84 Long term (current) use of oral hypoglycemic drugs; J44.9 Chronic obstructive pulmonary disease, unspecified; I11.0 Hypertensive heart disease with heart failure; I50.9 Heart failure, unspecified; I25.10 Atherosclerotic heart disease of native coronary artery without angina pectoris; E78.5 Hyperlipidemia, unspecified; I25.2 Old myocardial infarction; E11.9 Type 2 diabetes mellitus without complications; Z98.61 Coronary angioplasty status; F17.210 Nicotine dependence, cigarettes, uncomplicated
CPT/HCPCS: 85025; 96361; 96374; 99284; J3490; J7040

== ENCOUNTER → 2021-06-30 10:05 | Outpatient (BNVA) | payer MEDICARE, SELFPAY | PROVIDERS: PCP Clinical Nurse Specialist Adult Health; Visit Provider Thoracic Surgery (Cardiothoracic Vascular Surgery) | DX: Z01.818 Encounter for other preprocedural examination (principal); Z20.822 Contact with and (suspected) exposure to COVID-19 | CPT/HCPCS: 87635 ==

== ENCOUNTER 2021-07-05 16:03 | Observation (INO) | payer MEDICARE, SELFPAY ==
[2021-06-30 09:13] VITALS: BMI 35.4
[2021-06-30 09:50] LABS: Basophils % 0.4 %; Eosinophils # 0.6 10^3/uL (0.0-0.8); Eosinophils % 8.2 %; Hematocrit 46.7 % (37.0-47.0); Lymphocytes # 1.3 10^3/uL (0.8-4.8); Lymphocytes % 19.3 %; Mean Corpuscular HGB Conc 32.1 g/dL (30.0-36.0); Mean Corpuscular Hemoglobin 27.9 pg (28.0-34.0); Mean Platelet Volume 11.4 fL (7.4-10.4); Monocytes # 0.6 10^3/uL (0.2-0.9); Monocytes % 8.8 %; Nucleated Red Blood Cells % 0 %; Platelet Count 184 10^3/cmm (130-400); Red Blood Count 5.37 10^6/uL (4.1-5.3); Red Cell Distribution Width 13.7 % (12.1-15.1); White Blood Count 6.8 10^3/uL (4.0-10.0)
[2021-06-30 10:15] LABS: Anion Gap 14.7 (5-19); Blood Urea Nitrogen 18 mg/dL (8-23); Calcium 9.6 mg/dL (8.5-10.5); Carbon Dioxide 25 mmol/L (22-29); Chloride 102 mmol/L (98-107); Glomerular Filtration Rate 72.4 mL/min (90-130); Glucose 133 mg/dL (65-115); Osmolality Calculated 288 mOsm/kg (285-295); Potassium 4.7 mmol/L (3.5-5.1); Sodium 137 mmol/L (136-145)
--- NOTE | 2021-06-30 10:37 | ANES.PREANE2 ---
Pre-Anesthetic Assessment Pre-Anesthetic Assessment: Height/Weight: Height 1.57 m Weight 87.997 kg Proposed Procedure: Operation Date: 07/05/21 11:00 Proposed Procedures p Pacemaker Insertion(Not Applicable) - Avtar William MD Was Beta Kiesha taken within 24 hours: Yes Was Clonidine taken within 24 hours: N/A Social: Social History: Tobacco and No alcohol Exam: Pre-Anes Outpt Exam: alert, oriented x 3 and regular rate & rhythm Additional Exam Findings (including area of procedure): rhonchi Airway: Submandibular: WNL Cervical ROM: WNL MP: 2 Dentition: False Pulmonary: Pulmonary: COPD CV/HEM: CV/HEM: Afib, Arrythmia, CAD and HTN GI: GI: GERD Metabolic: Metabolic: Hyperlipidemia, Morbid obesity and Thyroid Anesthetic Plan: ASA status: 3 Anesthesia: MAC Risk of > 500 ml blood loss (7ml/kg in children): No PFSH Anesthesia PFSH: Medical History Atrial fibrillation History of chronic atrial fibrillation History of COPD History of degenerative joint disease History of depression History of diverticulosis History of fibromyalgia History of fracture of lower extremity History of hypertension History of hypothyroidism Hx of atrial flutter Hx of chronic congestive heart failure Hx of colonic polyps Hx of coronary artery disease Hx of diastolic dysfunction Hx of gastroesophageal reflux (GERD) Hx of gout Hx of hemorrhoids Hx of hyperlipidemia Hx of myocardial infarction Hx of nicotine dependence Hx of obesity Hx of osteoporosis Hx of simple renal cyst Hx of sleep apnea Hx of type 2 diabetes mellitus Hypertension Surgical History History of coronary artery stent placement History of total left knee replacement History of total right knee replacement (TKR) Hx of breast reduction, elective Hx of colonoscopy Hx of coronary angioplasty Hx of esophagogastroduodenoscopy Hx of skin graft Hx of tonsillectomy Family History Other Family history non-contributory Social History Smoking and tobacco status: current every day smoker Alcohol intake: never Female Reproductive History: Date of last menstrual period: 12/17/20 Data Anesthesia CBC & Chem 7: 10/06/21 09:30 06/30/21 09:30 Other Labs: Laboratory Results - last 48 hr 06/30/21 06/30/21 09:30 09:30 WBC 6.8 RBC 5.37 H Hgb 15.0 Hct 46.7 MCV 87.0 MCH 27.9 L MCHC 32.1 RDW 13.7 Plt Count 184 MPV 11.4 H Neut % (Auto) 63.0 Lymph % (Auto) 19.3 [place] % (Auto) 8.8 Eos % (Auto) 8.2 Baso % (Auto) 0.4 Neut # (Auto) 4.30 Lymph # (Auto) 1.3 [place] # (Auto) 0.6 Eos # (Auto) 0.6 Baso # (Auto) 0.0 Nucleated RBC % (auto) 0 Nucleated RBCs # 0.0 Sodium 137 Potassium 4.7 Chloride 102 Carbon Dioxide 25 Anion Gap 14.7 BUN 18 Creatinine 0.8 GFR Calculation 72.4 L Glucose 133 H Calculated Osmolality 288 Calcium 9.6 Cardiac Studies: Echocardiogram 11/25/20 Cardiac Event Monitor 12/08/20
[2021-07-05] VITALS (7 sets, daily range): BP systolic 101–159; BP diastolic 54–82; PULSE 57–74; RESP 16–19; TEMP 36.4–37.1; O2SAT 92–95
--- NOTE | 2021-07-05 | SCC_ITS ---
Procedure Done: Dual-chamber pacemaker implantation 116.7 seconds of fluoroscopic guidance, for a cumulative dose of 50.88 mGy, was provided to Dr. William by the radiology department. C-arm images of the chest were saved for the patient's permanent record. [facility]
--- NOTE | 2021-07-05 10:57 | SC_ITS ---
WS: [id number] C-arm FL for Pacemaker REASON FOR EXAM: Pacemaker implantation FINDINGS: Single intraprocedural view demonstrates pacemaker leads in positions consistent with the right atriu m and right ventricular apex. SC/C-arm FL for Pacemaker IMPRESSION: Cardiac pacemaker lead positioning as above.
[2021-07-05] MEDS: sodium chloride 0.9% 1,000 ML 30 ML IV (12:51)
[2021-07-05 12:54] LABS: Glucose Point of Care 117 mg/dL (70-110)
[2021-07-05] MEDS: vancomycin 1,500 MG/300 ML PIGGYBACK 200 MG IV (13:55)
[2021-07-05 14:05] LABS: Add Urine Microscopic? NO; Bilirubin Urine Neg (Negative); Blood Urine Neg (Negative); Glucose Urine UA Norm (Normal); Ketones Urine Negative (Negative); Leukocyte Esterase Urine Negative (Negative); Nitrate Urine Negative (Negative); Protein Urine Neg (Negative); Specific Gravity, Urine 1.015 (1.005-1.030); Sulfosalicylic Acid Urine Negative (Negative); Urine Appearance Clear (CLEAR); Urine Color Yellow (Yellow); Urobilinogen Urine Norm (Negative); pH Urine 8 (5-7)
[2021-07-05 14:07] LABS: Charge for UA Resulting for Rev
[2021-07-05 14:15] LABS: INR 0.99 (0.8-1.2)
--- NOTE | 2021-07-05 14:35 | W.PM.OPSUD ---
Surgery/Procedure H&P Update DATE OF PROCEDURE: July 05, 2021 DATE H&P PERFORMED: 06/28/21 H&P UPDATE INFORMATION: I have reviewed H&P completed within last 30 days, I have examined patient prior to procedure and No changes to prior documentation PREOP DIAGNOSIS: Bradycardia syndrome/chronic A. fib PRIMARY INDICATION FOR PROCEDURE: Bradycardia with medical management of chronic afib. PLANNED PROCEDURE: Operation Date: 07/05/21 12:00 Proposed Procedures p Pacemaker Insertion(Not Applicable) - Avtar William MD
--- NOTE | 2021-07-05 14:43 | P.ANESUD_ITS ---
Pre-Anesthetic Update Pre-Anesthetic Assessment: Date of Surgery/Procedure: 07/05/21 Preop Deepali gnosis: Bradycardia syndrome/chronic A. fib Proposed Procedure: Operation Date: 07/05/21 12:00 Proposed Procedures p Pacemaker Insertion(Not Applicable) - Avtar William MD Any changes to Pre-Anesthetic Assessment?: No Last Intake: Intake Last Liquid Date 07/04/21 Last Liquid Time 17:00 Last Solid Date 07/04/21 Last Solid Time 15:00 Labs Last 48hrs: Laboratory Results - last 48 hr 07/05/21 07/05/21 07/05/21 12:40 12:51 12:52 PT 13.40 INR 0.99 POC Glucose 117 H Urine Color Yellow Urine Appearance Clear Urine pH 8 H Ur Specific Gravit y 1.015 Urine Protein Neg Urine Glucose (UA) Norm Urine Ketones Negative Urine Blood Neg Urine Nitrate Negative Urine Bilirubin Neg Prot Sulfosalicyli c Acd Negative Urine Urobilinogen Norm Ur Leukocyte Abida ase Negative Vitals: Temperature 97.8 F 07/05/21 12:52 Temperature Source Temporal Artery S can 07/05/21 12:52 Pulse Rate 57 L 07/05/21 12:52 Respiratory Rate 16 07/05/21 12:52 Blood Pressure 159/54 07/05/21 12:52 Blood Pressure Chelo n 89 07/05/21 12:52 Pulse Oximetry 95 07/05/21 12:52 Oxygen Delivery Me thod 07/05/21 12:52 Exam: Pre-Anes Outpt Exam: alert, oriented x 3, clear to auscultation bilaterally and regular rate & rhythm Cardiac Studies: Echocardiogram 11/25/20 Cardiac Event Monitor 12/08/20
[2021-07-05] MEDS: vancomycin 1,000 MG SDV 1000 MG IRRIGATION (15:20)
[2021-07-05] MEDS: lidocaine 1% INJ 20 mL INJECTION (15:29)
--- NOTE | 2021-07-05 16:32 | PM.OP ---
Operative Report Date of procedure: July 05, 2021 Pre-op Diagnosis: Tachybradycardia syndrome Post-op diagnosis: same Procedure Done: Dual-chamber pacemaker implantation Implants: Atrial and ventricular lead; pacing generator Pathology: none sent Anesthesia: MAC and Local Complications: None: Post procedure chest x-ray pending Condition: stable Disposition: PACU Brief History: Ms. Segura is a 61-year-old female with medically refractory atrial fibrillation and atrial fibrillation associated tachycardia. She does have profound episodes of bradycardia during medical management to control her heart rate. Dr. Bernabe has recommended pacemaker implantation to allow for more aggressive medical control. She has been noted to have sinus rhythm back in November of this year, and was in sinus rhythm at the time of her presentation today. Therefore, we will plan for dual-chamber pacemaker implantation. Details risk of the procedure were carefully and frankly discussed with Ms. Segura, her , and her daughter. All questions answered. Appropriate consents have been reviewed and signed. Procedure: Procedure: Ms. Segura was taken to the OR suite and placed in the supine position over a shoulder roll. She received conscious sedation with continuous anesthesia monitoring by. Her entire chest was sterilely prepped and draped. 1% lidocaine was infiltrated in the left subclavicular region. While in Trendelenburg position, utilizing modified seldinger technique, 2 guidewires were placed in the left subclavian vein. This was confirmed in position by fluoroscopy. Next, after infiltration with lidocaine, a subcutaneous pocket was created beginning from the exit point of the guidewire and extending laterally and inferiorly. Cautery was utilized to create the pocket just above the pectoralis musculature. Hemostasis was confirmed. An antibiotic-soaked sponge was placed in the wound. A dilator and tear-away sheath was placed over the first guidewire and advanced under fluoroscopy. Guidewire and dilator were removed. Next using a combination of curved and straight stylettes, the right ventricular lead was placed in position by fluoroscopy. The distal screw was extended. Interrogation was then performed confirming appropriate parameters. The tear-away sheath was then removed and the ventricular lead was sewn to the floor of the subcutaneous pocket. In a similar fashion dilator and tear-away sheath was placed over the 2nd guide wire and advanced under fluoroscopy. Guidewire and dilator were removed. Straight and curved stylettes were used to position the right atrial lead with fluoroscopy. Distal screw was extended. Interrogation was then performed. Tear-away sheath was then removed. Atrial lead was secured to the floor of the subcutaneous pocket. Pocket was irrigated with antibiotic solution and hemostasis again confirmed. Pacing generator was brought into the field, and after confirmation of hemostasis in the subcutaneous pocket, the leads were connected to the generator with appropriate capture. The entire system was interrogated by fluoroscopy. Leads and generator were secured in the pocket. Sponge and needle count was correct. The wound was then closed in 2 layers of 3-0 Vicryl suture. Skin was reapproximated in a subcuticular manner with 4-0 Monocryl suture. A pressure dressing was applied. The left arm was placed in a sling. The patient had equal breath sounds bilaterally. She was then transferred to the PACU, where chest x-ray is currently pending. I did pediatric genetic counselor with her family at the completion of the procedure. Following are the specifics of this system: Right ventricular lead is model 5076. Serial number [id number] Right atrial lead is model 5076. Serial number [id number]. Ventricular lead was placed with an impedance of 573 ohms. Threshold was 1.0 V Atrial lead had sensing of 4.4 mV with an impedance of 380 ohms. Threshold was 0.5 V. [employer] generator: Model # [id number] Serial #[id number]
--- NOTE | 2021-07-05 16:33 | XR_ITS ---
WS: [id number] XR chest 1V portable [id number] REASON FOR EXAM: POST PACEMAKER FINDINGS: Battery pack in place over the left upper chest with intact leads through the left subclavian vein to the right atrium and right ventricular apex The heart is at the upper limits of normal. No pneumothorax. Increased density over the mid and lateral left upper field not previously seen. Could be overlying a rtifact however cannot exclude lung consolidation. No other significant abnormality. XR/XR chest 1V portable [id number] IMPRESSION: Abnormality left hemithorax as above recommend follow-up CXR
--- NOTE | 2021-07-05 16:54 | SUR.PHASEI ---
1640 PT AWAKE ALERT MONITOR 80 % PACED AND THE REST SR NO ECTOPY NOTED VSS PT HOB AT 45 DEGREES X-RAY DONE AND DR QUINTERO NOTIFIED PT IS OK TO GO TO FLOOR. FAMILY UPDATED AND WALKED UP WITH PT, PT TALKIVE TO FAMILY AND ORIENTED X 3 PT TO ROOM AND AMBULATED TO BED.
[2021-07-05] MEDS: sotalol 80 mg Tablet 40 MG PO (20:08)
[2021-07-05] MEDS: atorvastatin 40 mg Tablet 20 MG PO (20:08)
[2021-07-05] MEDS: BuSPIRONE 10 mg Tablet PO (20:09)
[2021-07-05] MEDS: montelukast sodium 10 mg Tablet PO (20:09)
--- NOTE | 2021-07-05 20:09 | ANE.PACU2 ---
Inpatient post-anesthesia follow up: Airway intact: Yes Vital signs: Temperature 98 F Pulse Rate 60 Respiratory Rate 16 Blood Pressure 155/81 Pulse Oximetry 95 Oxygen Delivery Me thod Room Air Oxygen Flow Rate Fraction of Inspir ed Oxygen Hydration adequate: Yes Nausea and vomiting: No Pain level: 1 Mental status: Baseline
[2021-07-06] VITALS: BP 138/72; PULSE 62; RESP 18; TEMP 36.6; O2SAT 95
[2021-07-06 02:07] VITALS: RESP 16
[2021-07-06] MEDS: oxyCODONE-APAP 5-325 mg Tablet 1 TAB PO (02:07)
[2021-07-06 04:00] VITALS: BP 145/81; PULSE 59; RESP 18; TEMP 36.2; O2SAT 92
--- NOTE | 2021-07-06 06:40 | PM.PN ---
Subjective Subjective: Interval history: Postop day #1 status post dual-chamber pacemaker implantation. Uneventful night. Postop discomfort under good control. No concerns reported by nursing service. Interrogation this morning reveals proper functioning of his pacemaker system. Vitals/I&O/Wt Last Vital Signs Temp 97.2 F L 07/06/21 04:00 Pulse 59 L 07/06/21 04:00 Resp 18 07/06/21 04:00 BP 145/81 07/06/21 04:00 Pulse Ox 92 07/06/21 04:00 07/05/21 07/05/21 07/06/21 14:59 22:59 06:59 Intake Total 540 / 540 240 / 780 Output Total 5 / 5 Balance 535 / 535 240 / 775 Physical Exam Chest: COMMONS NORMALS: normal inspection of the chest OTHER: Outer compressive dressing removed. Inner operative dressing remains in place. No swelling or evidence for fluid collection. Minimal palpation discomfort. No evidence for infection. Data : 06/30/21 09:30 06/30/21 09:30 A&P Assessment and plan (1) Status post placement of cardiac pacemaker: POD #1 status post dual-chamber pacemaker implantation. Covering well. Plan: Will discharge to home today for scheduled follow-up [facility] in 1 week. Status: Acute Attestations Medical Necessity Statement*: Status post pacemaker implantation secondary to tachybradycardia syndrome. Time Spent in Patient Care: 16 - 35 minutes Coding Level of Care Code Acute Computer Information Systems Instructor for Wendie Mata Diagnoses Status post placement of cardiac pacemaker Z95.0
--- NOTE | 2021-07-06 06:49 | P.DS_ITS ---
Discharge Providers Date of Admission: 07/05/21 16:03 Date of Discharge: July 06, 2021 Attending Provider at Admission: Avtar William MD Attending Provider at Discharge: Avtar William MD Primary Care Provider: Nirmal Hines Diagnoses at Discharge Discharge Diagnosis (1) Status post placement of cardiac pacemaker: Status: Acute Reason for Visit Reason for Visit: Afib Hospital Course Hospital Course Ms. Segura is a pleasant 61-year-old female who was electively admitted for planned dual-chamber pacemaker implantation secondary to tachybradycardia syndrome currently undergoing treatment for control of rapid ventricular response with intermittent atrial fibrillation. Due to highly symptomatic bradycardia, Dr. Bernabe recommended pacemaker implantation. She was electively admitted on July 05 and underwent dual-chamber pacemaker implantation. She has convalesced overnight in the hospital where she remained stable. No arrhythmias reported. Pacemaker interrogation this morning reveals appropriate early function. She received prophylactic antibiotics. Pain has been under good control. No evidence for fluid collection or infection. She will be discharged home today in stable condition for schedule follow-up in [facility] clinic in 1 week. Physical Exam Chest: COMMONS NORMALS: normal inspection of the chest OTHER: Outer pressure dressing was removed. Inner operative dressing remains in place. No evidence for drainage or fluid collection. Minimal tenderness at site. Resp: COMMON NORMALS: normal respiratory effort, No use of accessory muscles and clear to auscultation bilaterally EFFORT & INSPECTION: Yes able to speak in complete sentences AUSCULTATION: clear to auscultation bilaterally Cardio: COMMON NORMALS: regular rate, regular rhythm and S1 normal heart sound present RATE: regular rate RHYTHM: regular rhythm HEART SOUNDS: S1 normal heart sound present Extremity: COMMON NORMALS: no clubbing, cyanosis or edema Discharge Data Data Completed and Pending: Pending at discharge Category Date Time Status C-arm FL for Pace maker Routine Exams 07/05/21 10:57 Taken XR chest 1V eyad ble [id number] Routine Exams 07/05/21 16:33 Taken Vancomycin Trough Timed Lab 07/07/21 13:00 Ordered Labs from last 24 hours 07/05/21 07/05/21 07/05/21 12:52 12:51 12:40 PT 13.40 INR 0.99 POC Glucose 117 H Urine Color Yellow Urine Appearance Clear Urine pH 8 H Ur Specific Gravit y 1.015 Urine Protein Neg Urine Glucose (UA) Norm Urine Ketones Negative Urine Blood Neg Urine Nitrate Negative Urine Bilirubin Neg Prot Sulfosalicyli c Acd Negative Urine Urobilinogen Norm Ur Leukocyte Abdia ase Negative Vitals: Last Vital Signs Temp 97.2 F L 07/06/21 04:00 Pulse 59 L 07/06/21 04:00 Resp 18 07/06/21 04:00 BP 145/81 07/06/21 04:00 Pulse Ox 92 07/06/21 04:00 Discharge Plan Discharge Patient Disposition: Home Condition: Stable Prescriptions: New hydrocodone-acetaminophen 5-325 mg tablet 1 tab PO Q6H PRN (Reason: pain) 4 Days Qty: 16 RF: 0 sulfamethoxazole-trimethoprim [Bactrim DS] 800-160 mg tablet 1 tab PO DAILY 3 Days Qty: 6 RF: 0 Continued magnesium citrate [Citrate of Magnesia] Solution 30 ml PO DAILY PRN (Reason: Constipation) RF: 0 ascorbic acid (vitamin C) 250 mg tablet 250 mg PO DAILY RF: 0 potassium chloride 10 mEq capsule, extended release 10 meq PO DAILY@09 RF: 0 simvastatin 40 mg tablet 40 mg PO DAILY@21 RF: 0 pantoprazole 40 mg tablet,delayed release (DR/EC) 40 mg PO DAILY@ RF: 0 lisinopril 10 mg tablet 10 mg PO DAILY@ RF: 0 montelukast 10 mg tablet 10 mg PO DAILY@ RF: 0 glipizide 5 mg tablet 5 mg PO DAILY@09 RF: 0 buspirone 10 mg tablet 10 mg PO BID@, RF: 0 furosemide 20 mg Tablet 20 mg PO DAILY@09 RF: 0 cholecalciferol (vitamin D3) [Vitamin D3] 25 mcg (1,000 unit) Capsule 25 mcg PO DAILY@09 RF: 0 calcium 500 mg Tablet 500 mg PO DAILY Qty: 0 RF: 0 ibuprofen 400 mg Tablet 400 mg PO BID PRN (Reason: Pain) RF: 0 zinc 50 mg Capsule 50 mg PO DAILY@09 RF: 0 fluticasone propionate 50 mcg/actuation [place],Suspension 2 spray INTRANASAL DAILY PRN (Reason: Allergy Symptoms) RF: 0 Eliquis 5 mg tablet 5 mg PO BID Qty: 0 RF: 0 levothyroxine 150 mcg tablet 137 mcg PO DAILY RF: 0 albuterol sulfate 90 mcg/actuation HFA aerosol inhaler 1 puff INHALATION Q6H PRN (Reason: Shortness Of Breath) RF: 0 sotalol 80 mg tablet 40 mg PO BID Qty: 14 RF: 0 Discharge Orders: Discharge Order (Routine); Ordered 07/06/21 Ordered By: Avtar William Referrals: [facility] [Provider Group] - 1 week (Pacemaker clinic) Discharge Diet: Usual diet Discharge Activity: Limit activity as instructed Patient Instructions: Opioid Safety Activity Restrictions/Additional Instructions: May remove surgical bandage tomorrow. May begin daily showers on , July 08. Dry incision completely after showers. May recover if desire to prevent irritation from clothing. No swimming or tub baths x2 weeks. No heavy lifting with left arm for 2 weeks Report any redness, swelling, drainage, fever, or increased pain. Please call [facility] to confirm follow-up appointment with Dr. Bernabe Discharge Attestations Time Spent in Discharge Care*: less than 30 min Specific Discharge Activities: educating patient, discussing with supportive employment case manager/social workers/dc planners, documenting/other paperwork and evaluating patient/reviewing data Status at Discharge: Cognitive status at discharge: cognitively intact , Behavioral status at discharge: cooperative , Functional status at discharge: independent ambulation Overall status at discharge: patient is back to baseline Quality Metrics Clinical Quality Measures During this hospital stay, did patient experience: None Coding Level of Care Code Acute Chg FW DC note Diagnoses Status post placement of cardiac pacemaker Z95.0
[2021-07-06 07:27] VITALS: BP 149/74; PULSE 59; RESP 17; TEMP 36.4; O2SAT 92
[2021-07-06] MEDS: BuSPIRONE 10 mg Tablet PO (07:56)
[2021-07-06] MEDS: sotalol 80 mg Tablet 40 MG PO (07:56)
[2021-07-06] MEDS: levothyroxine 150 mcg Tablet 137 MCG PO (07:56)
[2021-07-06] MEDS: potassium chloride ER 10 mEq Tablet PO (07:57)
[2021-07-06] MEDS: lisinopril 10 mg Tablet PO (07:57)
[2021-07-06] MEDS: FUROsemide 20 mg Tablet PO (07:57)
[2021-07-06] MEDS: pantoprazole DR 40 mg Tablet PO (07:57)
--- NOTE | 2021-07-06 08:57 | PC.NURSE ---
patient verbalized understanding of discharge instructions, home medications, and follow up appointments.
[2021-07-06 10:02] VITALS: BP 149/74; PULSE 59; RESP 17; TEMP 36.4; O2SAT 92
--- NOTE | 2021-07-08 11:36 | PC.SOCIAL ---
discharge follow up call made, spoke with patient. patient reports she is feeling great, taking very little hydrocodone. patient is taking bactrim daily as prescribed. discussed with patient lifting restrictions to left arm x2 weeks, no more than 5 lbs or a gallon of milk. patient verbalizes understanding. patient showered today, reports incision looks good, no redness, drainage or swelling. patient reports she is doing arm exercises but not lifting arm over head and is wearing her sling at bedtime. no questions voiced.
--- NOTE | 2021-07-09 16:10 | PC.RESP ---
SMOKING CESSATION AND PULMONARY REHAB INFORMATION SENT TO PATIENT.
== END 2021-07-06 09:50 | disposition home or self-care (01) ==
LOC: MEDSURG 16:04
PROVIDERS: Anesthesiology; Admitting Provider Thoracic Surgery (Cardiothoracic Vascular Surgery); PCP Clinical Nurse Specialist Adult Health; Visit Provider Thoracic Surgery (Cardiothoracic Vascular Surgery)
PROC: (CPT 33208; principal; 2021-07-05 11:50)
DX: I49.5 Sick sinus syndrome (principal); F17.210 Nicotine dependence, cigarettes, uncomplicated; I48.91 Unspecified atrial fibrillation; J44.9 Chronic obstructive pulmonary disease, unspecified; I10 Essential (primary) hypertension; I25.2 Old myocardial infarction; E11.9 Type 2 diabetes mellitus without complications; G47.30 Sleep apnea, unspecified; M81.0 Age-related osteoporosis without current pathological fracture; E78.5 Hyperlipidemia, unspecified
CPT/HCPCS: 33208; 36415; 36416; 71045; 76000; 80048; 81003; 82962; 85025; 85610; 96365; C1779; C1786; G0378; J2704; J3010; J3370; J7030

== ENCOUNTER → 2022-02-11 09:58 | Outpatient (BNVA) | payer MEDICARE, SELFPAY | PROVIDERS: Visit Provider Internal Medicine | DX: Z45.010 Encounter for checking and testing of cardiac pacemaker pulse generator [battery] (principal) | CPT/HCPCS: 93280 ==

== ENCOUNTER → 2022-03-31 14:22 | Outpatient (BNVA) | payer MEDICARE, SELFPAY | PROVIDERS: Visit Provider Internal Medicine | DX: I48.19 Other persistent atrial fibrillation (principal); Z79.01 Long term (current) use of anticoagulants; R00.1 Bradycardia, unspecified; E78.5 Hyperlipidemia, unspecified; Z95.0 Presence of cardiac pacemaker | CPT/HCPCS: 99214 ==

== ENCOUNTER 2022-04-14 13:31 | Outpatient (CLI) | payer MEDICARE, SELFPAY ==
--- NOTE | 2022-04-14 13:46 | MM_ITS ---
WS: [id number] BILATERAL 3D TOMOSYNTHESIS DIGITAL DIAGNOSTIC MAMMOGRAPHY WITH CAD CLINICAL INFORMATION: HX OF BREAST CA HISTORY: History of breast reduction COMPARISON: March 19, 2021 TECHNIQUE: Bilateral CC, MLO, and ML views. FINDINGS: Scattered fibroglandular densities bilaterally. Stable architectural distortion with coarse dystrophi c, punctate, and eggshell calcifications compatible with prior breast reduction. A few areas of incre ased calcification compared to previous. Parenchymal scarring RIGHT breast from prior lumpectomy. No suspicious focal mass, asymmetry, calcifications, or architectural distortion. No evidence of roderick gnancy. MM/[place] [id number] IMPRESSION: BI-RADS: 2-Benign FOLLOW UP: 1 Year Follow-up Recommend return to annual diagnostic mammography.
== END 2022-04-14 13:32 | disposition home or self-care (01) ==
LOC: RAD 13:35
PROVIDERS: Visit Provider Clinical Nurse Specialist Adult Health
DX: Z85.3 Personal history of malignant neoplasm of breast (principal)
CPT/HCPCS: 77062

== ENCOUNTER → 2022-05-16 13:14 | Outpatient (BNVA) | payer MEDICARE, SELFPAY | PROVIDERS: PCP Clinical Nurse Specialist Adult Health; Visit Provider Clinical Nurse Specialist Adult Health | DX: I10 Essential (primary) hypertension (principal); I48.91 Unspecified atrial fibrillation; E03.9 Hypothyroidism, unspecified | CPT/HCPCS: 85651; 86140 ==

== ENCOUNTER → 2022-10-14 10:12 | Outpatient (BNVA) | payer MEDICARE, SELFPAY | PROVIDERS: PCP Clinical Nurse Specialist Adult Health; Visit Provider Internal Medicine | DX: Z45.010 Encounter for checking and testing of cardiac pacemaker pulse generator [battery] (principal) | CPT/HCPCS: 93280 ==

== ENCOUNTER → 2022-11-11 09:46 | Outpatient (BNVA) | payer MEDICARE, SELFPAY | PROVIDERS: PCP Clinical Nurse Specialist Adult Health; Visit Provider Clinical Nurse Specialist Adult Health | DX: I48.19 Other persistent atrial fibrillation (principal); I10 Essential (primary) hypertension; E03.9 Hypothyroidism, unspecified; E83.42 Hypomagnesemia; E11.9 Type 2 diabetes mellitus without complications | CPT/HCPCS: 80053; 80061; 83036; 83735; 84443; 85025 ==

== ENCOUNTER → 2022-12-29 13:18 | Outpatient (BNVA) | payer MEDICARE, SELFPAY | PROVIDERS: PCP Clinical Nurse Specialist Adult Health; Visit Provider Internal Medicine | DX: I48.19 Other persistent atrial fibrillation (principal); R00.1 Bradycardia, unspecified; E78.5 Hyperlipidemia, unspecified; F17.200 Nicotine dependence, unspecified, uncomplicated; Z95.0 Presence of cardiac pacemaker; Z79.01 Long term (current) use of anticoagulants | CPT/HCPCS: 99214 ==

== ENCOUNTER 2023-03-04 22:33 | Emergency (ER) | payer MEDICARE, SELFPAY ==
[2023-03-04 22:34] VITALS: BP 218/94; PULSE 72; RESP 18; TEMP 36.8; O2SAT 98
--- NOTE | 2023-03-04 23:12 | XRR_ITS ---
PROCEDURE INFORMATION: Exam: XR Left Knee Exam date and time: 03/04/2023 11:17 PM Age: 62 years old Clinical indication: Pain; Knee; Left; Additional info: Fall with left knee bruising and pain TECHNIQUE: Imaging protocol: Radiologic exam of the left knee. Views: 3 views. COMPARISON: No relevant prior studies available. FINDINGS: Bones/joints: Left total knee replacement. Soft tissues: Normal. Vasculature: Moderate calcified peripheral vascular disease. XR/XR knee LT 3V* [id number] IMPRESSION: Left total knee replacement.
--- NOTE | 2023-03-04 23:12 | CTR_ITS ---
PROCEDURE INFORMATION: Exam: CT Head Without Contrast Exam date and time: 03/04/2023 11:40 PM Age: 62 years old Clinical indication: Injury or trauma; Fall; Blunt trauma (contusions or hematomas); Without loss of consciousness; Additional info: Fall with head injury, negative loss of consciousness TECHNIQUE: Imaging protocol: Computed tomography of the head without contrast. Radiation optimization: All CT scans at this facility use at least one of these dose optimization techniques: automated exposure control; mA and/or kV adjustment per patient size (includes targeted exams where dose is matched to clinical indication); or iterative reconstruction. REPORTING DATA: Count of CT and Cardiac NM exams in prior 12 months: This patient has received 0 known CTs and 0 known cardiac nuclear medicine studies in the 12 months prior to the current study. COMPARISON: No relevant prior studies available. RADIATION DOSE METRICS: Total DLP (mGy-cm): 1109.95 FINDINGS: Brain: Severe calcified intracranial atherosclerotic vessel disease. Cerebral ventricles: No ventriculomegaly. Paranasal sinuses: Mild left sphenoid sinus disease. Mild left maxillary sinus disease. Mild bilateral ethmoid sinus disease. Mastoid air cells: Visualized mastoid air cells are well aerated. Bones/joints: Unremarkable. No acute fracture. Soft tissues: Soft tissue swelling/hematoma over the left forehead. CT/CT head wo con* [id number] IMPRESSION: 1. Soft tissue swelling/hematoma over the left forehead. 2. Mild bilateral paranasal sinus disease versus posttraumatic fluid. 3. No acute intracranial findings.
--- NOTE | 2023-03-04 23:12 | CTR_ITS ---
PROCEDURE INFORMATION: Exam: CT Cervical Spine Without Contrast Exam date and time: 03/04/2023 11:43 PM Age: 62 years old Clinical indication: Injury or trauma; Fall; Blunt trauma; Additional info: Fall with head injury and neck pain TECHNIQUE: Imaging protocol: Computed tomography of the cervical spine without contrast. Radiation optimization: All CT scans at this facility use at least one of these dose optimization techniques: automated exposure control; mA and/or kV adjustment per patient size (includes targeted exams where dose is matched to clinical indication); or iterative reconstruction. REPORTING DATA: Count of CT and Cardiac NM exams in prior 12 months: This patient has received 0 known CTs and 0 known cardiac nuclear medicine studies in the 12 months prior to the current study. COMPARISON: CT head wo con* [id number] 03/04/2023 11:40 PM RADIATION DOSE METRICS: Total DLP (mGy-cm): 517.47 FINDINGS: Bones/joints: Mild to moderate multilevel spine degenerative changes including degenerative disc disease, spondylosis and facet degenerative changes. Mild dextroscoliosis. Paranasal sinuses: Mild bilateral maxillary sinus disease. Mild bilateral ethmoid sinus disease. Mild bilateral sphenoid sinus disease. Oral cavity: Complete fatty atrophy of the right tongue and partial fatty atrophy of the anterior left tongue. Lungs: Lung apices are normal. Vasculature: Severe calcified carotid artery disease. Soft tissues: Unremarkable. CT/CT cervical spin wo con* [id number] IMPRESSION: 1. Complete fatty atrophy of the right tongue and partial fatty atrophy of the anterior left tongue. 2. No acute C-spine findings.
--- NOTE | 2023-03-04 23:13 | W.ED.HEATRA ---
HPI - Head Injury General: Chief complaint: Head Injury Stated complaint: Head Injury Time Seen by Provider: 03/04/23 22:43 History of Present Illness: Patient is a 62-year-old female who comes to the ED with head injury after fall. Fall injury occurred approximately couple hours ago. Patient states that she was at [employer] and was walking down a erika path. She slipped and fell and the left side of her forehead hit a rock. She denies any loss of consciousness. Initially she had a little bit of nausea and dizziness but that has subsided. She has a hematoma and abrasion on left side of forehead. She applied a cold pack on head after fall. She also hit her left knee on the ground and she has some pain and bruising there as well. Her main complaint is head pain right where hematoma is that on the left side of forehead. She rates the pain currently 9 out of 10. Denies any vision changes, numbness tingling or weakness to 1 side of her body or face. Patient does states she takes Eliquis. Associated symptoms: Reports nausea (Resolved before arriving to ED); Deny neck pain or vomiting Review of Systems Const: Denies: fever(s), chills or fatigue Eyes: Denies: change in vision or eye discomfort ENMT: Denies: throat pain, odynophagia, nasal discharge or nasal congestion Card: Denies: chest pain, palpitations, edema, swelling of feet/ankles, dyspnea on exertion or orthopnea Resp: Denies: dyspnea, productive cough or non-productive cough GI: Reports: nausea (Resolved before arriving to ED); Denies: abdominal pain, vomiting, diarrhea, constipation or hematochezia : Denies: flank pain, dysuria or hematuria Musc: Reports: extremity pain (Left knee pain); Denies: neck pain, back pain or extremity swelling Skin/Breast: Denies: rash or new lesions Neuro: Reports: headache(s) and dizziness (Resolved before arriving to ED); Denies: numbness in extremities or weakness in extremities PFS ED PFSH: Medical History Atrial fibrillation History of COPD History of degenerative joint disease History of depression History of diverticulosis History of fibromyalgia History of fracture of lower extremity Hx of chronic congestive heart failure Hx of colonic polyps Hx of coronary artery disease Hx of diastolic dysfunction Hx of gastroesophageal reflux (GERD) Hx of gout Hx of hemorrhoids Hx of myocardial infarction Hx of nicotine dependence Hx of obesity Hx of osteoporosis Hx of simple renal cyst Hx of sleep apnea Hx of type 2 diabetes mellitus Hypertension Surgical History History of coronary artery stent placement History of total left knee replacement History of total right knee replacement (TKR) Hx of breast reduction, elective Hx of colonoscopy Hx of coronary angioplasty Hx of esophagogastroduodenoscopy Hx of skin graft Hx of tonsillectomy Status post placement of cardiac pacemaker Family History Other Family history non-contributory Social History Smoking and tobacco status: current every day smoker Alcohol intake: never Substance/Drug Use: never Physical Exam Const: COMMON NORMALS: no acute distress, patient oriented x3 and alert GENERAL APPEARANCE: cooperative and comfortable HENMT: COMMON NORMALS: normocephalic HEAD & SCALP: normocephalic, abrasion left frontal Head abrasion size: 1 cm and hematoma left frontal Head hematoma size: 2 cm; no Gaitan's sign and no raccoon eyes MOUTH: Normal oral and palatal mucosa present THROAT: posterior oropharynx normal and uvula midline Eye: COMMON NORMALS: Equal, round and reactive pupils present and EOMs intact bilaterally GENERAL EYE: appearance normal, both eyes and all related structures PUPIL: Yes Equal, round and reactive pupils present Neck/C-Spine: COMMON NORMALS: supple GENERAL: Yes normal visual inspection CERVICAL SPINE: Yes Cervical spine tenderness C6 and C7 and Yes Paracervical muscle tenderness bilateral Lymph: LYMPHATIC: no lymphadenopathy noted Resp: COMMON NORMALS: normal respiratory effort, No retractions, No use of accessory muscles and clear to auscultation bilaterally AUSCULTATION: clear to auscultation bilaterally Cardio: COMMON NORMALS: regular rate, regular rhythm, S1 normal heart sound present, S2 normal heart sound present, No gallops present (Cardio), No clicks present (Cardio), No murmurs present (Cardio) and Peripheral pulses 2+ throughout RATE: regular rate RHYTHM: regular rhythm HEART SOUNDS: S1 normal heart sound present and S2 normal heart sound present PERIPHERAL PULSES: Peripheral pulses 2+ throughout GI: COMMON NORMALS: Normal to inspection, nondistended, normoactive bowel sounds present, Soft to palpation, non-tender and no masses PALPATION: Yes Soft to palpation : COMMON NORMALS: Yes no CVA tenderness BLADDER/KIDNEY EXAM: Yes no CVA tenderness Back/Pelvis: COMMON NORMALS: no CVA tenderness Extremity: NARRATIVE EXTREMITY EXAM: Left knee?some ecchymosis and mild swelling. GENERAL: Yes normal exam except as noted Neuro: COMMON NORMALS: patient oriented x3, CN's II-XII intact bilaterally, moves all extremities, no focal motor deficits and no sensory deficits noted SENSORIUM/ORIENTATION: Yes alert COORDINATION/BALANCE: [id number] test normal SENSORY EXAM: Yes extremities (intact) MOTOR EXAM: 5/5 motor strength present throughout COORDINATION: [id number] test normal Skin: COMMON NORMALS: no rashes or lesions noted GENERAL SKIN EXAM: no rashes or lesions noted and dry skin Course Vital Signs: Vital signs: Vital Signs Temperature 98.2 F 03/04/23 22:34 Pulse Rate 62 03/05/23 00:07 Respiratory Rate 16 03/05/23 00:07 Blood Pressure 168/81 03/05/23 00:07 Pulse Oximetry 96 03/05/23 00:07 Oxygen Delivery Me thod Room Air 03/04/23 22:34 MDM - Head Injury Medcial Decision Making Patient is a 62-year-old female who comes to the ED with head injury after fall. Fall injury occurred approximately couple hours ago. Patient states that she was at [facility] and was walking down a erika path. She slipped and fell and the left side of her forehead hit a rock. She denies any loss of consciousness. Initially she had a little bit of nausea and dizziness but that has subsided. She has a hematoma and abrasion on left side of forehead. She applied a cold pack on head after fall. She also hit her left knee on the ground and she has some pain and bruising there as well. Her main complaint is head pain right where hematoma is that on the left side of forehead. She rates the pain currently 9 out of 10. Denies any vision changes, numbness tingling or weakness to 1 side of her body or face. Patient does states she takes Eliquis. Vitals are stable. Neuro exam shows no deficits. She is ecchymosis and mild swelling to left knee. Patient has a hematoma on left forward with the superficial abrasion. She has some paracervical muscle tenderness at the C-spine tenderness as well. Rest of exam is benign. CT cervical spine showed no acute fractures or findings. CT of head showed no acute findings. Left knee x-ray showed total knee replacement with no damage to hardware. Patient was stable for discharge home and diagnosed with minor head injury and contusion of left knee. She was told to follow-up with her PCP in the next week for reevaluation. Return to ED precautions given. Patient understood and agreed with plan. Lab Data Radiology Impressions Cervical Spine CT 03/04/23 23:12 IMPRESSION: 1. Complete fatty atrophy of the right tongue and partial fatty atrophy of the anterior left tongue. 2. No acute C-spine findings. Head CT 03/04/23 23:12 IMPRESSION: 1. Soft tissue swelling/hematoma over the left forehead. 2. Mild bilateral paranasal sinus disease versus posttraumatic fluid. 3. No acute intracranial findings. Knee X-Ray 03/04/23 23:12 IMPRESSION: Left total knee replacement. Discharge Plan Discharge Patient Disposition: Home Clinical Impression: Minor head injury without loss of consciousness Qualifiers: Encounter type: initial encounter Qualified Code(s): S09.90XA - Unspecified injury of head, initial encounter Contusion of knee, left Qualifiers: Encounter type: initial encounter Qualified Code(s): S80.02XA - Contusion of left knee, initial encounter Condition: Stable Prescriptions: No Action ascorbic acid (vitamin C) 250 mg tablet 250 mg PO DAILY sotalol 80 mg tablet 80 mg PO BID buspirone 10 mg tablet 10 mg PO BID@09,21 Qty: 180 3RF fluoxetine 10 mg capsule 10 mg PO BID Rx Instructions: administer in the morning and at noon/midday glipizide 5 mg tablet 5 mg PO DAILY@09 Qty: 90 3RF levothyroxine 175 mcg tablet 175 mcg PO DAILY Qty: 90 3RF furosemide 20 mg tablet 20 mg PO DAILY@09 Qty: 90 3RF Eliquis 5 mg tablet 5 mg PO BID Qty: 60 11RF simvastatin 40 mg tablet 40 mg PO DAILY@21 pantoprazole 40 mg tablet,delayed release (DR/EC) 40 mg PO DAILY@09 lisinopril 10 mg tablet 10 mg PO DAILY@09 montelukast 10 mg tablet 10 mg PO DAILY@21 cholecalciferol (vitamin D3) [Vitamin D3] 25 mcg (1,000 unit) Capsule 25 mcg PO DAILY@09 calcium 500 mg Tablet 500 mg PO DAILY Qty: 0 ibuprofen 400 mg Tablet 400 mg PO BID PRN (Reason: Pain) zinc 50 mg Capsule 50 mg PO DAILY@09 fluticasone propionate 50 mcg/actuation [place],Suspension 2 spray INTRANASAL DAILY PRN (Reason: Allergy Symptoms) albuterol sulfate 90 mcg/actuation HFA aerosol inhaler 1 puff INHALATION Q6H PRN (Reason: Shortness Of Breath) Discharge Orders: Discharge ED (Routine); Ordered 03/05/23 Ordered By: Mika Cantu Referrals: Nirmal Hines [employer] [Primary Care Provider] - Discharge Diet: Regular Discharge Activity: Increase activity as tolerated Patient Instructions: Head Injury (ED) Activity Restrictions/Additional Instructions: Follow-up with medical provider as directed in the next 5 to 7 days for reevaluation. Continue taking all home medications as prescribed. Return to the ER or your medical provider if condition worsens. Please read and understand discharge instructions. Thank you for choosing [facility] for your healthcare needs today. Please realize this is an emergency room and that we are providing you with a medical screening exam and this may not be complete and all inclusive of all the testing and or work up that you may need to determine your ailment or severity of your illness. It is very important that you follow up as instructed or that you return to the Emergency Department should you have concerns or if your condition changes or worsens in any way. Coding Level of Care Code ED Web Support Engineer for Wendie Mata
[2023-03-05 00:07] VITALS: BP 168/81; PULSE 62; RESP 16; O2SAT 96
== END 2023-03-05 00:20 | disposition home or self-care (01) ==
PROVIDERS: Emergency Provider Physician Assistant; PCP Clinical Nurse Specialist Adult Health
DX: S00.81XA Abrasion of other part of head, initial encounter (principal); S00.83XA Contusion of other part of head, initial encounter; S80.02XA Contusion of left knee, initial encounter; S09.90XA Unspecified injury of head, initial encounter; W01.198A Fall on same level from slipping, tripping and stumbling with subsequent striking against other object, initial encounter; Y93.01 Activity, walking, marching and hiking; Y92.89 Other specified places as the place of occurrence of the external cause; Z79.01 Long term (current) use of anticoagulants
CPT/HCPCS: 70450; 72125; 73562; 99284

== ENCOUNTER → 2023-07-27 13:08 | Outpatient (BNVA) | payer MEDICARE, SELFPAY | PROVIDERS: PCP Clinical Nurse Specialist Adult Health; Visit Provider Physician Assistant | DX: M79.641 Pain in right hand (principal); G56.01 Carpal tunnel syndrome, right upper limb; G56.21 Lesion of ulnar nerve, right upper limb | CPT/HCPCS: 73130; 99204 ==

== ENCOUNTER → 2023-08-15 14:37 | Outpatient (BNVA) | payer MEDICARE, SELFPAY | PROVIDERS: PCP Clinical Nurse Specialist Adult Health; Visit Provider Specialist | DX: G56.01 Carpal tunnel syndrome, right upper limb (principal) | CPT/HCPCS: 99203; 95910 ==

== ENCOUNTER 2023-09-06 09:30 | Day surgery (SDC) | payer MEDICARE, SELFPAY ==
[2023-09-06] VITALS (11 sets, daily range): BP systolic 118–164; BP diastolic 55–89; PULSE 62–101; RESP 12–166; TEMP 35.8–36.3; O2SAT 90–98; BMI 34.7
[2023-09-06] MEDS: ketorolac 30 mg/mL INJ IVP (09:59)
[2023-09-06] MEDS: scopolamine 1.5 Patch 1 PATCH TRANSDERMA (10:00)
[2023-09-06] MEDS: sodium chloride 0.9% 1,000 ML 30 ML IV (10:00)
[2023-09-06] MEDS: acetaminophen 1,000 MG/100 ML PIGGYBACK 400 MG IV (10:01)
[2023-09-06 10:02] LABS: Glucose Point of Care 132 mg/dL (70-110)
--- NOTE | 2023-09-06 10:20 | ECG_ITS ---
[facility] Test Date: 2023-09-06 Pat Name: Trena Segura Department: Room: Gender: Female Broadcast Operations Technician: : 1960 Requested By: Miles Cantu Order Number: [id number] John MD: Babita Anderson M.D. Measurements Intervals [place] Rate: 64 P: 134 MD: 140 QRS: -57 QRSD: 144 T: 27 QT: 441 QTc: 456 Interpretive Statements ELECTRONIC ATRIAL PACEMAKER RIGHT BUNDLE BRANCH BLOCK [120+ ms QRS DURATION, UPRIGHT V1, 40+ ms S IN I/aVL/V4/V5/V6] LEFT ANTERIOR FASCICULAR BLOCK [QRS AXIS <= -45, QR IN I, RS IN II] LEFT VENTRICULAR HYPERTROPHY AND ST-T CHANGE [VOLTAGE CRITERIA PLUS ST/T ABNORMALITY] POSSIBLE SEPTAL MYOCARDIAL INFARCTION , PROBABLY OLD [30 ms Q WAVE IN V1/V2] Compared to ECG 05/29/2021 13:24:22 Left anterior fascicular block now present Atrial flutter no longer present Left-axis deviation no longer present ST (T wave) deviation still present Myocardial infarct finding still present Electronically Signed On 09-06-2023 21:52:07 AMBULANCE DRIVER by Babita Anderson M.D. [id number]
[2023-09-06 10:32] LABS: Basophils % 0.4 %; Eosinophils # 0.3 10^3/uL (0.0-0.8); Eosinophils % 5.9 %; Hematocrit 44.1 % (36-47); Lymphocytes # 1.3 10^3/uL (0.8-4.8); Lymphocytes % 23.6 %; Mean Corpuscular HGB Conc 32.2 g/dL (30-55); Mean Corpuscular Volume 86.8 fl (85-98); Mean Platelet Volume 11.3 fL (7.4-10.4); Monocytes # 0.5 10^3/uL (0.2-0.9); Monocytes % 9.7 %; Neutrophils # 3.24 10^3/uL (1.8-7.7); Neutrophils % 60.2 %; Nucleated Red Blood Cells % 0 %; Platelet Count 159 10^3/cmm (157-399); Red Blood Count 5.08 10^6/uL (3.85-5.65); Red Cell Distribution Width 13.3 % (12.1-15.1); White Blood Count 5.38 10^3/uL (3.29-11.43)
--- NOTE | 2023-09-06 10:38 | W.PM.OPSFHP ---
Same Day Surgery H&P Indication for Procedure/HPI DATE OF PROCEDURE: September 06, 2023 CHIEF COMPLAINT/INDICATIONFOR SURGICAL PROCEDURE: Right carpal tunnel syndrome, right cubital tunnel syndrome PREOP DIAGNOSIS: Right carpal tunnel syndrome, right cubital tunnel syndrome PLANNED PROCEDURE: Operation Date: 09/06/23 11:20 Proposed Procedures p Carpal Tunnel Release(Right) - Miles Pepe, DO s Cubital Tunnel Release(Right) - Miles Pepe, DO s Ulnar Nerve Transposition :right(Right) - Miles [place], DO Medications/Allergies* Home Medications Medication Instructions Recorded Confirmed Type lisinopril 10 mg tablet 10 mg PO DAILY@09/25/19 09/05/23 History montelukast 10 mg tablet 10 mg PO DAILY@09/25/19 09/05/23 History pantoprazole 40 mg tablet,delayed 40 mg PO DAILY@09/25/19 09/05/23 History release simvastatin 40 mg tablet 40 mg PO DAILY@09/25/19 09/05/23 History calcium 500 mg tablet 500 mg PO DAILY ##0 11/24/20 09/05/23 History cholecalciferol (vitamin D3) 25 25 mcg PO DAILY@11/24/20 09/05/23 History mcg (1,000 unit) capsule (Vitamin D3) ibuprofen 400 mg tablet 400 mg PO BID PRN 11/24/20 09/05/23 History zinc 50 mg capsule 50 mg PO DAILY@11/24/20 09/05/23 History fluticasone propionate 50 2 spray intranasal DAILY PRN 11/25/20 09/05/23 History mcg/actuation nasal Allergy Symptoms spray,suspension ascorbic acid (vitamin C) 250 mg 250 mg PO DAILY 05/28/21 09/05/23 History tablet albuterol sulfate 90 mcg/actuation 1 puff inhalation Q6H PRN 05/29/21 09/05/23 History aerosol inhaler Shortness Of Breath fluoxetine 10 mg capsule 10 mg PO BID 06/27/22 09/05/23 History sotalol 80 mg tablet 80 mg PO BID 11/11/22 09/05/23 History Allergies/Adverse Reactions Allergy/AdvReac Type Severity Reaction Status Date / Time latex Allergy Unknown Unknown Verified 08/15/23 16:47 Penicillins Allergy Unknown Unknown Verified 08/15/23 16:47 adhesive tape Allergy RASH Verified 08/15/23 16:47 Current Medications: Generic Name Dose Route Start Last Admin Trade Name Freq PRN Reason Stop Dose Admin Sodium Chloride 1,000 mls @ 30 mls/hr 09/06/23 09:45 09/06/23 10:00 Sodium Chloride 0.9% IV 09/07/23 09:44 30 mls/hr .Q24H LARA Administration Pertinent History/Comorbid Conditions* Medical History (Updated 08/15/23 @ 21:42 by Nicolle Murray MD) Hypertension Hx of sleep apnea Hx of colonic polyps Hx of simple renal cyst History of diverticulosis Hx of hemorrhoids Hx of coronary artery disease Hx of myocardial infarction History of COPD History of degenerative joint disease Hx of osteoporosis Hx of gout Hx of gastroesophageal reflux (GERD) History of depression History of fibromyalgia Hx of diastolic dysfunction Hx of chronic congestive heart failure Hx of obesity Hx of nicotine dependence Hx of type 2 diabetes mellitus History of fracture of lower extremity Atrial fibrillation Surgical History (Updated 07/06/21 @ 06:42 by Avtar William MD) Status post placement of cardiac pacemaker Hx of coronary angioplasty Hx of skin graft Hx of tonsillectomy History of coronary artery stent placement Hx of breast reduction, elective History of total left knee replacement History of total right knee replacement (TKR) Hx of colonoscopy Hx of esophagogastroduodenoscopy Family History (Updated 11/24/20 @ 00:40 by Gracia Santiago MD) Family history non-contributory Social History Smoking and tobacco/nicotine status: current every day tobacco/nicotine user Alcohol intake: never Substance/Drug Use: never Pertinent Exam Findings alert, oriented x 3, operative site marked and procedure specific exam findings Patient has positive Tinel's at the elbow as well as at the wrist consistent with right carpal tunnel right cubital tunnel syndrome, positive median nerve compression test at the wrist as well Recommendations Surgery/Procedure today Other Plans: Plan to proceed to the OR today with right carpal tunnel release and right cubital tunnel release with possible ulnar nerve transposition. She had recently since her last visit had a nerve conduction study which confirmed these preoperative findings of right carpal tunnel syndrome and right cubital tunnel syndrome. She understands these and after procedure the risk benefits complication alternatives surgery risk of surgery include not limited to make it better make it worse injury to nerves vessels or tendons, wound complications, persistent numbness and tingling and weakness of the hands. Patient understands and agrees with current plan. All questions answered. Coding Level of Care Code Acute Code for Chg Esperanza
--- NOTE | 2023-09-06 10:49 | P.ANESASSM_ITS ---
Pre-Anesthetic Assessment Height/Weight: Height 1.57 m Weight 86.183 kg Temp Pulse Resp BP Pulse Ox O2 Del Method 96.5 F L 101 H 17 164/77 95 Room Air 09/06/23 09:47 09/06/23 09:47 09/06/23 09:47 09/06/23 09:47 09/06/23 09:47 09/06/23 09:48 Preop Diagnosis: Right carpal tunnel syndrome, right cubital tunnel syndrome Operation Date: 09/06/23 11:20 Proposed Procedures p Carpal Tunnel Release(Right) - Miles Pepe, DO s Cubital Tunnel Release(Right) - Miles [place], DO s Ulnar Nerve Transposition :right(Right) - Miles [place], DO Familial anesthetic complications: None Was Beta Kiesha taken within 24 hours: N/A Was Clonidine taken within 24 hours: N/A Last intake: Intake Last Liquid Date 09/05/23 Last Liquid Time 21:00 Last Solid Date 09/05/23 Last Solid Time 21:00 Social Tobacco and No alcohol Exam alert, oriented x 3, clear to auscultation bilaterally and regular rate & rhythm Airway Mallampati: Class II Dentition: false CV/HEM Atrial Fibrillation, Coronary Artery Disease (stent) and Hypertension pacemaker (no defibrillator) for Sinus node dysfunction Metabolic Diabetes Mellitus and Thyroid Disease Anesthetic Plan ASA status: 4 Anesthesia: MAC Risk of > 500 ml blood loss (7ml/kg in children): No Medications/Allergies Home Medications Medication Instructions Recorded Confirmed Last Taken Type lisinopril 10 mg tablet 10 mg PO DAILY@09/25/19 09/05/23 07/04/21 History montelukast 10 mg tablet 10 mg PO DAILY@09/25/19 09/05/23 07/04/21 History pantoprazole 40 mg tablet,delayed 40 mg PO DAILY@09/25/19 09/05/23 07/04/21 History release simvastatin 40 mg tablet 40 mg PO DAILY@09/25/19 09/05/23 07/04/21 History calcium 500 mg tablet 500 mg PO DAILY ##0 11/24/20 09/05/23 07/04/21 History cholecalciferol (vitamin D3) 25 25 mcg PO DAILY@11/24/20 09/05/23 07/04/21 History mcg (1,000 unit) capsule (Vitamin D3) ibuprofen 400 mg tablet 400 mg PO BID PRN Pain 11/24/20 09/05/23 07/02/21 History zinc 50 mg capsule 50 mg PO DAILY@09 11/24/20 09/05/23 07/04/21 History fluticasone propionate 50 2 spray intranasal DAILY PRN 11/25/20 09/05/23 Unknown History mcg/actuation nasal Allergy Symptoms spray,suspension ascorbic acid (vitamin C) 250 mg 250 mg PO DAILY 05/28/21 09/05/23 07/04/21 History tablet albuterol sulfate 90 mcg/actuation 1 puff inhalation Q6H PRN 05/29/21 09/05/23 07/03/21 History aerosol inhaler Shortness Of Breath fluoxetine 10 mg capsule 10 mg PO BID 06/27/22 09/05/23 Unknown History glipizide 5 mg tablet 5 mg PO DAILY@ #90 tabs 11/10/22 09/05/23 Unknown Rx buspirone 10 mg tablet 10 mg PO BID@ #180 tabs 11/11/22 09/05/23 Unknown Rx sotalol 80 mg tablet 80 mg PO BID 11/11/22 09/05/23 Unknown History furosemide 20 mg tablet 20 mg PO DAILY@ #90 tabs 11/15/22 09/05/23 Unknown Rx levothyroxine 175 mcg tablet 175 mcg PO DAILY #90 tabs 05/03/23 09/05/23 Unknown Rx apixaban 5 mg tablet (Eliquis) 5 mg PO BID #90 tabs 07/19/23 09/05/23 09/03/23 Rx Allergies Allergy/AdvReac Type Severity Reaction Status Date / Time latex Allergy Unknown Unknown Verified 08/15/23 16:47 Penicillins Allergy Unknown Unknown Verified 08/15/23 16:47 adhesive tape Allergy RASH Verified 08/15/23 16:47 Current Medications Generic Name Dose Route Start Last Admin Trade Name Freq PRN Reason Stop Dose Admin Sodium Chloride 1,000 mls @ 30 mls/hr 09/06/23 09:45 09/06/23 10:00 Sodium Chloride 0.9% IV 09/07/23 09:44 30 mls/hr .Q24H LARA Administration PFSH Anesthesia Medical History Atrial fibrillation History of COPD History of degenerative joint disease History of depression History of diverticulosis History of fibromyalgia History of fracture of lower extremity Hx of chronic congestive heart failure Hx of colonic polyps Hx of coronary artery disease Hx of diastolic dysfunction Hx of gastroesophageal reflux (GERD) Hx of gout Hx of hemorrhoids Hx of myocardial infarction Hx of nicotine dependence Hx of obesity Hx of osteoporosis Hx of simple renal cyst Hx of sleep apnea Hx of type 2 diabetes mellitus Hypertension Surgical History History of coronary artery stent placement History of total left knee replacement History of total right knee replacement (TKR) Hx of breast reduction, elective Hx of colonoscopy Hx of coronary angioplasty Hx of esophagogastroduodenoscopy Hx of skin graft Hx of tonsillectomy Status post placement of cardiac pacemaker Family History Other Family history non-contributory Social History Smoking and tobacco/nicotine status: current every day tobacco/nicotine user Alcohol intake: never Substance/Drug Use: never Data Anesthesia 09/06/23 09:56 09/06/23 09:56 Short CBC 09/06/23 Range/Units 09:56 WBC 5.38 (3.29-11.43) 10^3/uL Hgb 14.20 (11.27-16.99) g/dL Hct 44.1 (36-47) % MCV 86.8 (85-98) fl Plt Count 159 (157-399) 10^3/cmm Neut % (Auto) 60.2 % Neut # (Auto) 3.24 (1.8-7.7) 10^3/uL Cardiac Studies: 2 Echocardiogram 11/25/20 Cardiac Event Monitor 12/08/20
[2023-09-06 10:59] LABS: Anion Gap 16.4 (5-19); Blood Urea Nitrogen 11 mg/dL (8-23); Calcium 9.5 mg/dL (8.5-10.5); Carbon Dioxide 24 mmol/L (22-29); Chloride 103 mmol/L (98-107); Creatinine Clr Calc Pharmacy 71.4235; Glucose 142 mg/dL (65-115); Osmolality Calculated 290 mOsm/kg (285-295); Potassium 4.4 mmol/L (3.5-5.1); Sodium 139 mmol/L (136-145)
[2023-09-06] MEDS: ceFAZolin 2,000 MG in sodium chloride 0.9% (plus) 50 ML 100 MG IV (11:16)
[2023-09-06] MEDS: ROPivacaine 0.5% SDV 30 mL 25 MG INJECTION (11:50)
[2023-09-06] MEDS: lidocaine-epi 2% 20 mL INJ INJECTION (11:51)
--- NOTE | 2023-09-06 12:31 | P.OP_ITS ---
Operative Report Date of procedure: September 06, 2023 Surgeon: Miles Cantu DO Spouter: Mika Cantu PA-C: PA was necessary for assistance in this case with hand positioning to execute the procedure, retraction and protection of neurovascular structures as well as to assist with wound closure and dressing application. Procedure: Preoperative diagnosis: Right carpal tunnel syndrome Right cubital tunnel syndrome postop Diagnosis: Same, And subluxating right ulnar nerve Procedure done: Right carpal tunnel release Right?cubital tunnel tunnel release (ulnar nerve decompression at elbow) Right ulnar nerve neurolysis and transposition Surgeon: Miles Cantu DO Estimated blood loss: 5 mL Tourniquet? 40 minutes IV fluids: 400 mL Complications: None Findings: See operative report narrative Condition: stable Disposition: same day Brief History: Patient's been seen and worked up in the outpatient setting and findings consistent with preoperative diagnosis.? Patient has right carpal tunnel syndrome as well as right?cubital tunnel syndrome which has been worked up in the outpatient setting has physical exam findings consistent with this as well as confirmatory nerve conduction/EMG nerve conduction study consistent with diagnosis.? Patient's failed conservative treatment.? As result through shared decision making agreed to proceed with? right carpal tunnel and right?cubital tunnel release possible transposition we talked about treatment options as far as nonoperative and operative intervention.? Understands risk benefits complica tion alternatives surgical nonsurgical treatment options.? Understanding his risks he agrees to proceed with surgical intervention. Understanding these risks he agrees to proceed with surgery.? Consent obtained in office. Procedure: Patient seen evaluate in the preoperative holding area.? Consent was reviewed and signed with patient.? Correct extremity marked.? Patient seen evaluated by anesthesia department once cleared for surgery was then taken back to the operative suite placed in supine position all bony prominences well-padded patient properly secured to bed.? right upper extremity placed onto armboard.? Nonsterile tourniquet applied right upper arm.? Patient then underwent anesthesia per the anesthesia department.? Patient's right upper extremity was then prepped and draped in standard orthopedic fashion.? Final timeout performed.? Patient received appropriate preoperative antibiotics. Esmarch was used exsanguinate the right upper extremity.? Tourniquet was insufflated to 250 mmHg. I started with the carpal tunnel release first.? I made a standard open carpal tunnel release starting with the distal most extent in the palm at the Juan's cardinal line and the incision line was made in line with the fourth ray and ended just distal to the wrist crease.? Sharp scalpel incision was made through skin and subcutaneous tissue I then utilizing self retainer then began to dissect with dissection scissors split longitudinally the palmar fascia.? Next I then utilizing my assistant professor of english [employer] retractors subsequently utilizing scalpel feathered through the palmaris brevis as well as through the transverse carpal ligament distally.? Once I encountered the floor of the transverse carpal ligament and entered into the carpal tunnel I then switched to dissection scissors.? Carefully released the distal extent of the transverse carpal ligament to the palmar fat.? Care was to protect the recurrent branch and not injured this during this part of the case.? Next I then placed a [place] underneath the transverse carpal ligament proximally to protect the nerve in the carpal tunnel contents.? And then I subsequently under loupe magnification utilize my dissection scissors to release the transverse carpal ligament into the antebrachial fascia under direct visualization with care to keep my scissors with a curved ulnarly away from the palmar cutaneous branch.? The transverse carpal was then completely decompressed proximally and a [place] was then placed both distally and proximally throughout the carpal tunnel and had complete decompression of the nerve.? The nerve did appear to have hourglass shape as it went through the carpal tunnel.? With significant irritation noted around the nerve.? No masses were noted within the contents of the carpal tunnel.? This completed the carpal tunnel release and then I subsequently irrigated the wound bed and placed a wet Ray-Sona into the incision for later closure. Next marked out the landmarks of the right elbow of the medial epicondyle and olecranon and made a curvilinear incision following the course of the ulnar nerve at the medial aspect of the elbow.? Sharp scalpel incision was made through skin and subcutaneous tissue.? Next I switched to Littler dissection scissors and spread in plane of the medial antebrachial cutaneous nerve branching which was protected throughout this part of the dissection.? Then I directly came down over the fascia and identified the 2 heads of the FCU fascia and split this right in the middle and subsequently identified my ulnar nerve distally.? This was then completely released distally under direct visualization and loupe magnification.? Once the nerve was then identified I then subsequently tracked this proximally and released this through Dupont's ligament as well as complete decompression of the nerve proximally all the way past the intermuscular septum.? The nerve was completely released and decompressed both proximally and distally.? Ulnar nerve neurolysis performed and completed both proximally and distally with dissection scissors.?At this point in time by in situ release was completed I then subsequently took the elbow through range of motion and subluxation was noted over the medial epicondyle and plan for ulnar nerve?transposition?was made.? ?I thoroughly irrigated the nerve throughout the case to prevent it from drying out. Of note the ulnar nerve had significant irritation and inflammation.? Next while protecting the nerve as well as care to not injure any venous structures I then excised the intermuscular septum proximally with bipolar electrocautery.? This allowed for there to be no entrapment proximally with my?transposition.? Next I then performed my standard Z- flap into the fascia.? This created a large thick fascial band that would be sutured to secure the ulnar nerve when its been transposed.? Once the incision was made just through the fascia I then mobilized just the fascia and freed the muscle belly off of this.? I then sequentially excised the T and Y shaped fascial bands throughout the flexor pronator mass to prevent any type of bandage strip structure irritating the?transposition.? At this point I had only soft tissue and muscle belly with which the ulnar nerve could rest.? I had to do a small excision of the muscle belly distally to create a nice trough for the nerve to lie.? At this point I then mobilized the nerve and this was transposed into the flexor pronator insertion under the fasica flaps.? There was no evidence of kinking/tethering of the nerve.? this was significantly redundant and lax with no signs of tension or entrapment.? I then utilized a 3-0 Ethibond suture and approximated the fascia flaps that was created and the right knee okay okay secured with horizontal interrupted mattress stitches.? I was able to place 2 fingers under the repair with no evidence of entrapment and the elbow was taken through range of motion and no areas of entrapment or kinking were noted on the nerve and the nerve was redundant relaxed in all ranges of motion.? This completed my ulnar nerve decompression of the cubital tunnel as well as ulnar nerve?transposition.? Wound bed was then thoroughly irrigated.? Tourniquet was deflated.? Maintained exact hemostasis with bipolar electrocautery.? I did place a rosita drain to prevent hematoma formation. As result the skin was reapproximated with interrupted Vicry l subcutaneous suture 3-0.? I next utilized a running horizontal mattress stitch with 3-0 nylon.? Extremity was then cleaned and the incision was then covered with Xeroform 4 x 4's ABD Curlex and soft roll and a posterior prefab cubital splint was then applied with an Martinez wrap.? Patient was then awakened from anesthesia and taken to PACU in stable condition. ?Next the wound bed was thoroughly irrigated.? Tourniquet was deflated.? Hemostasis was satisfactory at the?cubital tunnel release surgery site. I then inspected the carpal tunnel incision and this was found to have satisfactory hemostasis and all this was maintained through bipolar electrocautery.? At this point time I sequentially closed?cubital tunnel site with 3-0 Vicryl suture in a running horizontal mattress nylon stitch.? ? The carpal tunnel release surgery was then closed in standard interrupted mattress fashion.? Dressing was Xeroform 4 x 4's ABD Curlex soft roll and an Martinez wrap has a bulky soft dressing and elbow premade splint. Patient was then awakened from anesthesia and taken to PACU in stable condition. Disposition: Patient taken to PACU in stable condition recovering well.? Patient will receive appropriate discharge instructions as well as pain medication postoperatively.? We will follow-up with me in the office in 2 weeks.? Patient understands agrees with current plan.? Patient will follow-up with therapy within the next couple days for dressing takedown and drain removal. All questions answered.? He understands if any questions or concerns and contact the office for follow-up appointment..
--- NOTE | 2023-09-06 12:47 | W.PM.BPON ---
Date of Procedure: [September 06, 2023] Surgeon: [Dr. Cantu DO] Panel Machine Operator(s): [Mika Cantu PA-C] Procedure(s) performed: [Right carpal tunnel release, right cubital tunnel release, right ulnar nerve transposition] Findings of the procedure(s): [Right carpal tunnel syndrome, right cubital tunnel syndrome] Estimated blood loss: [5 ml] Specimen(s) removed: [N/A] Post-operative diagnosis: [Right carpal tunnel syndrome, right cubital tunnel syndrome]
--- NOTE | 2023-09-06 12:50 | PM.PACU ---
PACU note Narrative: Patient is a 63-year-old female just underwent a right carpal tunnel release and right cubital tunnel release with ulnar nerve transposition. Patient transferred to PACU in stable condition. Pain is well controlled. Dressing on hand is dry and in place. Splint on and in place. Patient's fingers are warm and well-perfused. Patient can wiggle fingers. normal cap refill under 2 seconds. Unable to assess sensation due to residual localized anesthetic. Unable to assess elbow range of motion due to splint. Exam: awake Disposition: discharged
--- NOTE | 2023-09-06 14:05 | ANE.PACU2 ---
Inpatient post-anesthesia follow up: Airway intact: Yes Vital signs: Temperature 97.0 F Pulse Rate 63 Respiratory Rate 17 Blood Pressure 118/55 Pulse Oximetry 93 Oxygen Delivery Me thod Room Air Oxygen Flow Rate 6 Fraction of Inspir ed Oxygen Hydration adequate: Yes Nausea and vomiting: No Pain level: 1 Mental status: Baseline
== END 2023-09-06 14:05 | disposition home or self-care (01) ==
PROVIDERS: PCP Family Medicine; Visit Provider Student in an Organized Health Care Education/Training Program
PROC: (CPT 64721; principal; 2023-09-06 11:10)
PROC: (CPT 64718; 2023-09-06 11:10)
PROC: (CPT 64718; 2023-09-06 11:10)
DX: G56.01 Carpal tunnel syndrome, right upper limb (principal); G56.21 Lesion of ulnar nerve, right upper limb; I48.91 Unspecified atrial fibrillation; I25.10 Atherosclerotic heart disease of native coronary artery without angina pectoris; Z95.5 Presence of coronary angioplasty implant and graft; I10 Essential (primary) hypertension; Z95.0 Presence of cardiac pacemaker; E11.9 Type 2 diabetes mellitus without complications; G47.30 Sleep apnea, unspecified
CPT/HCPCS: 64718; 64721; 36415; 36416; 80048; 82962; 85025; 93005; J0131; J0690; J1885; J2405; J2704; J2795; J3010; J7030

== ENCOUNTER 2023-09-08 11:00 | Outpatient (RCR) | payer MEDICARE, SELFPAY | END 2023-09-24 23:59 | disposition home or self-care (01) | LOC: SOT 11:00 | PROVIDERS: PCP Family Medicine; Visit Provider Student in an Organized Health Care Education/Training Program | DX: Z47.89 Encounter for other orthopedic aftercare (principal) | CPT/HCPCS: 97165; 97530 ==

== ENCOUNTER → 2023-09-22 09:01 | Outpatient (BNVA) | payer MEDICARE, SELFPAY | PROVIDERS: PCP Family Medicine; Visit Provider Physician Assistant | DX: Z98.890 Other specified postprocedural states (principal) | CPT/HCPCS: 99024 ==

== ENCOUNTER → 2023-11-03 07:37 | Outpatient (BNVA) | payer MEDICARE, SELFPAY | PROVIDERS: PCP Family Medicine; Visit Provider Physician Assistant | DX: Z98.890 Other specified postprocedural states (principal) | CPT/HCPCS: 99024 ==

== ENCOUNTER → 2023-11-28 13:43 | Outpatient (BNVA) | payer MEDICARE, SELFPAY | PROVIDERS: PCP Family Medicine; Visit Provider Podiatrist Foot & Ankle Surgery | DX: R21 Rash and other nonspecific skin eruption (principal); B35.3 Tinea pedis | CPT/HCPCS: 99203 ==

== ENCOUNTER → 2023-12-26 15:01 | Outpatient (BNVA) | payer MEDICARE, SELFPAY | PROVIDERS: PCP Family Medicine; Visit Provider Podiatrist Foot & Ankle Surgery | DX: R21 Rash and other nonspecific skin eruption (principal); B35.3 Tinea pedis | CPT/HCPCS: 99213 ==

== ENCOUNTER 2024-07-07 17:25 | Emergency (ER) | payer MEDICARE, SELFPAY ==
[2024-07-07 17:31] VITALS: BP 140/87; PULSE 64; RESP 18; TEMP 36.3; O2SAT 97
--- NOTE | 2024-07-07 17:40 | XRR_ITS ---
PROCEDURE INFORMATION: Exam: XR Left Hip Exam date and time: 07/07/2024 5:48 PM Age: 64 years old Clinical indication: Hip pain; Left hip; Patient HX: C/O left groin pain for the past 1-2 weeks that radiates down to the knee. Thinks that she might have pulled a muscle at work 1.5 weeks ago and has hurt since. Reports that she was having to do a lot of side stepping. Sharp pain, rated at 10/10. Worse with movement. ; Additional info: Pain, left hip TECHNIQUE: Imaging protocol: Radiologic exam of the left hip. Views: 2 or 3 views hip with pelvis when performed. COMPARISON: CR XR lumbar spine 6V w f/e [id number] 04/23/2020 12:33 PM FINDINGS: Bones/joints: Moderate osteoarthritis of the left hip without evidence of fracture or subluxation. Prominent gluteal insertional trochanteric enthesophytes. Soft tissues: No gross soft tissue abnormality. XR/XR hip LT 2-3V wo/w pel* [id number] IMPRESSION: 1. Osteoarthritis without evidence of fracture or subluxation. If there is concern for labral, muscle or tendon pathology, follow-up outpatient MRI may be helpful.
--- NOTE | 2024-07-07 17:46 | W.ED.EXTPRO ---
HPI - Extremity Problem General: Chief complaint: Extremity Injury, Lower Stated complaint: groin pain radiating down left leg Time Seen by Provider: 07/07/24 17:39 History of Present Illness: 64-year-old female comes in today for complaints of left inguinal pain. Patient reports that for the last week and a half she has had increased pain and discomfort to the left hip area. Patient appears nontoxic. Patient appears in moderate pain at rest. Related Data Home Medications Medication Instructions Recorded Confirmed lisinopril 10 mg tablet 10 mg PO DAILY@09/25/19 12/26/23 montelukast 10 mg tablet 10 mg PO DAILY@09/25/19 12/26/23 pantoprazole 40 mg tablet,delayed 40 mg PO DAILY@09/25/19 12/26/23 release simvastatin 40 mg tablet 40 mg PO DAILY@09/25/19 12/26/23 calcium 500 mg tablet 500 mg PO DAILY ##0 11/24/20 12/26/23 cholecalciferol (vitamin D3) 25 25 mcg PO DAILY@11/24/20 12/26/23 mcg (1,000 unit) capsule (Vitamin D3) ibuprofen 400 mg tablet 400 mg PO BID PRN Pain 11/24/20 12/26/23 zinc 50 mg capsule 50 mg PO DAILY@11/24/20 12/26/23 fluticasone propionate 50 2 spray intranasal DAILY PRN 11/25/20 12/26/23 mcg/actuation nasal Allergy Symptoms spray,suspension ascorbic acid (vitamin C) 250 mg 250 mg PO DAILY 05/28/21 12/26/23 tablet albuterol sulfate 90 mcg/actuation 1 puff inhalation Q6H PRN 05/29/21 12/26/23 aerosol inhaler Shortness Of Breath fluoxetine 10 mg capsule 10 mg PO BID 06/27/22 12/26/23 sotalol 80 mg tablet 80 mg PO BID 11/11/22 12/26/23 Previous Rx's Medication Instructions Recorded glipizide 5 mg tablet 5 mg PO DAILY@ #90 tabs 11/10/22 buspirone 10 mg tablet 10 mg PO BID@ #180 tabs 11/11/22 furosemide 20 mg tablet 20 mg PO DAILY@ #90 tabs 11/15/22 levothyroxine 175 mcg tablet 175 mcg PO DAILY #90 tabs 05/03/23 triamcinolone acetonide 0.1 % 1 applic topical BID #80 grams 11/28/23 topical cream terbinafine HCl 250 mg tablet 250 mg PO DAILY 14 days #14 tabs 12/26/23 apixaban 5 mg tablet (Eliquis) See Rx Instructions .Route 05/03/24 .COMPLEX #180 tabs tramadol 50 mg tablet 50 mg PO BID PRN pain #10 tabs 07/07/24 Allergies Allergy/AdvReac Type Severity Reaction Status Date / Time latex Allergy Unknown Unknown Verified 07/07/24 17:36 Penicillins Allergy Unknown Unknown Verified 07/07/24 17:36 adhesive tape Allergy RASH Verified 07/07/24 17:36 Review of Systems General: Reports: 10 or more systems reviewed and unremarkable except in HPI and below Musc: Reports: joint pain (Left hip) PFSH ED PFSH: Medical History Hypertension Hx of sleep apnea Hx of colonic polyps Hx of simple renal cyst History of diverticulosis Hx of hemorrhoids Hx of coronary artery disease Hx of myocardial infarction History of COPD History of degenerative joint disease Hx of osteoporosis Hx of gout Hx of gastroesophageal reflux (GERD) History of depression History of fibromyalgia Hx of diastolic dysfunction Hx of chronic congestive heart failure Hx of obesity Hx of nicotine dependence Hx of type 2 diabetes mellitus History of fracture of lower extremity Atrial fibrillation Surgical History Status post placement of cardiac pacemaker Hx of coronary angioplasty Hx of skin graft Hx of tonsillectomy History of coronary artery stent placement Hx of breast reduction, elective History of total left knee replacement History of total right knee replacement (TKR) Hx of colonoscopy Hx of esophagogastroduodenoscopy Family History Other Family history non-contributory Social History Smoking and tobacco/nicotine status: current every day tobacco/nicotine user Alcohol intake: never Substance/Drug Use: never Physical Exam Const: COMMON NORMALS: alert HENMT: COMMON NORMALS: normocephalic HEAD & SCALP: normocephalic Neck/C-Spine: COMMON NORMALS: full ROM Chest: COMMONS NORMALS: normal inspection of the chest Resp: COMMON NORMALS: normal respiratory effort GI: COMMON NORMALS: Soft to palpation PALPATION: Yes Soft to palpation : COMMON NORMALS: Yes no CVA tenderness BLADDER/KIDNEY EXAM: Yes no CVA tenderness Back/Pelvis: COMMON NORMALS: no CVA tenderness Extremity: NARRATIVE EXTREMITY EXAM: Tenderness to the left inguinal area. No swelling is noted distally. Pulses are intact distally. Increased pain with abduction of the hip. Increased pain with leg lift at 45 degrees. Neuro: SENSORIUM/ORIENTATION: Yes alert Course Vital Signs: Vital signs: Vital Signs Temperature 97.3 F L 07/07/24 17:31 Pulse Rate 63 07/07/24 18:10 Respiratory Rate 17 07/07/24 18:07 Blood Pressure 107/55 07/07/24 18:10 Pulse Oximetry 96 07/07/24 18:10 Oxygen Delivery Me thod Room Air 07/07/24 18:10 MDM - Extremity (Nontraumatic) Medical Decision Making 64-year-old female comes in today with increased hip pain for the last week and a half. Patient denies any falls or injuries. Patient does work in a job where she has to stand for long periods of time and has frequent sidestepping motions. Differential diagnosis of OA of the hip, tendinitis, bursitis. X-ray of the hip noted some mild joint degeneration but otherwise no fractures. Reviewed exam with patient with recommendation for treatment for pain and need for follow-up for further evaluation. Patient reported understanding. XR interpretation done by ED provider, pending radiology final review Discharge Plan Discharge Patient Disposition: Home Clinical Impression: Arthralgia of hip, left Condition: Stable Prescriptions: New tramadol 50 mg tablet 50 mg PO BID PRN (Reason: pain) Qty: 10 0RF No Action ascorbic acid (vitamin C) 250 mg tablet 250 mg PO DAILY sotalol 80 mg tablet 80 mg PO BID buspirone 10 mg tablet 10 mg PO BID@09,21 Qty: 180 3RF triamcinolone acetonide 0.1 % cream 1 applic topical BID Qty: 80 2RF fluoxetine 10 mg capsule 10 mg PO BID Rx Instructions: administer in the morning and at noon/midday terbinafine HCl 250 mg tablet 250 mg PO DAILY 14 Days Qty: 14 0RF Rx Instructions: Take one tablet daily for 2 weeks glipizide 5 mg tablet 5 mg PO DAILY@09 Qty: 90 3RF furosemide 20 mg tablet 20 mg PO DAILY@09 Qty: 90 3RF levothyroxine 175 mcg tablet 175 mcg PO DAILY Qty: 90 3RF Eliquis 5 mg tablet See Rx Instructions .ROUTE .COMPLEX Qty: 180 3RF Dose Instruction: TAKE 1 TABLET TWICE DAILY Rx Instructions: TAKE 1 TABLET TWICE DAILY simvastatin 40 mg tablet 40 mg PO DAILY@21 pantoprazole 40 mg tablet,delayed release (DR/EC) 40 mg PO DAILY@09 lisinopril 10 mg tablet 10 mg PO DAILY@09 montelukast 10 mg tablet 10 mg PO DAILY@21 cholecalciferol (vitamin D3) [Vitamin D3] 25 mcg (1,000 unit) Capsule 25 mcg PO DAILY@09 calcium 500 mg Tablet 500 mg PO DAILY Qty: 0 ibuprofen 400 mg Tablet 400 mg PO BID PRN (Reason: Pain) zinc 50 mg Capsule 50 mg PO DAILY@09 fluticasone propionate 50 mcg/actuation [place],Suspension 2 spray INTRANASAL DAILY PRN (Reason: Allergy Symptoms) albuterol sulfate 90 mcg/actuation HFA aerosol inhaler 1 puff INHALATION Q6H PRN (Reason: Shortness Of Breath) Discharge Orders: Discharge ED (Routine); Ordered 07/07/24 Ordered By: Avtar Bryson Referrals: Maria E Mason PA [Primary Care Provider] - Discharge Diet: Usual diet Discharge Activity: Increase activity as tolerated Patient Instructions: Osteoarthritis (ED) Activity Restrictions/Additional Instructions: Activity as tolerated. Use acetaminophen and/or ibuprofen as needed to help control pain. Use tramadol for severe pain. Follow-up with primary care for further instruction and evaluation. Return to ED for new concerns. 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
[2024-07-07 18:07] VITALS: RESP 17
[2024-07-07] MEDS: morphine 4 mg/mL SDV 1 mL IM (18:07)
[2024-07-07] MEDS: dexamethasone 10 mg/mL INJ IM (18:08)
[2024-07-07 18:10] VITALS: BP 107/55; PULSE 63; O2SAT 96
[2024-07-07 19:31] VITALS: BP 122/54; PULSE 61; O2SAT 94
== END 2024-07-07 19:32 | disposition home or self-care (01) ==
PROVIDERS: Emergency Provider Nurse Practitioner Family; PCP Physician Assistant
DX: M25.552 Pain in left hip (principal); Z79.01 Long term (current) use of anticoagulants; Z79.84 Long term (current) use of oral hypoglycemic drugs
CPT/HCPCS: 73502; 96372; 99284; J1100; J2270

== ENCOUNTER 2024-08-02 14:09 | Outpatient (CLI) | payer MEDICARE, SELFPAY ==
--- NOTE | 2024-08-02 14:11 | XR_ITS ---
WS: [id number] SCREENING DEXA SCAN [employer] CLINICAL INFORMATION: POSTMENOPAUSAL COMPARISON: None. FINDINGS: The L1-L4 bone mineral density measures 1.247 g/cm2. This corresponds to a T score score of 0.6 and Z score of 1.4. Left femoral neck bone mineral density measures 0.912 g/cm2. This corresponds to a T score of -0.8 an d Z score of -0.1. Right femoral neck bone mineral density measures 0.720 g/cm2. This corresponds to a T score -2.3of an d Z score of -1.6. Mean femoral neck bone mineral density measures 0.816 g/cm2. This corresponds to a T score of -1.5 an d Z score of -0.8. XR/XR DEXA axial skeleton* [id number] IMPRESSION: Normal bone mineralization lumbar spine. Osteopenia femoral necks. Patient's FRAX calculated 10 year probability for major osteoporotic fracture i s 12.9% and osteoporotic hip fracture is 4.0%.
== END 2024-08-02 14:10 | disposition home or self-care (01) ==
LOC: RAD 14:10
PROVIDERS: PCP Physician Assistant; Visit Provider Nurse Practitioner Family
DX: Z78.0 Asymptomatic menopausal state (principal); M85.88 Other specified disorders of bone density and structure, other site
CPT/HCPCS: 77080

== ENCOUNTER 2024-08-23 09:40 | Outpatient (CLI) | payer MEDICARE, SELFPAY ==
--- NOTE | 2024-08-23 09:47 | CT_ITS ---
WS: [id number] LDCT LUNG CANCER SCREENING HISTORY: NICOTINE DEPENDENCE TECHNIQUE: Axial imaging performed from the apices to 1 cm below the costophrenic angles. Coronal and sagittal reformats are submitted with axial MIP series. All CT scans at [facility] use at least one of these dose optimization techniques: automated exposure control; mA and/or kV adjustment per patient size (includes targeted exams where dose is matched to clinical indication); or iterativ e reconstruction. DLP: 96.81 mGy.cm DIvol: Mean CTDIvol: 2.60 (mGy) COMPARISON: 05/21/2020 Diagnostic quality: Satisfactory Lungs: There are a few tiny calcified and noncalcified pulmonary nodules which are not increasing or changing in size. There are no suspicious masses. No endobronchial lesions. Heart: Mild cardiomegaly.. Other findings: Moderate atherosclerosis thoracic aorta. Mildly dilated pulmonary artery. LEFT subcla vian dual-lead pacer. Bilateral calcifications within each breast are coarse. No mediastinal or hilar adenopathy identified. Small hiatal hernia. Bilateral adrenal gland thickening. Exophytic mass assoc iated with the posterior upper pole of the LEFT kidney is noted to be a cyst on the study from 021. CT/CT lung screening [id number] IMPRESSION: LUNG-RADS: 2-Benign Appearance or Behavior FOLLOW UP: 12 Month: Continue annual screening with LDCT OTHER FINDINGS (S MODIFIER): None.
== END 2024-08-23 09:41 | disposition home or self-care (01) ==
LOC: RAD 09:40
PROVIDERS: PCP Physician Assistant; Visit Provider Nurse Practitioner Family
DX: Z12.2 Encounter for screening for malignant neoplasm of respiratory organs (principal); F17.210 Nicotine dependence, cigarettes, uncomplicated; I70.0 Atherosclerosis of aorta; R92.1 Mammographic calcification found on diagnostic imaging of breast; K44.9 Diaphragmatic hernia without obstruction or gangrene; E27.9 Disorder of adrenal gland, unspecified; N28.1 Cyst of kidney, acquired
CPT/HCPCS: 71271

== ENCOUNTER 2024-08-27 14:27 | Outpatient (CLI) | payer MEDICARE, SELFPAY ==
--- NOTE | 2024-08-27 14:29 | MM_ITS ---
WS: [id number] DIAGNOSTIC BILATERAL DIGITAL BREAST TOMOSYNTHESIS MAMMOGRAPHY WITH CAD HISTORY: HX OF BREAST CANCER, history of RIGHT breast cancer. Bilateral breast reduction surgery. COMPARISON: 04/14/2022, 03/19/2021 TECHNIQUE: Bilateral craniocaudad, mediolateral oblique, and mediolateral views are submitted with to mosynthesis and SM. Computer aided detection utilized. Breast composition: The breasts are almost entirely fatty. Very dense dystrophic calcifications in each breast along the mammoplasty scar site. Coarse calcifica tions have progressed over several years.. No new grouping of calcifications or pleomorphic calcifica tions. No nipple retraction. MM/MM diag BI tomosynthesis [id number] IMPRESSION: BI-RADS: 2 - Benign. FOLLOW UP: 1 Year Follow-up
== END 2024-08-27 14:28 | disposition home or self-care (01) ==
LOC: RAD 14:27
PROVIDERS: PCP Physician Assistant; Visit Provider Nurse Practitioner Family
DX: Z85.3 Personal history of malignant neoplasm of breast (principal); R92.313 Mammographic fatty tissue density, bilateral breasts; R92.1 Mammographic calcification found on diagnostic imaging of breast
CPT/HCPCS: 77062; G0279

== ENCOUNTER → 2024-10-15 08:19 | Outpatient (BNVA) | payer MEDICARE, SELFPAY | PROVIDERS: PCP Physician Assistant; Visit Provider Student in an Organized Health Care Education/Training Program | DX: M16.12 Unilateral primary osteoarthritis, left hip (principal) | CPT/HCPCS: 99214 ==

== ENCOUNTER → 2024-11-20 08:49 | Outpatient (BNVA) | payer MEDICARE, SELFPAY | PROVIDERS: PCP Physician Assistant; Visit Provider Internal Medicine | DX: Z45.018 Encounter for adjustment and management of other part of cardiac pacemaker (principal) | CPT/HCPCS: 93296 ==

== ENCOUNTER → 2024-12-13 09:00 | Outpatient (BNVA) | payer MEDICARE, SELFPAY | PROVIDERS: PCP Physician Assistant; Visit Provider Student in an Organized Health Care Education/Training Program | DX: M16.12 Unilateral primary osteoarthritis, left hip (principal) | CPT/HCPCS: 20610; 77002; J3301; J9999 ==

== ENCOUNTER 2025-02-05 20:05 | Emergency (ER) | payer MEDICARE, SELFPAY ==
[2025-02-05 20:11] VITALS: BP 144/101; PULSE 91; RESP 16; TEMP 36.3; O2SAT 94; BMI 31.8
--- NOTE | 2025-02-05 21:32 | W.ED.NAVMDI ---
HPI - Nausea/Vomiting/Diarrhea General: Chief complaint: Nausea/Vomiting/Diarrhea Stated complaint: n/v cant eat days headache Time Seen by Provider: 02/05/25 20:55 History of Present Illness: 64-year-old female with a history of obesity, hypertension, sleep apnea, diverticulosis, coronary artery disease, COPD, gout, GERD, depression, fibromyalgia, diastolic heart failure, type 2 diabetes and chronic anticoagulation on Eliquis who presents the emergency room with nausea and vomiting for the last 3 days. She relates this possibly to upping her Ozempic shot. She does not have any abdominal pain. She says she has been keeping down water but anytime she eats anything solid she throws up and she became worried because her vomit was green. She cannot get an appointment with her PCP until Monday. No fevers. No altered mental status. She has had a headache. No known sick contacts. Related Data Home Medications ?Medication ?Instructions ?Recorded ?Confirmed lisinopril 10 mg tablet 10 mg PO DAILY@09/25/19 12/13/24 montelukast 10 mg tablet 10 mg PO DAILY@09/25/19 12/13/24 pantoprazole 40 mg tablet,delayed 40 mg PO DAILY@09/25/19 12/13/24 release simvastatin 40 mg tablet 40 mg PO DAILY@09/25/19 12/13/24 calcium 500 mg tablet 500 mg PO DAILY ##0 11/24/20 12/13/24 cholecalciferol (vitamin D3) 25 25 mcg PO DAILY@11/24/20 12/13/24 mcg (1,000 unit) capsule (Vitamin D3) ibuprofen 400 mg tablet 400 mg PO BID PRN Pain 11/24/20 12/13/24 zinc 50 mg capsule 50 mg PO DAILY@11/24/20 12/13/24 fluticasone propionate 50 2 spray intranasal DAILY PRN 11/25/20 12/13/24 mcg/actuation nasal Allergy Symptoms spray,suspension ascorbic acid (vitamin C) 250 mg 250 mg PO DAILY 05/28/21 12/13/24 tablet albuterol sulfate 90 mcg/actuation 1 puff inhalation Q6H PRN 05/29/21 12/13/24 aerosol inhaler Shortness Of Breath fluoxetine 10 mg capsule 10 mg PO BID 06/27/22 12/13/24 sotalol 80 mg tablet 80 mg PO BID 11/11/22 12/13/24 Previous Rx's ?Medication ?Instructions ?Recorded glipizide 5 mg tablet 5 mg PO DAILY@09 #90 tabs 11/10/22 buspirone 10 mg tablet 10 mg PO BID@, #180 tabs 11/11/22 furosemide 20 mg tablet 20 mg PO DAILY@09 #90 tabs 11/15/22 levothyroxine 175 mcg tablet 175 mcg PO DAILY #90 tabs 05/03/23 triamcinolone acetonide 0.1 % 1 applic topical BID #80 grams 11/28/23 topical cream terbinafine HCl 250 mg tablet 250 mg PO DAILY 14 days #14 tabs 12/26/23 apixaban 5 mg tablet (Eliquis) See Rx Instructions .Route 05/03/24 .COMPLEX #180 tabs tramadol 50 mg tablet 50 mg PO Q6H PRN pain 5 days #20 11/07/24 tabs cephalexin 500 mg tablet 500 mg PO TID 7 days #21 tabs 02/05/25 ondansetron 8 mg disintegrating 8 mg PO Q6H #14 tabs 02/05/25 tablet promethazine 25 mg rectal 25 mg IA Q6H PRN nausea and 02/05/25 suppository vomiting #12 ea Allergies Allergy/AdvReac Type Severity Reaction Status Date / Time latex Allergy Unknown Unknown Verified 02/05/25 20:14 Penicillins Allergy Unknown Unknown Verified 02/05/25 20:14 adhesive tape Allergy RASH Verified 02/05/25 20:14 Review of Systems Narrative: Constitutional symptoms: Negative except as documented in HPI. Skin symptoms: Negative except as documented in HPI. Eye symptoms: Negative except as documented in HPI. ENMT symptoms: Negative except as documented in HPI. Respiratory symptoms: Negative except as documented in HPI. Cardiovascular symptoms: Negative except as documented in HPI. Gastrointestinal symptoms: Negative except as documented in HPI. Genitourinary symptoms: Negative except as documented in HPI. Musculoskeletal symptoms: Negative except as documented in HPI. Neurologic symptoms: Negative except as documented in HPI. Psychiatric symptoms: Negative except as documented in HPI. Endocrine symptoms: Negative except as documented in HPI. PFS ED PFSH: Medical History Hypertension Hx of sleep apnea Hx of colonic polyps Hx of simple renal cyst History of diverticulosis Hx of hemorrhoids Hx of coronary artery disease Hx of myocardial infarction History of COPD History of degenerative joint disease Hx of osteoporosis Hx of gout Hx of gastroesophageal reflux (GERD) History of depression History of fibromyalgia Hx of diastolic dysfunction Hx of chronic congestive heart failure Hx of obesity Hx of nicotine dependence Hx of type 2 diabetes mellitus History of fracture of lower extremity Atrial fibrillation Surgical History Status post placement of cardiac pacemaker Hx of coronary angioplasty Hx of skin graft Hx of tonsillectomy History of coronary artery stent placement Hx of breast reduction, elective History of total left knee replacement History of total right knee replacement (TKR) Hx of colonoscopy Hx of esophagogastroduodenoscopy Family History Other Family history non-contributory Social History Smoking and tobacco/nicotine status: current every day tobacco/nicotine user Alcohol intake: never Substance/Drug Use: never Physical Exam Narrative: EXAM NARRATIVE: General: Alert, no acute distress. Skin: Warm, dry. Head: Normocephalic, atraumatic. Neck: Supple, trachea midline. Eye: Extraocular movements are intact. Ears, nose, mouth and throat: Tacky oral mucosa Cardiovascular: Regular, Normal peripheral perfusion. Respiratory: Lungs are clear to auscultation, respirations are non-labored, breath sounds are equal, Symmetrical chest wall expansion. Gastrointestinal: Soft, Nontender, Non distended Musculoskeletal: Normal ROM, no deformity. Neurological: Alert and oriented, No focal neurological deficit observed. Psychiatric: Cooperative, appropriate mood & affect. Course Vital Signs: Vital signs: Vital Signs Temperature 97.3 F L 02/05/25 20:11 Pulse Rate 90 02/05/25 22:02 Respiratory Rate 16 02/05/25 22:02 Blood Pressure 147/93 02/05/25 22:02 Pulse Oximetry 95 02/05/25 22:02 Oxygen Delivery Me thod Room Air 02/05/25 22:02 MDM - Nausea/Vomiting/Diarrhea Medical Decision Making Medical decision making: Differential diagnosis for this patient with nausea and vomiting including but not limited to and based on the above HPI, review of systems and physical exam: Urinary tract infection. Appendicitis. Cholecystitis. Colitis. small bowel obstruction. crohn's flare. pancreatitis. gastritis. peptic ulcer. cyclic vomiting. Viral illness. Influenza. COVID. Also in this patient would have concern for medication reaction to the semaglutide. Orders placed to evaluate differential diagnosis based on the above differential, HPI and physical exam Lab Review: Laboratory results were reviewed and interpreted by myself the emergency room physician. Mild leukocytosis. Polycythemia with a hemoglobin of 20. BUN is mildly elevated at 16. Creatinine normal at 0.9. Urinalysis is positive for infection and is concentrated. Nitrate positive, leukocyte Estrace positive with greater than 100 whites in the urine. 2+ bacteria. Flu COVID and RSV are negative CT of the abdomen pelvis: Multiple nonemergent findings. Gallbladder appeared somewhat distended but she has no pain in that area so she most definitely does not have cholecystitis. She has some vascular disease but no signs of bowel ischemia. Once again she has no abdominal pain. Thickened distal esophagus which might represent esophagitis. Think this is likely just from her vomiting recently. Diverticulosis without diverticulitis and concern for avascular necrosis of her hip. Discussed that she needs to have outpatient follow-up on these findings. This was reviewed and interpreted by myself the emergency room physician. I also reviewed the radiology report. I reviewed the patient's medical record. Reexamination: Patient remained stable. No increased work of breathing. No altered mental status. No focal motor deficits. Patient is been tolerating fluids. Discussed that Gatorade etc. that have sugar and salt can be helpful. Assessment and plan: Urinary tract infection Dehydration nausea and vomiting ? IV Zofran, IV normal saline bolus and IV Rocephin in the emergency room. - Discharged home - Discussed plan with patient. Answered any questions. - Evaluation and treatment of this problem were appropriate in the emergency setting. Lab Data 02/05/25 21:36 02/05/25 21:36 Radiology Impressions Abdomen/Pelvis CT 02/05/25 22:10 IMPRESSION: 1. Gallbladder appears distended with equivocal wall thickening. No high density stones or biliary tree dilation. Ultrasound may be helpful for further evaluation if patient has symptoms referable to the right upper quadrant. 2. There is advanced arterial disease including long segment high-grade stenosis of the superior mesenteric artery and focal stenosis of the origin of the otherwise patent celiac artery. There are no current findings of bowel ischemia or infarction. 3. Thickened distal esophagus could represent esophagitis. Mass is not excluded but is considered unlikely given morphology. 4. Diverticulosis without diverticulitis. 5. Spinal stenosis at L4-L5. Correlate with any symptoms of neurogenic claudication. 6. Advanced arthropathy of the left hip with possible avascular necrosis in the slightly flattened femoral head. Laboratory Results WBC 11.30 10^3/uL (3.29-11.43) 02/05/25 21:36 RBC 6.86 10^6/uL (3.85-5.65) H 02/05/25 21:36 Hgb 20.00 g/dL (11.27-16.99) H 02/05/25 21:36 Hct 58.6 % (36-47) H 02/05/25 21:36 MCV 85.4 fl (85-98) 02/05/25 21:36 MCH 29.2 pg (27-33) 02/05/25 21: MCHC 34.1 g/dL (30-55) 02/05/25 21:36 RDW 13.4 % (12.1-15.1) 02/05/25 21:36 Plt Count 217 10^3/cmm (157-399) 02/05/25 21:36 MPV 11.1 fL (7.4-10.4) H 02/05/25 21:36 Neut % (Auto) 71.5 % 02/05/25 21:36 Lymph % (Auto) 16.9 % 02/05/25 21:36 [place] % (Auto) 10.4 % 02/05/25 21:36 Eos % (Auto) 0.7 % 02/05/25 21:36 Baso % (Auto) 0.2 % 02/05/25 21:36 Neut # (Auto) 8.08 10^3/uL (1.8-7.7) H 02/05/25 21:36 Lymph # (Auto) 1.9 10^3/uL (0.8-4.8) 02/05/25 21:36 [place] # (Auto) 1.2 10^3/uL (0.2-0.9) H 02/05/25 21:36 Eos # (Auto) 0.1 10^3/uL (0.0-0.8) 02/05/25 21:36 Baso # (Auto) 0.0 10^3/uL (0.0-0.1) 02/05/25 21:36 Nucleated RBC % (auto) 0 % 02/05/25 21:36 Nucleated RBCs # 0.0 /100WBC 02/05/25 21:36 Sodium 135 mmol/L (136-145) L 02/05/25 21:36 Potassium 4.1 mmol/L (3.5-5.1) 02/05/25 21:36 Chloride 95 mmol/L (98-107) L 02/05/25 21:36 Carbon Dioxide 21 mmol/L (22-29) L 02/05/25 21:36 Anion Gap 23.1 (5-19) H 02/05/25 21:36 BUN 16 mg/dL (8-23) 02/05/25 21:36 Creatinine 0.9 mg/dL (0.5-0.9) 02/05/25 21:36 GFR Calculation 62.6 mL/min (90-130) L 02/05/25 21:36 Glucose 120 mg/dL (65-115) H 02/05/25 21:36 Calculated Osmolality 282 mOsm/kg (285-295) L 02/05/25 21:36 Lactic Acid 1.5 mmol/L (0.5-2.2) 02/05/25 21:36 Calcium 10.3 mg/dL (8.5-10.5) 02/05/25 21:36 Total Bilirubin 1.0 mg/dL (0.15-1.2) 02/05/25 21:36 AST 25 U/L (0-32) 02/05/25 21:36 ALT 17 U/L (0-33) 02/05/25 21:36 Alkaline Phosphatase 98 U/L (35-105) 02/05/25 21:36 C-Reactive Protein 7.5 mg/L (0.0-4.9) H 02/05/25 21:36 Total Protein 7.6 g/dL (6.6-8.7) 02/05/25 21:36 Albumin 4.6 g/dL (3.5-5.2) 02/05/25 21:36 Globulin 3.0 g/dL (1.3-4.6) 02/05/25 21:36 Lipase 25 U/L (13-60) 02/05/25 21:36 Urine Color [place] (Yellow) A 02/05/25 21:50 Urine Appearance Cloudy (CLEAR) A 02/05/25 21:50 Urine pH 5.5 (5-7) 02/05/25 21:50 Ur Specific [place] 1.030 (1.005-1.030) 02/05/25 21:50 Urine Protein 4+ (Negative) A 02/05/25 21:50 Urine Glucose (UA) Negative (Normal) 02/05/25 21:50 Urine Ketones 1+ (Negative) H 02/05/25 21:50 Urine Blood 1+ (Negative) A 02/05/25 21: Urine Nitrate Positive (Negative) A 02/05/25 21:50 Urine Bilirubin 3+ (Negative) H 02/05/25 21:50 Urine Urobilinogen 1.0 mg/dL (Negative) 02/05/25 21:50 Ur Leukocyte Esterase 1+ (Negative) A 02/05/25 21:50 Urine RBC 3-5 /hpf (0-2) 02/05/25 21:50 Urine WBC >100 /hpf (0-5) H 02/05/25 21:50 Ur Squamous Epith Cells 6-10 /hpf (0-5) 02/05/25 21:50 Amorphous Sediment Not Reportable 02/05/25 21:50 Urine Bacteria 2+ /hpf (NONE) H 02/05/25 21:50 Hyaline Casts 35.98 /lpf 02/05/25 21:50 Influenza A (PCR) Negative (Negative) 02/05/25 22:01 Influenza Type B (PCR) Negative (Negative) 02/05/25 22:01 RSV (PCR) Negative (Negative) 02/05/25 22:01 SARS-CoV-2 (PCR) Negative (Negative) 02/05/25 22:01 All radiology interpretation(s) finalized by discharge Discharge Plan Discharge Patient Disposition: Home Clinical Impression: Urinary tract infection, Dehydration, Nausea & vomiting Condition: Stable Prescriptions: New promethazine 25 mg suppository 25 mg IA Q6H PRN (Reason: nausea and vomiting) Qty: 12 0RF ondansetron 8 mg tablet,disintegrating 8 mg PO Q6H Qty: 14 0RF Rx Instructions: Take 1/2-1 tab every 6 hours as needed for nausea and vomiting cephalexin 500 mg tablet 500 mg PO TID 7 Days Qty: 21 0RF No Action ascorbic acid (vitamin C) 250 mg tablet 250 mg PO DAILY sotalol 80 mg tablet 80 mg PO BID buspirone 10 mg tablet 10 mg PO BID@09,21 Qty: 180 3RF triamcinolone acetonide 0.1 % cream 1 applic topical BID Qty: 80 2RF fluoxetine 10 mg capsule 10 mg PO BID Rx Instructions: administer in the morning and at noon/midday terbinafine HCl 250 mg tablet 250 mg PO DAILY 14 Days Qty: 14 0RF Rx Instructions: Take one tablet daily for 2 weeks glipizide 5 mg tablet 5 mg PO DAILY@09 Qty: 90 3RF furosemide 20 mg tablet 20 mg PO DAILY@09 Qty: 90 3RF levothyroxine 175 mcg tablet 175 mcg PO DAILY Qty: 90 3RF Eliquis 5 mg tablet See Rx Instructions .ROUTE .COMPLEX Qty: 180 3RF Dose Instruction: TAKE 1 TABLET TWICE DAILY Rx Instructions: TAKE 1 TABLET TWICE DAILY tramadol 50 mg tablet 50 mg PO Q6H PRN (Reason: pain) 5 Days Qty: 20 0RF simvastatin 40 mg tablet 40 mg PO DAILY@21 pantoprazole 40 mg tablet,delayed release (DR/EC) 40 mg PO DAILY@09 lisinopril 10 mg tablet 10 mg PO DAILY@09 montelukast 10 mg tablet 10 mg PO DAILY@21 cholecalciferol (vitamin D3) [Vitamin D3] 25 mcg (1,000 unit) Capsule 25 mcg PO DAILY@09 calcium 500 mg Tablet 500 mg PO DAILY Qty: 0 ibuprofen 400 mg Tablet 400 mg PO BID PRN (Reason: Pain) zinc 50 mg Capsule 50 mg PO DAILY@09 fluticasone propionate 50 mcg/actuation [place],Suspension 2 spray INTRANASAL DAILY PRN (Reason: Allergy Symptoms) albuterol sulfate 90 mcg/actuation HFA aerosol inhaler 1 puff INHALATION Q6H PRN (Reason: Shortness Of Breath) Discharge Orders: Discharge ED (Routine); Ordered 02/05/25 Ordered By: Candis Iniguez Referrals: Maria E Mason PA [Primary Care Provider, [facility]] Discharge Diet: Advance as tolerated Discharge Activity: Increase activity as tolerated Patient Instructions: Urinary Tract Infection in Older Adults (ED), Opioid Safety, Pain Management Activity Restrictions/Additional Instructions: You have several findings on CT that require follow-up with your primary care provider. These are nonemergent. You have some advanced degenerative changes of your left hip. Also a thickened esophagus that might need evaluation with endoscopy. Thank you for choosing [facility] for your healthcare needs today. You have been screened and evaluated and felt safe for discharge. Health conditions do change or evolve sometimes and as such it is important that you follow up with your Primary Doctor to be re checked, 3-5 days is a general good time frame for follow up. You are always welcome to return to the ED for re assessment if your symptoms are worsening or you have new concerns Print Language: Belgian Coding Level of Care Code ED Supervisor Rose Grading for Wendie Mata
[2025-02-05] MEDS: sodium chloride 0.9% 1,000 ML 999 ML IV (21:57)
[2025-02-05] MEDS: ondansetron 2 mg/ML SDV 2 mL 8 MG IVP (21:58)
[2025-02-05 22:02] VITALS: BP 147/93; PULSE 90; RESP 16; O2SAT 95
[2025-02-05 22:04] LABS: Lactic Sepsis W/Reflex 1.5 mmol/L (0.5-2.2)
[2025-02-05 22:05] LABS: Alanine Aminotransferase 17 U/L (0-33); Albumin Level 4.6 g/dL (3.5-5.2); Alkaline Phosphatase 98 U/L (35-105); Anion Gap 23.1 (5-19); Aspartate Amino Transferase 25 U/L (0-32); Blood Urea Nitrogen 16 mg/dL (8-23); C Reactive Protein 7.5 mg/L (0.0-4.9); Calcium 10.3 mg/dL (8.5-10.5); Carbon Dioxide 21 mmol/L (22-29); Chloride 95 mmol/L (98-107); Creatinine Clr Calc Pharmacy 59.8229; Glomerular Filtration Rate 62.6 mL/min (90-130); Glucose 120 mg/dL (65-115); Lipase 25 U/L (13-60); Osmolality Calculated 282 mOsm/kg (285-295); Potassium 4.1 mmol/L (3.5-5.1); Sodium 135 mmol/L (136-145); Total Protein 7.6 g/dL (6.6-8.7)
[2025-02-05 22:05] LABS: Bilirubin Urine 3+ (Negative); Blood Urine 1+ (Negative); Glucose Urine UA Negative (Normal); Ketones Urine 1+ (Negative); Leukocyte Esterase Urine 1+ (Negative); Nitrate Urine Positive (Negative); Protein Urine 4+ (Negative); Urine Appearance Cloudy (CLEAR); pH Urine 5.5 (5-7)
[2025-02-05 22:10] LABS: Bacteria Urine 2+ /hpf; Hyaline Casts Urine 35.98 /lpf; Universal Test for UA Present (0); WBC Urine >100 /hpf (0-5)
--- NOTE | 2025-02-05 22:10 | CTR_ITS ---
PROCEDURE INFORMATION: Exam: CT Abdomen And Pelvis With Contrast Exam date and time: 02/05/2025 10:24 PM Age: 64 years old Clinical indication: Abdominal pain; Generalized TECHNIQUE: Imaging protocol: Computed tomography of the abdomen and pelvis with contrast. Radiation optimization: All CT scans at this facility use at least one of these dose optimization techniques: automated exposure control; mA and/or kV adjustment per patient size (includes targeted exams where dose is matched to clinical indication); or iterative reconstruction. Contrast material: OMNI 350; Contrast volume: 100 ml; Contrast route: INTRAVENOUS (IV); COMPARISON: CT abdomen w con* [id number] 02/12/2021 10:41 AM RADIATION DOSE METRICS: Total DLP (mGy-cm): 746.8 FINDINGS: Tubes, catheters and devices: Pacemaker leads are noted. Lungs: Calcified granuloma right lower lobe, otherwise clear basilar lung parenchyma. Pleural spaces: No pleural fluid or pneumothorax. Heart: Mild cardiomegaly. Esophagus: Thickened distal esophagus without discrete mass. Liver: Normal configuration. Homogeneous parenchyma. Gallbladder and biliary ducts: The postprandial gallbladder is distended. No high density stones are seen. No biliary tree dilation. Pancreas: Pancreas is normal in appearance without evidence of edema or mass. Spleen: Normal. No splenomegaly. Adrenal glands: Stable adrenal thickening. Kidneys and ureters: Stable exophytic cyst left kidney. No evidence of renal obstruction, solid mass, or pyelonephritis. Stomach and bowel: Postprandial stomach. Normal caliber small bowel. Distal colonic diverticulosis without evidence of acute diverticulitis. No bowel wall pneumatosis. Bowel enhances normally throughout. Appendix: Normal appendix is confirmed. Intraperitoneal space: No free air. No significant fluid collection. Vasculature: Ectasia of the infrarenal abdominal aorta measures up to 2.2 cm. There is prominent calcific plaque at the origin of each renal artery. Patent celiac artery with moderate plaque at the origin. There is segmental high-grade stenosis in the SMA measuring approximately 3.5 cm in length. KEVON is patent. No portal venous gas. Lymph nodes: No enlarged lymph nodes. Urinary bladder: Urinary bladder is decompressed. Mural thickening is nonspecific in this setting. Reproductive: Atrophic uterus as expected. No adnexal masses. Bones/joints: Diffuse spinal degenerative change. There is prominent facet arthropathy at L4-L5 with degenerative anterolisthesis of L4 on L5 causing moderate to severe spinal canal stenosis. Right worse than left sacroiliac osteoarthritis. There is demarcated sclerosis in the left femoral head with slight flattening of the weight-bearing surface. Findings are concerning for avascular necrosis. There is moderate to advanced osteoarthritis in the left hip. Heterotopic ossification is noted in the right hip adjacent to the greater trochanter. There is a lucent track in the right femur suggesting removal of previous hardware. Soft tissues: Unremarkable. CT/CT abdomen pelvis w con* [id number] IMPRESSION: 1. Gallbladder appears distended with equivocal wall thickening. No high density stones or biliary tree dilation. Ultrasound may be helpful for further evaluation if patient has symptoms referable to the right upper quadrant. 2. There is advanced arterial disease including long segment high-grade stenosis of the superior mesenteric artery and focal stenosis of the origin of the otherwise patent celiac artery. There are no current findings of bowel ischemia or infarction. 3. Thickened distal esophagus could represent esophagitis. Mass is not excluded but is considered unlikely given morphology. 4. Diverticulosis without diverticulitis. 5. Spinal stenosis at L4-L5. Correlate with any symptoms of neurogenic claudication. 6. Advanced arthropathy of the left hip with possible avascular necrosis in the slightly flattened femoral head.
[2025-02-05 22:19] LABS: Basophils % 0.2 %; Eosinophils # 0.1 10^3/uL (0.0-0.8); Eosinophils % 0.7 %; Hematocrit 58.6 % (36-47); Lymphocytes # 1.9 10^3/uL (0.8-4.8); Lymphocytes % 16.9 %; Mean Corpuscular HGB Conc 34.1 g/dL (30-55); Mean Corpuscular Hemoglobin 29.2 pg (27-33); Mean Corpuscular Volume 85.4 fl (85-98); Mean Platelet Volume 11.1 fL (7.4-10.4); Monocytes # 1.2 10^3/uL (0.2-0.9); Monocytes % 10.4 %; Neutrophils # 8.08 10^3/uL (1.8-7.7); Neutrophils % 71.5 %; Nucleated Red Blood Cells % 0 %; Platelet Count 217 10^3/cmm (157-399); Red Blood Count 6.86 10^6/uL (3.85-5.65); Red Cell Distribution Width 13.4 % (12.1-15.1)
[2025-02-05] MEDS: iohexol 350 mg/mL 500 mL Btl (per mL) IV (22:27)
[2025-02-05 22:30] LABS: UA Slide Review UA Slide Review Perf; Urine Color Orange (Yellow)
[2025-02-05 22:31] LABS: Add Urine Culture? Yes
[2025-02-05] MEDS: cefTRIAXone 1,000 mg SDV 1000 MG IVP (22:54)
[2025-02-05 22:57] VITALS: BP 146/82; PULSE 86; RESP 16; O2SAT 96
[2025-02-05 22:57] LABS: Influenza A NEGATIVE (Negative); Influenza B NEGATIVE (Negative); Respiratory Syncytial Virus Ce NEGATIVE (Negative); SARS-CoV-2 PCR NEGATIVE (Negative)
[2025-02-05 23:19] VITALS: BP 146/82; PULSE 95; O2SAT 96
== END 2025-02-05 23:22 | disposition home or self-care (01) ==
PROVIDERS: Emergency Provider Emergency Medicine; PCP Physician Assistant
DX: N39.0 Urinary tract infection, site not specified (principal); E86.0 Dehydration; R11.2 Nausea with vomiting, unspecified; Z79.01 Long term (current) use of anticoagulants; Z11.52 Encounter for screening for COVID-19; Z72.0 Tobacco use; J44.9 Chronic obstructive pulmonary disease, unspecified; E11.9 Type 2 diabetes mellitus without complications; I11.0 Hypertensive heart disease with heart failure; I50.30 Unspecified diastolic (congestive) heart failure
CPT/HCPCS: 36415; 74177; 80053; 81001; 83605; 83690; 85025; 86140; 87040; 87086; 87637; 99284; J0696; J2405; J7030

== ENCOUNTER → 2025-03-19 13:22 | Outpatient (BNVA) | payer MEDICARE, SELFPAY | PROVIDERS: PCP Physician Assistant; Visit Provider Student in an Organized Health Care Education/Training Program | DX: M16.12 Unilateral primary osteoarthritis, left hip (principal) | CPT/HCPCS: 99213 ==

== ENCOUNTER 2025-03-27 19:44 | Emergency (ER) | payer MEDICARE, SELFPAY ==
[2025-03-27 19:49] VITALS: BP 127/62; PULSE 83; RESP 16; TEMP 36.4; O2SAT 97; BMI 29.8
--- OUTSIDE RECORDS SUMMARY | 2025-03-27 19:54 | XMS_ITS | Clinical Summary ---
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 04/15/2019 Active pantoprazole (PROTONIX) 40 mg Tablet, Delayed Release (E.C.) Take 40 mg by mouth daily. 02/20/2019 Active glipiZIDE (GLUCOTROL) 5 mg tablet Take 5 mg by mouth daily. 04/16/2019 Active metFORMIN (GLUCOPHAGE XR) 500 mg Extended Release 24 hour tablet Take 500 mg by mouth 2 times daily. 04/16/2019 Active cholecalciferol, vitamin D3, 50,000 unit Tablet Take 400 Units by mouth daily. Active furosemide (LASIX) 20 mg tablet Take 20 mg by mouth daily. 04/22/2019 Active simvastatin (ZOCOR) 40 mg tablet Take 40 mg by mouth daily at bedtime. 04/22/2019 Active sotalol (BETAPACE) 80 mg tablet Take 80 mg by mouth 2 times daily. 02/20/2019 Active potassium chloride (KLOR-CON) 10 mEq Extended Release tablet Take 10 mEq by mouth daily. 04/25/2019 Active levothyroxine 175 mcg tablet Take 175 mcg by mouth daily. 03/13/2019 Active omega-3 fatty acids (FISH OIL ORAL) Take 4,000 mg by mouth daily. Active ferrous sulfate 325 mg (65 mg iron) tablet Take 325 mg by mouth daily. Active aspirin (TONY CHEWABLE) 81 mg Tablet, Chewable Take 81 mg by mouth daily. Active clonazePAM (KlonoPIN) 0.5 mg Tablet Take 0.5 mg by mouth 1 time daily as needed for Anxiety. Active Active Problems No known active problems Family History Medical History Relation Name Comments Diabetes Father Lung Cancer Father Heart Disease Mother Osteoporosis Mother Relation Name Status Comments Father Mother Social History Tobacco Use Types Packs/Day Years Used Date Smoking Tobacco: Every Day Cigarettes Smokeless Tobacco: Never Tobacco Cessation:Ready to Q uit: No Alcohol Use Standard Drinks/Week Comments Not Currently 0 (1 standard drink = 0.6 oz pur e alcohol) Comments Unknown Sex and Gender Information Value Date Recorded Sex Assigned at Not on file Legal Sex Female 11:18 PM CDT Gender Identity Not on file Sexual Orientation Not on file Last Filed Vital Signs Vital Sign Reading Time Taken Comments Blood Pressure 138/72 05/08/2019 8:58 AM CDT Pulse - - Temperature - - Respiratory Rate - - Oxygen Saturation - - Inhaled Oxygen Concentration - - Weight 95.7 kg (211 lb) 05/08/2019 8:58 AM CDT Height 157.5 cm (5' 2 ) 05/08/2019 8:58 AM CDT Body Mass Index 38.59 05/08/2019 8:58 AM CDT Plan of Treatment Health Maintenance Due Date Last Done Comments DTAP/TDAP/TD VACCINES (1 - Tdap) 1977 PNEUMOCOCCAL VACCINE 50+ YEARS (1 of 2 - PCV) 06/08/19 77 BREAST CANCER SCREENING 1998 COLORECTAL SCREENING 2003 Colorectal Cancer Screening 2003 FIT-DNA Q 3 years 2003 FIT/FOBT Q 1 year 2003 Flex Sig/CT Colonography Q 5 years 2003 ZOSTER VACCINE (1 of 2) 2008 OSTEOPOROSIS SCREENING 2023 INFLUENZA VACCINE (#1) 2024 RSV VACCINE (60+ or ) (1 - 1-dose 75+ series) 2033 Insurance [employer] [id number] HMO
--- OUTSIDE RECORDS SUMMARY | 2025-03-27 19:54 | XMS_ITS ---
Author Organization Unknown Vital Signs BpStanding BpSitting BpSupine Date Temperature HeartRate Weight Hei ght Spo2 Respiration Bmi HeadCircumference FieldCount TimeRecorded NeckCircumferen ce WaistCircumference Pulse 142/86 04/19 00:00 :00 97.4 196,4.0 0 5,1 98 37.1 00:00 81 105/58 03/17 00:00 :00 97.8 167,6.0 0 5,1 98 31.6 00:00 58 136/80 12/19 00:00 :00 97 181,16. 00 5,1 97 18 34.4 00:00 76 130/82 07/22 00:00 :00 195,8.0 0 5,1 97 20 36.9 00:00 89 140/80 09/10 00:00 :00 98 188,0.0 0 5,1 97 20 35.5 00:00 78
--- OUTSIDE RECORDS SUMMARY | 2025-03-27 19:54 | XMS_ITS | Clinical Summary ---
[facility] Organization 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 2 Active apixaban (Eliquis) 5 mg tablet 2 times daily. Activ e aspirin (TONY CHEWABLE) 81 mg Tablet, Chewable Take 81 mg by mouth daily. Active blood sugar diagnostic (True Metrix Glucose Test Strip) Strip as directed Activ e blood sugar diagnostic (True Metrix Glucose Test Strip) Strip as directed Activ e blood glucose control, low (True Metrix Level 1) Solution as directed Active busPIRone (BUSPAR) 10 mg tablet Take 10 mg by mouth 2 times daily. 2 Active busPIRone (BUSPAR) 10 mg tablet 2 times daily. 0 Active calcium as carbonate (OS-JOSE) 1,250 mg (500 mg elemental) tablet 2 times daily. Activ e cholecalciferol , vitamin D3, 1,250 mcg (50,000 unit) Tablet Take 400 Units by mouth daily. Active clonazePAM (KlonoPIN) 0.5 mg Tablet Take 0.5 mg by mouth 1 time daily as needed. Active ferrous sulfate 325 mg (65 mg iron) tablet Take 325 mg by mouth daily. Active FLUoxetine (PROzac) 10 mg capsule 1 capsule Active fluticasone propionate (Flonase Allergy Relief) 50 mcg/spray Sargeant, Suspension nasal inhaler 1 spray in each nostril 1 Active furosemide (LASIX) 20 mg tablet 1 Tablet. Active glipiZIDE (GLUCOTROL) 5 mg tablet Take 1 Tablet by mouth daily. Active ibuprofen (MOTRIN) 400 mg tablet 2 times daily. 0 Active ketoconazole (NIZORAL) 2 % Cream apply externally TO THE affected area one TO two times a DAY UNTIL resolved 2 Active lancets (TRUEplus Lancets) 28 gauge as directed Active levothyroxine 150 mcg tablet 1 tablet in the morning on an empty stomach Active lisinopriL (PRINIVIL) 10 mg tablet 2 Active lisinopriL (PRINIVIL) 10 mg tablet Take 1 Tablet by mouth daily. Active montelukast (SINGULAIR) 10 mg tablet Take 1 Tablet by mouth daily. Active pantoprazole (PROTONIX) 40 mg Tablet, Delayed Release (E.C.) 2 Active pantoprazole (PROTONIX) 40 mg Tablet, Delayed Release (E.C.) Take 1 Tablet by mouth daily. Active potassium chloride (KLOR-CON) 10 mEq Extended Release tablet 1 tablet with food Active potassium chloride (MICRO-K EXTENCAPS) 10 mEq Extended Release capsule 1 Capsule daily. Active simvastatin (ZOCOR) 40 mg tablet Take 1 Tablet by mouth daily at bedtime. Active sotaloL (BETAPACE) 80 mg tablet 2 times daily. Activ e triamcinolone acetonide (KENALOG) 0.1 % Cream apply a small AMOUNT TO affected area TWICE DAILY 2 Active triamcinolone acetonide (KENALOG) 0.1 % Ointment 2 times daily. 0 Active furosemide (LASIX) 20 mg tablet Take 20 mg by mouth daily. 9 Active aspirin (TONY CHEWABLE) 81 mg Tablet, Chewable Take 81 mg by mouth daily. 9 Active clonazePAM (KlonoPIN) 0.5 mg Tablet Take 0.5 mg by mouth 1 time daily as needed for Anxiety. 9 Active glipiZIDE (GLUCOTROL) 5 mg tablet Take 5 mg by mouth daily. 9 Active simvastatin (ZOCOR) 40 mg tablet Take 40 mg by mouth daily at bedtime. Active sotaloL (BETAPACE) 80 mg tablet Take 80 mg by mouth 2 times daily. Active ferrous sulfate 325 mg (65 mg iron) tablet Take 325 mg by mouth daily. Active potassium chloride (KLOR-CON) 10 mEq Extended Release tablet Take 10 mEq by mouth daily. Active warfarin (COUMADIN) 5 mg tablet Take 5 mg by mouth daily Mon-Mon-Mon take 1/2 tablet Tue, Thur, Sat, Sun take full tab. Active pantoprazole (PROTONIX) 40 mg Tablet, Delayed Release (E.C.) Take 40 mg by mouth daily. Active cholecalciferol , vitamin D3, 1,250 mcg (50,000 unit) Tablet Take 400 Units by mouth daily. Active docosahexaenoic acid/epa (FISH OIL ORAL) Take 4,000 mg by mouth daily. Active levothyroxine 175 mcg tablet Take 175 mcg by mouth daily. Active metFORMIN (GLUCOPHAGE XR) 500 mg Extended Release 24 hour tablet Take 500 mg by mouth 2 times daily. Active Active Problems No known active problems Encounters Date Type Department Care Team Description 03/18/2025 External Device Data ST[facility] ABSTRACTION Provider, Abstract from Last 3 Months Family History Medical History Relation Name Comments Diabetes Father Lung Cancer Father Heart Disease Mother Osteoporosis Mother Relation Name Status Comments Father Mother Social History Tobacco Use Types Packs/Day Years Used Date Smoking Tobacco: Every Day Cigarettes Smokeless Tobacco: Never Tobacco Cessation:Ready to Q uit: Not Asked; Counseling Given: Not Answered Alcohol Use Standard Drinks/Week Comments Not Currently 0 (1 standard drink = 0.6 oz pur e alcohol) Comments Unknown Sex and Gender Information Value Date Recorded Sex Assigned at Not on file Legal Sex Female 2:35 PM [employer] Gender Identity Not on file Sexual Orientation Not on file Last Filed Vital Signs Vital Sign Reading Time Taken Comments Blood Pressure 118/74 05/13/2022 3:43 PM CDT Pulse 69 05/13/2022 3:43 PM CDT Temperature - - Respiratory Rate - - Oxygen Saturation - - Inhaled Oxygen Concentration - - Weight 95.7 kg (211 lb) 05/13/2022 3:43 PM CDT Height 157.5 cm (5' 2 ) 05/13/2022 3:43 PM CDT Body Mass Index 38.59 05/13/2022 3:43 PM CDT Plan of Treatment Health Maintenance Due Date Last Done Comments DIABETES ANNUAL FOOT EXAM 1976 DIABETES ANNUAL RETINAL EXAM 1976 DTAP/TDAP/TD VACCINES (1 - Tdap) 1977 PNEUMOCOCCAL VACCINE 50+ YEA RS (1 of 2 - PCV) 1977 BREAST CANCER SCREENING 1998 COLORECTAL SCREENING 2003 Colorectal Cancer Screening 2003 FIT-DNA Q 3 years 2003 FIT/FOBT Q 1 year 2003 Flex Sig/CT Colonography Q 5 years 2003 ZOSTER VACCINE (1 of 2) 2008 RSV VACCINE (60+ or ) (1 - Risk 60-74 years 1-dose series) 2018 DIABETES MICROALBUMIN ANNUAL SCREEN 01/09/202001/08 LDL CHOLESTEROL ANNUAL 01/09/2020 01/08/2019 DIABETES HBA1C Q 6 MONTHS 06/04/2021 12/02/2020, OSTEOPOROSIS SCREENING 2023 INFLUENZA VACCINE (#1) 2025 Procedures Procedure Name Priority Date/Time Associated Diagnosis Comments MICROALBUMIN/CREATININ E RATIO, RANDOM UR Routine 01/08/2019 LIPID PANEL Routine 01/08/2019 HEMOGLOBIN A1C Routine 01/08/2019 from Last 3 Months or Most Recently Relevant to Health Maintenance Results * MICROALBUMIN/CREATININE RATIO, RANDOM UR (01/08/2019) ABSTRACTED MICROALBUMIN,URI NE 6.0 EXTERNAL LAB MICROALBUMIN, URINE EXTERNAL LAB CREATININE, URINE EXTERNAL LAB MICROALBUMIN/CRE AT RATIO, UR EXTERNAL LAB MICROALBUMIN, URINE ^ EXTERNAL LAB CREATININE, URINE ^ EXTERNAL LAB MICROALBUMIN/CRE AT RATIO, UR ^ EXTERNAL LAB Urine URINE SPECIMEN OBTAINED BY CLEAN CATCH PROCEDURE / Unknown 01/08/2019 Narrative EXTERNAL LAB - 01/08/2019 12:00 AM CDT This order was created through External Result Entry us Abstract [facility] Provider URINE ORDERABLES Edited Re sult - Final Performing Organization Address [facility] de Phone Number EXTERNAL LAB * HEMOGLOBIN A1C (01/08/2019) ABSTRACTED HGB A1C 6.4 EXTERNAL LAB HEMOGLOBIN A1C ^ EXTERNAL LAB HEMOGLOBIN A1C EXTERNAL LAB GLUCOSE, MEAN BLOOD EXTERNAL LAB Blood 01/08/2019 Narrative EXTERNAL LAB - 01/08/2019 12:00 AM CDT This order was created through External Result Entry us Abstract Sp Provider CHEMISTRY ORDERABLES Edite d Result - Final Performing Organization Address [facility] de Phone Number EXTERNAL LAB * LIPID PANEL (01/08/2019) ABSTRACTED CHOLESTEROL 147 EXTERNAL LAB ABSTRACTED TRIGLYCERIDE 192 EXTERNAL LAB ABSTRACTED HDL 33 EXTERNAL LAB ABSTRACTED LDL CALCULATED 76 EXTERNAL LAB CHOLESTEROL ^ EXTERNAL LAB TRIGLYCERIDE ^ EXTERNAL LAB HDL ^ EXTERNAL LAB LDL CALCULATED ^ EXTERNAL LAB Blood 01/08/2019 Narrative EXTERNAL LAB - 01/08/2019 12:00 AM CDT This order was created through External Result Entry us Abstract [facility] Provider CHEMISTRY ORDERABLES Edite d Result - Final Performing Organization Address [facility] de Phone Number EXTERNAL LAB from Last 3 Months or Most Recently Relevant to Health Maintenance Insurance MEDICARE HMO & [employer]
--- OUTSIDE RECORDS SUMMARY | 2025-03-27 19:55 | XMS_ITS | Patient Health Record ---
Author Organization [facility] Address [address] [place] [address] Care Team Providers Care Floor Winder Name Role Phone Nirmal Hines Primary Care Provider [phone] Allergies Allergen (clinical drug ingredient) Drug/Non Drug Allergy documented on EMR Reaction Allergy Type Onset Date Status penicillin V Penicillin V Potassium Unknown Drug Allergy Active Latex Latex turns skin red Allergy Activ e Reason For Referral No Information Medications Medication SIG (Take, Route, Frequency, Duration) Notes Start Date End Date Status Furosemide 20 MG 1 tablet Orally Once a day for 90 days Active Eliquis 5 MG as directed Orally BID for 30 days Active Magnesium 65 MG 1 tablet with a meal Orally Once a day for 30 day(s) Active Calcium 500 MG 1 tablet with meals Orally Twice a day Active Levothyroxine Sodium 150 MCG 1 tablet in the morning on an empty stomach Orally Once a day for 90 days Active True Metrix Blood Glucose Test - as directed In Vitro as needed for 90 days Active True Metrix Level 1 Low as directed In Vitro for 90 days Active TRUEplus Lancets 28G - as directed for 9 0 days Active Potassium Chloride ER 10 MEQ 1 tablet with food Orally Once a day for 60 days Active Alcohol Swabs 70 % as directed for 90 days Active True Metrix Blood Glucose Test - as directed In Vitro for 90 days Active Lisinopril 10 MG TAKE 1 TABLET EVERY DAY Active Potassium Chloride ER 10 MEQ TAKE 1 CAPSULE EVERY DAY Active Albuterol Sulfate HFA 108 (90 Base) MCG/ACT 1 puff as needed Inhalation every 4 hrs for 90 days Active glipiZIDE 5 MG TAKE 1 TABLET EVERY DAY Orally Once a day for 90 days Active Simvastatin 40 MG TAKE 1 TABLET AT BEDTIME Orally Once a day for 90 days Active Zinc 25 MG 1 tablet Orally Once a day Active Ibuprofen 400 MG 1 tablet with food or milk as needed Orally BID for 30 days 11/18/2019 Active Montelukast Sodium 10 MG TAKE 1 TABLET EVERY DAY Orally Once a day for 90 days Active Claritin 10 MG 1 tablet Orally Once a day for 30 day(s) 12/30/2019 Active busPIRone HCl 10 MG 1 tablet as needed Orally Twice a day for 30 days 11/18/2019 Active Alcohol Pads 70 % as directed for 90 days Active Vitamin D3 25 MCG (1000 UT) 1 tablet Orally Once a day Active Pantoprazole Sodium 40 MG TAKE 1 TABLET EVERY DAY Active Flonase Allergy Relief 50 MCG/ACT 1 spray in each nostril Nasally Once a day for 30 day(s) 10/06/2020 Active Sotalol HCl 80 MG 0.5 tablet as needed for elevated HR Orally every 12 hrs for 90 days takes if HR gets above 70s-80s and stays. Patient states she takes a 1/2 tab if necessary Active Triamcinolone Acetonide 0.1 % 1 application Externally Twice a day for 14 days 04/23/2020 Active True Metrix Air Glucose Meter w/Device as directed for 30 days Active PROzac 10 MG 1 capsule Orally Once a day for 30 days Active Social History Tobacco Use: Social History Observation Description Date Details (start date - stop date) Current Smoker NA - NA Household Question Answer Notes Marital status: Level of education: not finished high school xTobacco Use/Smoking Question Answer Notes Are you a current smoker How many cigarettes a day do you smoke? 6-10 Alcohol Screen (Audit-C) Question Answer Notes Did you have a drink containing alcohol in the p ast year? No Points 0 Interpretation Negative PHQ-9 Question Answer Notes Little interest or pleasure in doing things Not at all Feeling down, depressed, or hopeless Not at all Trouble falling or staying asleep, or sleeping t oo much Not at all Feeling tired or having little energy Not at all Poor appetite or overeating Not at all Feeling bad about yourself, or that you are a failure, or have let yourself or your family down Not at all Trouble concentrating on thi ngs, such as reading the newspaper or watching television Not at all Moving or speaking so slowly that other people could have noticed. Or the opposite ? being so fidgety or restless that you have been moving around a lot more than usual Not at all Thoughts that you would be b ofelia off , or of hurting yourself in some way Not at all Total Score 0 Section Notes: PHQ-9: 01/01/21 PHQ-9: 01/01/21 Problems Problem Type SNOMED Code ICD Code Onset Dates Problem Status W/U Status Risk Notes Problem Personal history of primary malignant neoplasm of breast (111698569) History of breast cancer (Z85.3) Active confirmed Problem 06493517 Type 2 diabetes mellitus with other specified complication (E11.69) Active confirmed Problem 001533662 Obesity, unspecified (E66.9) Active confirmed Problem 566732904 Chronic GERD (K21.9) 08/13/20 Active confirmed Problem 13774811 Anxiety (F41.9) Active confirmed Problem 89792760 Hypothyroidism, unspecified type (E03.9) Active confirmed Problem 30768620 Cigarette nicotine dependence without complication (F17.210) Active confirmed Problem 66084026 Hyperlipidemia, unspecified hyperlipidemia type (E78.5) Active confirmed Problem 09449859 Obstructive slee p apnea (G47.33) Active confirmed Problem 61227115 Atrial fibrillation (I48.91) 08/13/20 Active confirmed Problem 348730215 Moderate episode of recurrent major depressive disorder (F33.1) Active confirmed Problem [id number] Osteoarthritis o f both knees, unspecified osteoarthritis type (M17.0) Active confirmed Problem 059601024 Chronic diastoli c heart failure (I50.32) 08/13/20 Active confirmed Problem 7807048 Essential hypertension, benign (I10) 08/13/20 Active confirmed Problem 89962803 Chronic obstructive pulmonary disease (COPD) (J44.9) 08/13/20 Active confirmed Problem 472641026336114 Lumbago with sciatica, right side (M54.41) Inactive confirmed Problem 391931173 Lumbago with sciatica, left side (M54.42) Inactive confirmed Problem 844803533 Seasonal allergies (J30.2) Inactive confirmed Plan Of Treatment No Information Insurance Providers Payer Name Payer Address Payer Phone Subscriber Number Group Number Insured Name Patient Relationship to Insured Coverage Start Date Coverage End Date [employer] - Out of Network [address] [address] LUCIANNOHEMYALYSSA N, ALICE [phone] [id number] Trena Segura Self - patient is the insured Medical (General) History Medical History History ICD Code Hypothyroidism Gastro-esophageal reflux disease without esophagitis Atrial fibrillation Chronic diastolic (congestive) heart love lure Diabetes mellitus type 2, uncontrolled, without complications Fatigue COPD (chronic obstructive pulmonary dise ase) MARIE (obstructive sleep apnea) HTN (hypertension) Tobacco dependence [place] (myocardial infarction) Fatty liver iron deficiency anemia vitamin D deficiency Arthritis Surgical History Surgery Date(Month/Year) tonsillectomy skin grafts breast reduction femur fracture repair knee replacement Hospitalization History Reason Date(Month/Year) afib 11/2019 afib 09/2019 afib 06/2019 skin grafts femur fracture
[2025-03-27] MEDS: tetracaine 0.5% Op Soln 4 mL Btl 1 DROP EYE-RIGHT (20:37)
--- NOTE | 2025-03-27 20:45 | W.ED.EYEPROB ---
HPI - Eye Problem General: Chief complaint: Eye Problems Stated complaint: lasiks done today. scratchy pain Time Seen by Provider: 03/27/25 20:07 History of Present Illness: Patient had right eye capsulectomy performed today and is now having right eye pain. She states it feels like there is something scratching her right eye. Related Data Home Medications ?Medication ?Instructions ?Recorded ?Confirmed lisinopril 10 mg tablet 10 mg PO DAILY@09/25/19 03/19/25 montelukast 10 mg tablet 10 mg PO DAILY@09/25/19 03/19/25 pantoprazole 40 mg tablet,delayed 40 mg PO DAILY@09/25/19 03/19/25 release simvastatin 40 mg tablet 40 mg PO DAILY@09/25/19 03/19/25 calcium 500 mg tablet 500 mg PO DAILY ##0 11/24/20 03/19/25 cholecalciferol (vitamin D3) 25 25 mcg PO DAILY@11/24/20 03/19/25 mcg (1,000 unit) capsule (Vitamin D3) ibuprofen 400 mg tablet 400 mg PO BID PRN Pain 11/24/20 03/19/25 zinc 50 mg capsule 50 mg PO DAILY@11/24/20 03/19/25 fluticasone propionate 50 2 spray intranasal DAILY PRN 11/25/20 03/19/25 mcg/actuation nasal Allergy Symptoms spray,suspension ascorbic acid (vitamin C) 250 mg 250 mg PO DAILY 05/28/21 03/19/25 tablet albuterol sulfate 90 mcg/actuation 1 puff inhalation Q6H PRN 05/29/21 03/19/25 aerosol inhaler Shortness Of Breath fluoxetine 10 mg capsule 10 mg PO BID 06/27/22 03/19/25 sotalol 80 mg tablet 80 mg PO BID 11/11/22 03/19/25 Previous Rx's ?Medication ?Instructions ?Recorded glipizide 5 mg tablet 5 mg PO DAILY@ #90 tabs 11/10/22 buspirone 10 mg tablet 10 mg PO BID@ #180 tabs 11/11/22 furosemide 20 mg tablet 20 mg PO DAILY@ #90 tabs 11/15/22 levothyroxine 175 mcg tablet 175 mcg PO DAILY #90 tabs 05/03/23 triamcinolone acetonide 0.1 % 1 applic topical BID #80 grams 11/28/23 topical cream terbinafine HCl 250 mg tablet 250 mg PO DAILY 14 days #14 tabs 12/26/23 apixaban 5 mg tablet (Eliquis) See Rx Instructions .Route 05/03/24 .COMPLEX #180 tabs tramadol 50 mg tablet 50 mg PO Q6H PRN pain 5 days #20 11/07/24 tabs ondansetron 8 mg disintegrating 8 mg PO Q6H #14 tabs 02/05/25 tablet promethazine 25 mg rectal 25 mg NE Q6H PRN nausea and 02/05/25 suppository vomiting #12 ea polymyxin B sulfate 10,000 1 drp ophthalmic (eye) QID 7 days 03/27/25 unit-trimethoprim 1 mg/mL eye drops #10 mL propylene glycol 1 %-glycerin 0.3 1 drp ophthalmic (eye) 5XD PRN dry 03/27/25 % eye drops (Lubricant (propylene eye(s) #15 mL glycol-glycerin)) Allergies Allergy/AdvReac Type Severity Reaction Status Date / Time latex Allergy Unknown Unknown Verified 03/27/25 19:55 Penicillins Allergy Unknown Unknown Verified 03/27/25 19:55 adhesive tape Allergy RASH Verified 03/27/25 19:55 PFS ED PFSH: Medical History Hypertension Hx of sleep apnea Hx of colonic polyps Hx of simple renal cyst History of diverticulosis Hx of hemorrhoids Hx of coronary artery disease Hx of myocardial infarction History of COPD History of degenerative joint disease Hx of osteoporosis Hx of gout Hx of gastroesophageal reflux (GERD) History of depression History of fibromyalgia Hx of diastolic dysfunction Hx of chronic congestive heart failure Hx of obesity Hx of nicotine dependence Hx of type 2 diabetes mellitus History of fracture of lower extremity Atrial fibrillation Surgical History Status post placement of cardiac pacemaker Hx of coronary angioplasty Hx of skin graft Hx of tonsillectomy History of coronary artery stent placement Hx of breast reduction, elective History of total left knee replacement History of total right knee replacement (TKR) Hx of colonoscopy Hx of esophagogastroduodenoscopy Family History Other Family history non-contributory Social History Smoking and tobacco/nicotine status: current every day tobacco/nicotine user Alcohol intake: never Substance/Drug Use: never Physical Exam Eye: COMMON NORMALS: Equal, round and reactive pupils present PERIORBITAL: periorbital findings normal EYELID: eyelids normal CONJUNCTIVA: Yes other (Right eye with injected conjunctiva) PUPIL: Yes Equal, round and reactive pupils present and Yes Pupil accommodation reflex normal Neck/C-Spine: COMMON NORMALS: no JVD Resp: COMMON NORMALS: normal respiratory effort Cardio: COMMON NORMALS: no JVD, regular rate, regular rhythm, S1 normal heart sound present, S2 normal heart sound present, No gallops present (Cardio), No clicks present (Cardio), No murmurs present (Cardio), No rub (Cardio) and Peripheral pulses 2+ throughout RATE: regular rate RHYTHM: regular rhythm HEART SOUNDS: S1 normal heart sound present and S2 normal heart sound present PERIPHERAL PULSES: Peripheral pulses 2+ throughout Course Vital Signs: Vital signs: Vital Signs Temperature 97.5 F L 03/27/25 19:49 Pulse Rate 83 03/27/25 19:49 Respiratory Rate 16 03/27/25 19:49 Blood Pressure 127/62 03/27/25 19:49 Pulse Oximetry 97 03/27/25 19:49 Oxygen Delivery Me thod Room Air 03/27/25 19:49 MDM - Eye Problem Medical Decision Making Discussed case with Dr. Das, signal integrity engineer who did procedure today. He recommends treating with antibiotic drops as well as lubricant drops. Discussed this with the patient who agrees. Recommended patient continue these knowing that she should start improving fairly significantly. Most likely patient with corneal abrasion secondary to having her eye numbed and then procedure today. No radiology studies performed this visit Discharge Plan Discharge Patient Disposition: Home Clinical Impression: Acute eye pain Condition: Stable Prescriptions: New Lubricant (t-clkgml-pwmouauo) 1-0.3 % drops 1 drp ophthalmic (eye) 5XD PRN (Reason: dry eye(s)) Qty: 15 0RF polymyxin B sulf-trimethoprim 10,000 unit- 1 mg/mL drops 1 drp ophthalmic (eye) QID 7 Days Qty: 10 0RF No Action ascorbic acid (vitamin C) 250 mg tablet 250 mg PO DAILY sotalol 80 mg tablet 80 mg PO BID buspirone 10 mg tablet 10 mg PO BID@09,21 Qty: 180 3RF triamcinolone acetonide 0.1 % cream 1 applic topical BID Qty: 80 2RF fluoxetine 10 mg capsule 10 mg PO BID Rx Instructions: administer in the morning and at noon/midday terbinafine HCl 250 mg tablet 250 mg PO DAILY 14 Days Qty: 14 0RF Rx Instructions: Take one tablet daily for 2 weeks glipizide 5 mg tablet 5 mg PO DAILY@09 Qty: 90 3RF furosemide 20 mg tablet 20 mg PO DAILY@09 Qty: 90 3RF levothyroxine 175 mcg tablet 175 mcg PO DAILY Qty: 90 3RF Eliquis 5 mg tablet See Rx Instructions .ROUTE .COMPLEX Qty: 180 3RF Dose Instruction: TAKE 1 TABLET TWICE DAILY Rx Instructions: TAKE 1 TABLET TWICE DAILY tramadol 50 mg tablet 50 mg PO Q6H PRN (Reason: pain) 5 Days Qty: 20 0RF simvastatin 40 mg tablet 40 mg PO DAILY@21 pantoprazole 40 mg tablet,delayed release (DR/EC) 40 mg PO DAILY@09 lisinopril 10 mg tablet 10 mg PO DAILY@09 montelukast 10 mg tablet 10 mg PO DAILY@21 cholecalciferol (vitamin D3) [Vitamin D3] 25 mcg (1,000 unit) Capsule 25 mcg PO DAILY@09 calcium 500 mg Tablet 500 mg PO DAILY Qty: 0 ibuprofen 400 mg Tablet 400 mg PO BID PRN (Reason: Pain) zinc 50 mg Capsule 50 mg PO DAILY@09 fluticasone propionate 50 mcg/actuation [place],Suspension 2 spray INTRANASAL DAILY PRN (Reason: Allergy Symptoms) albuterol sulfate 90 mcg/actuation HFA aerosol inhaler 1 puff INHALATION Q6H PRN (Reason: Shortness Of Breath) promethazine 25 mg suppository 25 mg NE Q6H PRN (Reason: nausea and vomiting) Qty: 12 0RF ondansetron 8 mg tablet,disintegrating 8 mg PO Q6H Qty: 14 0RF Rx Instructions: Take 1/2-1 tab every 6 hours as needed for nausea and vomiting Discharge Orders: Discharge ED (Routine); Ordered 03/27/25 Ordered By: Hadley Caraballo Referrals: Maria E Mason PA [Primary Care Provider, [employer] Generator Assembler] Patient Instructions: Opioid Safety, Pain Management, Patient Portal & Orly Instructions Print Language: [place] Coding Level of Care Code ED Platform Consultant for Wendie Mata
== END 2025-03-27 21:20 | disposition home or self-care (01) ==
PROVIDERS: Emergency Provider Emergency Medicine; PCP Physician Assistant
DX: H57.11 Ocular pain, right eye (principal); Z79.01 Long term (current) use of anticoagulants; Z72.0 Tobacco use; J44.9 Chronic obstructive pulmonary disease, unspecified; E11.9 Type 2 diabetes mellitus without complications; I25.10 Atherosclerotic heart disease of native coronary artery without angina pectoris; I11.0 Hypertensive heart disease with heart failure; I50.32 Chronic diastolic (congestive) heart failure
CPT/HCPCS: 99283; J9999

== ENCOUNTER → 2025-05-14 12:57 | Outpatient (BNVA) | payer MEDICARE, SELFPAY | PROVIDERS: PCP Physician Assistant; Visit Provider Internal Medicine Cardiovascular Disease | DX: Z45.018 Encounter for adjustment and management of other part of cardiac pacemaker (principal) | CPT/HCPCS: 93296 ==

== ENCOUNTER → 2025-07-11 09:01 | Outpatient (BNVA) | payer MEDICARE, SELFPAY | PROVIDERS: PCP Physician Assistant; Visit Provider Student in an Organized Health Care Education/Training Program | DX: M16.12 Unilateral primary osteoarthritis, left hip (principal); Z71.89 Other specified counseling | CPT/HCPCS: 20610; 77002; J3301; J9999 ==

== ENCOUNTER 2025-08-29 11:42 | Outpatient (CLI) | payer MEDICARE, SELFPAY ==
--- NOTE | 2025-08-29 11:45 | CT_ITS ---
WS: [id number] LDCT LUNG CANCER SCREENING HISTORY: NICOTINE DEPENDENCE,CIGARETTES TECHNIQUE: Axial imaging performed from the apices to 1 cm below the costophrenic angles. Coronal and sagittal reformats are submitted with axial MIP series. All CT scans at [facility] use at least one of these dose optimization techniques: automated exposure control; mA and/or kV adjustment per patient size (includes targeted exams where dose is matched to clinical indication); or iterative reconstruction. DLP: 56.97 mGy.cm DIvol: Mean CTDIvol: 1.00 (mGy) COMPARISON: 08/23/2024, 05/21/2020 Diagnostic quality: Satisfactory Lungs: Lungs are moderately hyperexpanded. No new or enlarging pulmonary mass or nodule. There are a few benign very tiny nodules and a few calcified nodules which are stable. No pneumonia. No endobronchial lesions. Heart: Mild cardiomegaly.. LEFT subclavian dual-lead cardiac pacer. Other findings: Atherosclerosis thoracic aorta. No aneurysm. Dilated pulmonary artery to 3.6 cm. No mediastinal or hilar adenopathy. Dense calcifications within each breast. Incompletely visualized mass from the posterior LEFT kidney noted to be a cyst on a prior study from 2020. Mild thickening of each adrenal gland. CT/CT lung screening [id number] IMPRESSION: LUNG-RADS: 2-Benign Appearance or Behavior FOLLOW UP: 12 Month: Continue annual screening with LDCT OTHER FINDINGS (S MODIFIER): None.
== END 2025-08-29 11:43 | disposition home or self-care (01) ==
LOC: RAD 11:43
PROVIDERS: PCP Physician Assistant; Visit Provider Physician Assistant
DX: Z12.2 Encounter for screening for malignant neoplasm of respiratory organs (principal); F17.210 Nicotine dependence, cigarettes, uncomplicated; R91.8 Other nonspecific abnormal finding of lung field; Z95.0 Presence of cardiac pacemaker; I70.0 Atherosclerosis of aorta; R92.1 Mammographic calcification found on diagnostic imaging of breast; N28.1 Cyst of kidney, acquired; E27.9 Disorder of adrenal gland, unspecified
CPT/HCPCS: 71271